=== PATIENT | male | born 1955 | race Caucasian/White ===

== ENCOUNTER 2016-03-06 15:03 | Observation (INO) | payer MEDICAID ==
[~2016-03-06] VITALS: Ht 188 cm; Wt 77.8 kg
[~2016-03-06 15:03] MED LIST: CLOZ100T3 PO; LACT10SO PO; LITH300C2 PO; NEBUMIS6; SPIRCAP INH; VENTAER INH
[2016-03-06 15:05] VITALS: BP 103/60; PULSE 83; RESP 12; TEMP 97.5; O2SAT 97
[2016-03-06] MEDS ORDERED: SODIUM CHLOR 0.9% 1000 ML INJ 1,000 ML IV ONE (16:00)
[2016-03-06] MEDS ORDERED: SODIUM CHLORIDE 0.9% FLUSH 5 ML FLUSH IVF PRN (16:00)
--- NOTE | 2016-03-06 16:03 | PD ---
HPI Chief Complaint: Altered Mental Status Time Seen by Provider: 15:49 Travel History International Travel<30 days: No Contact w/Intl Traveler<30days: No Traveled to known affect area: No History of Present Illness HPI This patient is brought in from his assisted living facility by 2 staff members. He is here for altered mental status. He was seen here in the ER 4 days ago for the same complaint. He had a mildly elevated ammonia was prescribed lactulose and discharged home. He has since worsened. He is very drowsy and cannot walk or do much today. Symptoms are moderate to severe in nature. Duration one week. No alleviating factors. They are giving him the lactulose which doesn't seem to be helping. They report that he is not and has never been an alcohol abuser. He is a cigarette smoker and has history of lung cancer with lobectomy. No fevers or head injury reported. PFSH Past Medical History Arthritis: No Asthma: Yes Blood Disorders: No Heart Rhythm Problems: No Cancer: No High Cholesterol: No Chest Pain: No Congestive Heart Failure: No COPD: Yes Diminished Hearing: No Endocrine: No GERD: No Genitourinary: No Hiatal Hernia: No Immune Disorder: No Kidney Stones: No Musculoskeletal: No Neurologic: No Psychiatric: Yes (schizo affective disorder) Reproductive: No Respiratory: Yes (COPD) Migraines: No Renal Failure: No Schizophrenia: Yes (AFFECTIVE) Seizures: No Sleep Apnea: No Ulcer: No Past Surgical History Abdominal Surgery: Yes (HERNIA REPAIR) Cardiac Surgery: No Ear Surgery: No Endocrine Surgery: No Eye Surgery: No Genitourinary Surgery: Yes (RIGHT IHR) Gynecologic Surgery: No Neurologic Surgery: Yes Oral Surgery: No Tonsillectomy: Yes Other Surgery: Yes (HERNIA REPAIR, TONSILECTOMY) Social History Alcohol Use: No (DENIES PER MR) Tobacco Use: Yes Substance Use: No Allergies-Medications (Allergen,Severity, Reaction): Coded Allergies: Penicillin (Verified Allergy, Severe, rash, 03/06/16) Reported Meds & Prescriptions Reported Meds & Active Scripts Active Lactulose Liq (Lactulose) 10 Gm/15 Ml Soln 30 Ml PO TID 7 Days Reported Spiriva Handihaler (Tiotropium Inh) 18 Mcg Cap 18 Mcg INH DAILY 1 capsule = 18 mcg [Nebulizer] Ventolin Hfa 18 GM Inh (Albuterol Sulfate) 90 Mcg/Act Aer 1 Puff INH Q4H PRN Clozapine 100 Mg Tab 100 Mg PO BID [place] Carbonate 300 Mg Cap 300 Mg PO BID Review of Systems General / Constitutional: No: Fever Eyes: No: Visual changes HENT: No: Headaches Cardiovascular: No: Chest Pain or Discomfort Respiratory: No: Shortness of Breath Gastrointestinal: Positive: Loss of Appetite, No: Abdominal Pain Genitourinary: No: Dysuria Musculoskeletal: Positive: Weakness, No: Pain Skin: No Rash Neurologic: Positive: Weakness, Change in Mentation Psychiatric: No: Depression Endocrine: No: Polydipsia Hematologic/Lymphatic: No: Easy Bruising Physical Exam Narrative GENERAL: Well-nourished, well-developed patient in no apparent distress. SKIN: Warm and dry. HEAD: Atraumatic. Normocephalic. EYES: Pupils equal and round. No scleral icterus. No injection or drainage. ENT: No nasal bleeding or discharge. Mucous membranes pink and moist. NECK: Trachea midline. No JVD. No meningeal signs CARDIOVASCULAR: Regular rate and rhythm. No murmur appreciated. RESPIRATORY: No accessory muscle use. Clear to auscultation. Breath sounds equal bilaterally. GASTROINTESTINAL: Abdomen soft, non-tender, nondistended. Hepatic and splenic margins not palpable. MUSCULOSKELETAL: No obvious deformities. No clubbing. No cyanosis. No edema. NEUROLOGICAL: Awake but very drowsy. He is confused. No obvious cranial nerve deficits. Difficult to gauge motor strength or sensation as he does not participate in the exam. Soft-spoken barely understandable speech. PSYCHIATRIC: hAs flat mood and affect; insight and judgment poor. Data Data Last Documented VS Vital Signs Date Time Temp Pulse Resp B/P Pulse Ox O2 Delivery O2 Flow Rate FiO2 03/06/16 15:05 97.5 83 12 103/60 97 Orders Alcohol (Ethanol) (03/06/16 15:52) Ammonia (03/06/16 15:52) Complete Blood Count With Diff (03/06/16 15:52) Comprehensive Metabolic Panel (03/06/16 15:52) Thyroid Stimulating Hormone (03/06/16 15:52) Ct Brain W/O Iv Contrast(Rout) (03/06/16 15:52) Blood Glucose (03/06/16 15:52) Ecg Monitoring (03/06/16 15:52) Iv Access Insert/Monitor (03/06/16 15:52) Cath For Specimen (03/06/16 15:52) Oximetry (03/06/16 15:52) Sodium Chloride 0.9% Flush (Ns Flush) (03/06/16 16:00) Sodium Chlor 0.9% 1000 Ml Inj (Ns 1000 M (03/06/16 16:00) Labs Laboratory Tests Test 03/06/16 03/06/16 14:10 16:50 White Blood Count 12.7 TH/MM3 Red Blood Count 4.20 MIL/MM3 Hemoglobin 13.0 GM/DL Hematocrit 39.1 % Mean Corpuscular Volume 93.1 FL Mean Corpuscular Hemoglobin 30.9 PG Mean Corpuscular Hemoglobin 33.2 % Concent Red Cell Distribution Width 13.6 % Platelet Count 246 TH/MM3 Mean Platelet Volume 8.0 FL Neutrophils (%) (Auto) 86.3 % Lymphocytes (%) (Auto) 6.3 % Monocytes (%) (Auto) 6.7 % Eosinophils (%) (Auto) 0.6 % Basophils (%) (Auto) 0.1 % Neutrophils # (Auto) 11.0 TH/MM3 Lymphocytes # (Auto) 0.8 TH/MM3 Monocytes # (Auto) 0.9 TH/MM3 Eosinophils # (Auto) 0.1 TH/MM3 Basophils # (Auto) 0.0 TH/MM3 CBC Comment DIFF FINAL Differential Comment Sodium Level 136 MEQ/L Potassium Level 3.9 MEQ/L Chloride Level 100 MEQ/L Carbon Dioxide Level 28.1 MEQ/L Anion Gap 8 MEQ/L Blood Urea Nitrogen 17 MG/DL Creatinine 1.00 MG/DL Estimat Glomerular Filtration 76 ML/MIN Rate Random Glucose 123 MG/DL Calcium Level 9.3 MG/DL Total Bilirubin 0.4 MG/DL Aspartate Amino Transf 38 U/L (AST/SGOT) Alanine Aminotransferase 39 U/L (ALT/SGPT) Alkaline Phosphatase 113 U/L Total Protein 7.4 GM/DL Albumin 3.4 GM/DL Thyroid Stimulating Hormone 3.780 uIU/ML 3rd Gen Ethyl Alcohol Level 4 MG/DL Ammonia 16 MCM[facility]/L [facility] Medical Decision Making Medical Screen Exam Complete: Yes Emergency Medical Condition: Yes Medical Record Reviewed: Yes Differential Diagnosis Hepatic encephalopathy, intracranial hemorrhage, electrolyte abnormality Narrative Course I have reviewed the patient's electronic medical record. Reviewed his workup from 4 days ago. 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 He had a catheterized urine but didn't have much urine to send. He doesn't want to be catheterized again. Looking back to the records this patient is here frequently for mental status evaluations. This is certainly not a new problem for him. I don't see anything new or emergent or acute going on. He is much improved when I reevaluated him. He is now alert and conversant. I walked around with him in the department. He is not steady and I recommended walker use. He will be significant fall risk. I discussed placement with the patient and case management. institutional asset manager Sage has called to the [facility] staff and requested they come pick him up as well as discussed with the [facility] physician who is in [place] and rounds there once a month about placing him in a intermediate. I don't think he has hepatic encephalopathy. He has no history of liver disease and is normal LFTs are normal ammonia. However, [facility] staff and refused to come get him. They say it is not safe for him to be there. They will not come pick him up. Case management has requested hospitalist to do 23 hour observation while they assist with things. The patient's sister is trying to get him placed in [place] but so far that is not been finalized. In summary is an extremely challenging disposition. He's been living at an [facility] for 15 years but they have refused to take him back and will not come get him. He is certainly not safe to be unsupervised. I've called hospitalist to do the observation as recommended by case management. Diagnosis Primary Impression: Altered mental status Qualified Code: R40.4 - Transient alteration of awareness Additional Impressions: Unsteady gait Generalized weakness Schizoaffective disorder Qualified Code: F25.9 - Schizoaffective disorder, unspecified type Med/Other Pt SpecificInfo: Other Surya Arrington MD Mar 06, 2016 16:02
[2016-03-06 16:32] LABS: BASOPHIL % 0.1 % (0.0-2.0); EOSINOPHIL # 0.1 TH/MM3 (0-0.4); EOSINOPHIL % 0.6 % (0.0-4.0); HEMATOCRIT 39.1 % (39.0-51.0); HEMO FLAGS DIFF FINAL; LYMPH % 6.3 % (9.0-44.0); LYMPHOCYTE # 0.8 TH/MM3 (1.0-4.8); MEAN CELL VOLUME 93.1 FL (80.0-100.0); MEAN CORPUSCULAR HEMOGLOBIN 30.9 PG (27.0-34.0); MEAN CORPUSCULAR HGB CONC 33.2 % (32.0-36.0); MONO % 6.7 % (0.0-8.0); NEUT % 86.3 % (16.0-70.0); PLATELET COUNT 246 TH/MM3 (150-450); RED CELL DISTRIBUTION WIDTH 13.6 % (11.6-17.2); WHITE BLOOD COUNT 12.7 TH/MM3 (4.0-11.0)
--- NOTE | 2016-03-06 16:43 | RADRPT ---
EXAM DATE/TIME: 03/06/2016 16:22 [facility] COMPARISON: CT BRAIN W/O CONTRAST, October 28, 2015, 12:59. INDICATIONS : Altered mental status. RADIATION DOSE: 47.65 CTDIvol (mGy) MEDICAL HISTORY : Cerebrovascular disease. Cardiovascular disease Diabetes SURGICAL HISTORY : None. ENCOUNTER: Initial ACUITY: 1 day PAIN SCALE: 0/10 LOCATION: cranial TECHNIQUE: Multiple contiguous axial images were obtained of the head. Using automated exposure control and adj ustment of the mA and/or kV according to patient size, radiation dose was kept as low as reasonably a chievable to obtain optimal diagnostic quality images. FINDINGS: There is stable moderate symmetric ventriculomegaly. No evidence of intracranial mass or hemorrhage. Nothing to suggest acute infarction. Extracranial structures are benign and intact. CONCLUSION: Stable symmetric moderate ventriculomegaly Yuval Chavarria MD on March 06, 2016 at 16:38 Board Certified Radiologist. This report was verified electronically.
[2016-03-06 17:00] LABS: ANION GAP 8 MEQ/L (5-15); AST (GOT) 38 U/L (15-37); BICARBONATE 28.1 MEQ/L (21.0-32.0); BLOOD UREA NITROGEN 17 MG/DL (7-18); CHLORIDE 100 MEQ/L (98-107); GLOMERULAR FILTRATION RATE 76 ML/MIN (>89); POTASSIUM 3.9 MEQ/L (3.5-5.1); SODIUM (NA) 136 MEQ/L (136-145)
[2016-03-06 17:10] LABS: ALKALINE PHOSPHATASE 113 U/L (45-117); ALT (GPT) 39 U/L (12-78); TOTAL BILIRUBIN ADULT 0.4 MG/DL (0.2-1.0)
[2016-03-06] MEDS ORDERED: SODIUM CHLORIDE 0.9% FLUSH 5 ML FLUSH FLUSH PRN (19:45)
[2016-03-06] MEDS ORDERED: RESP: ALBUTEROL 2.5 MG/IPRATROPIUM 0.5 MG NEB (PRN) NEB (19:45)
[2016-03-06] MEDS ORDERED: NALOXONE HCL 0.4 MG/ML AMP IV PRN (19:45)
[2016-03-06 20:15] VITALS: BP 100/60; PULSE 80; RESP 20; O2SAT 96
[2016-03-06 20:16] VITALS: PULSE 80; RESP 20; O2SAT 96
[2016-03-06 20:23] VITALS: O2SAT 96
[2016-03-06 21:17] VITALS: BP 140/65; PULSE 79; RESP 16; TEMP 99.2; O2SAT 95
[2016-03-06] MEDS: SODIUM CHLORIDE 0.9% FLUSH 5 ML FLUSH FLUSH SCH (21:49)
[2016-03-06] MEDS: cloZAPine 100 MG TAB PO SCH (21:49)
[2016-03-06] MEDS: LITHIUM CARBONATE 300 MG CAP PO SCH (21:49)
[2016-03-06 23:20] VITALS: PULSE 78
[2016-03-07] VITALS (8 sets, daily range): BP systolic 101–127; BP diastolic 50–69; PULSE 72–81; RESP 15–20; TEMP 96.8–98.4; O2SAT 95–100
--- NOTE | 2016-03-07 04:07 | HHI.HP ---
HPI Service [facility] Primary Care Physician Edyta Goode MD Admission Diagnosis AMS,gen weakness,unsteady gait,schizoaffective Diagnoses: Chief Complaint: Altered mental status Travel History International Travel<30 Days: No Contact w/Intl Traveler <30 Da: No Traveled to Known Affected Are: No History of Present Illness History taken from RN and communication with ED physician. Patient is very sleepy and uncooperative with questions. 60-year-old male with a history of asthma, schizoaffective disorder, COPD presented to the ED with altered mental status from his [facility]. Per ED report the patient was sent from his [facility] for increased altered mental status and they refused to take him back. Patient was seen with the same symptoms 4 days ago and was noted to have an ammonia level of 68, he was then discharged back to the [facility] with lactulose by mouth. The [facility] facility stated patient has had increasing confusion and altered mental status despite lactulose use. Review of Systems ROS Limitations: Uncooperative (patient is sleepy and uncooperative with questioning's for ROS) Past Family Social History Past Medical History Per EMR Asthma Schizoaffective disorder COPD Past Surgical History Per EMR Hernia repair Tonsillectomy Reported Medications Reported Meds & Active Scripts Active Lactulose Liq (Lactulose) 10 Gm/15 Ml Soln 30 Ml PO TID 7 Days Reported Spiriva Handihaler (Tiotropium Inh) 18 Mcg Cap 18 Mcg INH DAILY 1 capsule = 18 mcg [Nebulizer] Ventolin Hfa 18 GM Inh (Albuterol Sulfate) 90 Mcg/Act Aer 1 Puff INH Q4H PRN Clozapine 100 Mg Tab 100 Mg PO BID [place] Carbonate 300 Mg Cap 300 Mg PO BID Allergies: Coded Allergies: Penicillin (Verified Allergy, Severe, rash, 03/06/16) Active Ordered Medications Current Medications Medications (Trade) Dose Ordered Sig/Sadaf Route Start Time Stop Time Status Last Admin (NS Flush) 2 ml UNSCH PRN IVF 03/06/16 16:00 (NS Flush) 2 ml UNSCH PRN FLUSH 03/06/16 19:45 (NS Flush) 2 ml BID FLUSH 03/06/16 21:00 03/06/16 21:49 (Narcan Inj) 0.4 mg UNSCH PRN IV 03/06/16 19:45 (Clozaril) 100 mg BID PO 03/06/16 21:00 03/06/16 21:49 ([place] Carbonate) 300 mg BID PO 03/06/16 21:00 03/06/16 21:49 Family History Patient is uncooperative and unable to provide family history Social History Patient is uncooperative and unable to provide social history Physical Exam Vital Signs Vital Signs Date Time Temp Pulse Resp B/P Pulse Ox O2 Delivery O2 Flow Rate FiO2 03/07/16 00:00 97.8 81 16 113/69 98 03/06/16 23:20 78 03/06/16 21:17 99.2 79 16 140/65 95 03/06/16 20:23 96 03/06/16 20:16 80 20 96 03/06/16 20:15 80 20 100/60 96 03/06/16 15:05 97.5 83 12 103/60 97 Physical Exam GENERAL: This is a malnourished thin male in no apparent distress. SKIN: No rashes, ecchymoses or lesions. Cool and dry. HEAD: Atraumatic. Normocephalic. Temporal wasting EYES: Pupils equal round and reactive. ENT: Nose without bleeding, purulent drainage or septal hematoma. Airway patent. NECK: Trachea midline. No JVD or lymphadenopathy. Supple, nontender, no meningeal signs. CARDIOVASCULAR: Regular rate and rhythm without murmurs, gallops, or rubs. RESPIRATORY: Clear to auscultation. Breath sounds equal bilaterally. No wheezes , rales, or rhonchi. GASTROINTESTINAL: Abdomen soft, non-tender, nondistended. No guarding. MUSCULOSKELETAL: Extremities without clubbing, cyanosis, or edema. No joint tenderness, effusion, or edema noted. No calf tenderness. . NEUROLOGICAL: Sleepy and uncooperative. Motor and sensory grossly within normal limits. Normal speech. Laboratory Laboratory Tests Test 03/06/16 03/06/16 14:10 16:50 White Blood Count 12.7 Red Blood Count 4.20 Hemoglobin 13.0 Hematocrit 39.1 Mean Corpuscular Volume 93.1 Mean Corpuscular Hemoglobin 30.9 Mean Corpuscular Hemoglobin 33.2 Concent Red Cell Distribution Width 13.6 Platelet Count 246 Mean Platelet Volume 8.0 Neutrophils (%) (Auto) 86.3 Lymphocytes (%) (Auto) 6.3 Monocytes (%) (Auto) 6.7 Eosinophils (%) (Auto) 0.6 Basophils (%) (Auto) 0.1 Neutrophils # (Auto) 11.0 Lymphocytes # (Auto) 0.8 Monocytes # (Auto) 0.9 Eosinophils # (Auto) 0.1 Basophils # (Auto) 0.0 CBC Comment DIFF FINAL Differential Comment Sodium Level 136 Potassium Level 3.9 Chloride Level 100 Carbon Dioxide Level 28.1 Anion Gap 8 Blood Urea Nitrogen 17 Creatinine 1.00 Estimat Glomerular Filtration 76 Rate Random Glucose 123 Calcium Level 9.3 Total Bilirubin 0.4 Aspartate Amino Transf 38 (AST/SGOT) Alanine Aminotransferase 39 (ALT/SGPT) Alkaline Phosphatase 113 Total Protein 7.4 Albumin 3.4 Thyroid Stimulating Hormone 3.780 3rd Gen Ethyl Alcohol Level 4 Ammonia 16 Result Diagram: 03/06/16 1410 03/06/16 1410 Assessment and Plan Problem List: (1) Encephalopathy ICD Code: G93.40 Status: Acute (2) Malnutrition ICD Code: E46 Status: Acute (3) Leukocytosis ICD Code: D72.829 Status: Acute (4) COPD (chronic obstructive pulmonary disease) ICD Code: J44.9 Status: Chronic Assessment and Plan 60-year-old male with a history of asthma, schizoaffective disorder and COPD presented with: Encephalopathy Images reviewed: Head CT unremarkable Labs: Ammonia 16 -Continue neuro checks -Fall precautions -PT eval and treat Leukocytosis Labs: WBC is 12.7, neutrophils 86% -Monitor CBC in a.m. -UA pending Malnutrition, evidence by temporal wasting -Dietitian request for recommendations -Regular diet COPD, chronic -DuoNeb's every 4hr DVT prophylaxis: SCDs Written by Lisbeth FLOOD, acting as scribe for Dr. Meehan on 03/07/16 at 0200. The documentation accurately reflects the work performed [id number] and decisions made by me and the physician Dr Meehan on 03/07/16. The documentation accurately reflects the work performed [id number] by me on 03/07/16 at 0200 Discussed Condition With RN and ED physician Lisbeth Leung Mar 07, 2016 04:07 Clementine Meehan MD Mar 12, 2016 07:27
[2016-03-07] MEDS: cloZAPine 100 MG TAB PO SCH ×2 (08:00→20:46)
[2016-03-07] MEDS: LITHIUM CARBONATE 300 MG CAP PO SCH ×2 (08:00→20:46)
[2016-03-07] MEDS: SODIUM CHLORIDE 0.9% FLUSH 5 ML FLUSH FLUSH SCH ×2 (08:01→20:47)
--- NOTE | 2016-03-07 08:35 | HHI.PR ---
Subjective Remarks in no acute distress. walking with PT with unsteady gait. denies any pain. Objective Vitals Vital Signs Date Time Temp Pulse Resp B/P Pulse Ox O2 Delivery O2 Flow Rate FiO2 03/07/16 08:17 98.4 74 18 126/68 95 03/07/16 05:04 97.8 76 18 127/68 96 03/07/16 00:00 97.8 81 16 113/69 98 03/06/16 23:20 78 03/06/16 21:17 99.2 79 16 140/65 95 03/06/16 20:23 96 03/06/16 20:16 80 20 96 03/06/16 20:15 80 20 100/60 96 03/06/16 15:05 97.5 83 12 103/60 97 Result Diagram: 03/06/16 1410 03/06/16 1410 Imaging Last Impressions Head CT 03/06/16 1552 Signed Impressions: Service Date/Time: Sunday, March 06, 2016 16:22 - CONCLUSION: Stable symmetric moderate ventriculomegaly Yuval Chavarria MD Objective Remarks GENERAL: This is a well-nourished, well-developed patient, in no apparent distress. CARDIOVASCULAR: Regular rate and regular rhythm without murmurs, gallops, or rubs. RESPIRATORY: Clear to auscultation. Breath sounds equal bilaterally. No wheezes , rales, or rhonchi. GASTROINTESTINAL: Abdomen soft, non-tender, nondistended. Normal, active bowel sounds MUSCULOSKELETAL: Extremities without clubbing, cyanosis, or edema. NEURO: awake and alert Procedures none Medications and IVs Current Medications IV Flush 2 ml 2 ml UNSCH PRN IVF FLUSH AFTER USING IV ACCESS; Start 03/06/16 at 16:00 Sodium Chloride (NS 1000 ml Inj) 1,000 ml @ 2,000 mls/hr Q30M ONCE IV Last administered on 03/06/16at 16:11; Start 03/06/16 at 16:00; Stop 03/06/16 at 16:29 ; Status DC IV Flush (NS Flush) 2 ml UNSCH PRN FLUSH FLUSH AFTER USING IV ACCESS; Start at 19:45 IV Flush (NS Flush) 2 ml BID FLUSH Last administered on 03/07/16at 08:01; Start 03/06/16 at 21:00 Naloxone HCl (Narcan Inj) 0.4 mg UNSCH PRN IV SEE LABEL COMMENTS; Start at 19:45 Clozapine (Clozaril) 100 mg BID PO Last administered on 03/07/16at 08:00; Start 03/06/16 at 21:00 [place] Carbonate ([place] Carbonate) 300 mg BID PO Last administered on at 08:00; Start 03/06/16 at 21:00 Albuterol/ Ipratropium (Duoneb Neb) 1 ampule Q4HR NEB PRN NEB wheezing; Start 03/06/16 at 19:45 A/P Assessment and Plan A/P Encephalopathy Images reviewed: Head CT unremarkable Labs: Ammonia 16 -Continue neuro checks -Fall precautions -PT eval and treat Leukocytosis Labs: WBC is 12.7, neutrophils 86% -Monitor CBC in a.m. -UA pending Malnutrition, evidence by temporal wasting -Dietitian request for recommendations -Regular diet COPD, chronic -DuoNeb's every 4hr Bipolar disorder resume home meds DVT prophylaxis: lovenox Discharge Planning case management for dc planning to SNF. Blanca Anderson MD Mar 07, 2016 08:35
[2016-03-07 09:54] LABS: AUTOMATED NEUTROPHIL # 8.8 TH/MM3 (1.8-7.7); BASOPHIL % 0.1 % (0.0-2.0); EOSINOPHIL # 0.1 TH/MM3 (0-0.4); EOSINOPHIL % 1.2 % (0.0-4.0); HEMATOCRIT 35.7 % (39.0-51.0); HEMO FLAGS DIFF FINAL; LYMPH % 10.5 % (9.0-44.0); LYMPHOCYTE # 1.2 TH/MM3 (1.0-4.8); MEAN CELL VOLUME 93.5 FL (80.0-100.0); MEAN CORPUSCULAR HEMOGLOBIN 30.2 PG (27.0-34.0); MEAN CORPUSCULAR HGB CONC 32.3 % (32.0-36.0); MONO % 7.8 % (0.0-8.0); NEUT % 80.4 % (16.0-70.0); PLATELET COUNT 231 TH/MM3 (150-450); RED BLOOD COUNT 3.81 MIL/MM3 (4.50-5.90); RED CELL DISTRIBUTION WIDTH 13.5 % (11.6-17.2)
[2016-03-07] MEDS: ENOXAPARIN SODIUM 40 MG/0.4 ML SYRINGE SQ SCH (10:17)
[2016-03-07 10:55] LABS: BLOOD, URINE NEG (NEG); COMMENT (UR) CULT NOT INDICATED; CULTURE IF INDICATED CULT NOT INDICATED; GLUCOSE,URINE NEG (NEG); KETONE, URINE NEG (NEG); NITRITE,URINE NEG (NEG); URINE COLOR YELLOW (YELLW/STRAW)
[2016-03-08] VITALS (8 sets, daily range): BP systolic 112–153; BP diastolic 56–87; PULSE 67–79; RESP 16–20; TEMP 97.1–98.6; O2SAT 95–98
[2016-03-08] MEDS: LITHIUM CARBONATE 300 MG CAP PO SCH ×2 (07:55→20:58)
[2016-03-08] MEDS: cloZAPine 100 MG TAB PO SCH ×2 (07:55→20:58)
[2016-03-08] MEDS: SODIUM CHLORIDE 0.9% FLUSH 5 ML FLUSH FLUSH SCH ×2 (07:56→20:59)
[2016-03-08] MEDS: ENOXAPARIN SODIUM 40 MG/0.4 ML SYRINGE SQ SCH (07:56)
--- NOTE | 2016-03-08 07:57 | HHI.PR ---
Subjective Remarks resting comfortably with no distress. denies pain. d/w the RN and no acute issues over night. Objective Vitals Vital Signs Date Time Temp Pulse Resp B/P Pulse Ox O2 Delivery O2 Flow Rate FiO2 03/08/16 03:43 97.8 74 20 112/65 97 03/08/16 00:00 97.1 71 20 134/65 98 03/07/16 22:46 73 03/07/16 20:00 97.8 79 20 122/58 98 03/07/16 16:35 98.1 75 16 114/60 95 03/07/16 11:52 96.8 75 15 101/50 100 03/07/16 08:45 72 03/07/16 08:17 98.4 74 18 126/68 95 Result Diagram: 03/07/16 0900 03/06/16 1410 Imaging Last Impressions Head CT 03/06/16 1552 Signed Impressions: Service Date/Time: Sunday, March 06, 2016 16:22 - CONCLUSION: Stable symmetric moderate ventriculomegaly Yuval Chavarria MD Objective Remarks GENERAL: This is a well-nourished, well-developed patient, in no apparent distress. CARDIOVASCULAR: Regular rate and regular rhythm without murmurs, gallops, or rubs. RESPIRATORY: Clear to auscultation. Breath sounds equal bilaterally. No wheezes , rales, or rhonchi. GASTROINTESTINAL: Abdomen soft, non-tender, nondistended. Normal, active bowel sounds MUSCULOSKELETAL: Extremities without clubbing, cyanosis, or edema. NEURO: awake and alert Procedures none Medications and IVs Current Medications IV Flush 2 ml 2 ml UNSCH PRN IVF FLUSH AFTER USING IV ACCESS; Start 03/06/16 at 16:00 Sodium Chloride (NS 1000 ml Inj) 1,000 ml @ 2,000 mls/hr Q30M ONCE IV Last administered on 03/06/16at 16:11; Start 03/06/16 at 16:00; Stop 03/06/16 at 16:29 ; Status DC IV Flush (NS Flush) 2 ml UNSCH PRN FLUSH FLUSH AFTER USING IV ACCESS; Start at 19:45 IV Flush (NS Flush) 2 ml BID FLUSH Last administered on 03/07/16at 20:47; Start 03/06/16 at 21:00 Naloxone HCl (Narcan Inj) 0.4 mg UNSCH PRN IV SEE LABEL COMMENTS; Start at 19:45 Clozapine (Clozaril) 100 mg BID PO Last administered on 03/07/16at 20:46; Start 03/06/16 at 21:00 [place] Carbonate ([place] Carbonate) 300 mg BID PO Last administered on at 20:46; Start 03/06/16 at 21:00 Albuterol/ Ipratropium (Duoneb Neb) 1 ampule Q4HR NEB PRN NEB wheezing; Start 03/06/16 at 19:45 Enoxaparin Sodium (Lovenox Inj) 40 mg Q24H SQ Last administered on 03/07/16at 10:17; Start 03/07/16 at 09:00 A/P Assessment and Plan A/P Encephalopathy- improving Images reviewed: Head CT unremarkable Labs: Ammonia 16 -Continue neuro checks -Fall precautions -PT eval and treat Leukocytosis-resolved UA negative. Malnutrition, evidence by temporal wasting -Dietitian request for recommendations -Regular diet COPD, chronic -DuoNeb's every 4hr Bipolar disorder resumed home meds DVT prophylaxis: lovenox tried to contact the sister- but was not successful. Discharge Planning case management for dc planning to SNF. Blanca Anderson MD Mar 08, 2016 07:57
[2016-03-08] MEDS: TIOTROPIUM BROMIDE 18 MCG INH INH SCH (09:43)
[2016-03-09] VITALS (10 sets, daily range): BP systolic 99–116; BP diastolic 55–69; PULSE 67–79; RESP 18–20; TEMP 97.4–98.1; O2SAT 96–100
--- NOTE | 2016-03-09 07:56 | HHI.PR ---
Subjective Remarks resting comfortably with no distress. no fever. no pain. Objective Vitals Vital Signs Date Time Temp Pulse Resp B/P Pulse Ox O2 Delivery O2 Flow Rate FiO2 03/09/16 04:07 97.6 78 20 113/69 96 03/09/16 03:48 67 03/09/16 00:05 68 03/08/16 23:54 97.6 69 20 153/87 97 03/08/16 21:08 98.6 67 20 129/60 97 03/08/16 15:26 98.3 77 18 122/65 95 03/08/16 11:35 98.2 79 16 131/65 95 03/08/16 08:19 98.0 74 16 116/56 98 03/08/16 08:10 78 Result Diagram: 03/07/16 0900 03/06/16 1410 Imaging Last Impressions Head CT 03/06/16 1552 Signed Impressions: Service Date/Time: Sunday, March 06, 2016 16:22 - CONCLUSION: Stable symmetric moderate ventriculomegaly Yuval Chavarria MD Objective Remarks GENERAL: This is a well-nourished, well-developed patient, in no apparent distress. CARDIOVASCULAR: Regular rate and regular rhythm without murmurs, gallops, or rubs. RESPIRATORY: Clear to auscultation. Breath sounds equal bilaterally. No wheezes , rales, or rhonchi. GASTROINTESTINAL: Abdomen soft, non-tender, nondistended. Normal, active bowel sounds MUSCULOSKELETAL: Extremities without clubbing, cyanosis, or edema. NEURO: awake and alert Procedures none Medications and IVs Current Medications IV Flush 2 ml 2 ml UNSCH PRN IVF FLUSH AFTER USING IV ACCESS; Start 03/06/16 at 16:00 Sodium Chloride (NS 1000 ml Inj) 1,000 ml @ 2,000 mls/hr Q30M ONCE IV Last administered on 03/06/16at 16:11; Start 03/06/16 at 16:00; Stop 03/06/16 at 16:29 ; Status DC IV Flush (NS Flush) 2 ml UNSCH PRN FLUSH FLUSH AFTER USING IV ACCESS; Start at 19:45 IV Flush (NS Flush) 2 ml BID FLUSH Last administered on 03/08/16at 07:56; Start 03/06/16 at 21:00 Naloxone HCl (Narcan Inj) 0.4 mg UNSCH PRN IV SEE LABEL COMMENTS; Start at 19:45 Clozapine (Clozaril) 100 mg BID PO Last administered on 03/08/16at 20:58; Start 03/06/16 at 21:00 [place] Carbonate ([place] Carbonate) 300 mg BID PO Last administered on at 20:58; Start 03/06/16 at 21:00 Albuterol/ Ipratropium (Duoneb Neb) 1 ampule Q4HR NEB PRN NEB wheezing; Start 03/06/16 at 19:45 Enoxaparin Sodium (Lovenox Inj) 40 mg Q24H SQ Last administered on 03/08/16at 07:56; Start 03/07/16 at 09:00 Tiotropium [place] (Spiriva Inh) 18 mcg DAILY INH Last administered on at 09:43; Start 03/08/16 at 09:00 A/P Assessment and Plan A/P Encephalopathy- improving Images reviewed: Head CT unremarkable Labs: Ammonia 16 -Continue neuro checks -Fall precautions -PT eval and treat Leukocytosis-resolved UA negative. Malnutrition, evidence by temporal wasting -Dietitian request for recommendations -Regular diet COPD, chronic -DuoNeb's every 4hr Bipolar disorder resumed home meds DVT prophylaxis: lovenox Discharge Planning dc planning to SNF in progress. Blanca Anderson MD Mar 09, 2016 07:56
[2016-03-09] MEDS: cloZAPine 100 MG TAB PO SCH ×2 (08:41→20:29)
[2016-03-09] MEDS: LITHIUM CARBONATE 300 MG CAP PO SCH ×2 (08:41→20:29)
[2016-03-09] MEDS: SODIUM CHLORIDE 0.9% FLUSH 5 ML FLUSH FLUSH SCH ×2 (08:41→20:29)
[2016-03-09] MEDS: ENOXAPARIN SODIUM 40 MG/0.4 ML SYRINGE SQ SCH (08:41)
[2016-03-09] MEDS: TIOTROPIUM BROMIDE 18 MCG INH INH SCH (08:41)
[2016-03-10] VITALS (10 sets, daily range): BP systolic 105–189; BP diastolic 57–79; PULSE 67–84; RESP 14–20; TEMP 96.8–98.1; O2SAT 94–98
--- NOTE | 2016-03-10 07:39 | HHI.PR ---
Subjective Remarks resting comfortably with no distress. no new complaints. Objective Vitals Vital Signs Date Time Temp Pulse Resp B/P Pulse Ox O2 Delivery O2 Flow Rate FiO2 03/10/16 03:49 97.6 70 20 117/57 97 03/10/16 03:40 67 03/10/16 00:07 97.6 74 18 111/59 94 03/09/16 23:58 73 03/09/16 20:08 67 03/09/16 19:55 97.4 67 20 108/55 97 03/09/16 16:02 98.1 79 18 116/58 100 03/09/16 12:00 97.6 73 18 115/60 97 03/09/16 08:03 97.5 72 18 99/55 98 03/09/16 08:00 73 I/O 03/09/16 03/09/16 03/09/16 03/10/16 03/10/16 03/10/16 07:00 15:00 23:00 07:00 15:00 23:00 Intake Total 800 ml Output Total 300 ml Balance 800 ml -300 ml Intake Oral 800 ml Output Urine Total 300 ml # Voids 1 4 1 # Bowel Movements 0 Result Diagram: 03/07/16 0900 03/06/16 1410 Imaging Last Impressions Head CT 03/06/16 1552 Signed Impressions: Service Date/Time: Sunday, March 06, 2016 16:22 - CONCLUSION: Stable symmetric moderate ventriculomegaly Yuval Chavarria MD Objective Remarks GENERAL: This is a well-nourished, well-developed patient, in no apparent distress. CARDIOVASCULAR: Regular rate and regular rhythm without murmurs, gallops, or rubs. RESPIRATORY: Clear to auscultation. Breath sounds equal bilaterally. No wheezes , rales, or rhonchi. GASTROINTESTINAL: Abdomen soft, non-tender, nondistended. Normal, active bowel sounds MUSCULOSKELETAL: Extremities without clubbing, cyanosis, or edema. NEURO: awake and alert Procedures none Medications and IVs Current Medications IV Flush 2 ml 2 ml UNSCH PRN IVF FLUSH AFTER USING IV ACCESS; Start 03/06/16 at 16:00 Sodium Chloride (NS 1000 ml Inj) 1,000 ml @ 2,000 mls/hr Q30M ONCE IV Last administered on 03/06/16at 16:11; Start 03/06/16 at 16:00; Stop 03/06/16 at 16:29 ; Status DC IV Flush (NS Flush) 2 ml UNSCH PRN FLUSH FLUSH AFTER USING IV ACCESS; Start at 19:45 IV Flush (NS Flush) 2 ml BID FLUSH Last administered on 03/08/16at 07:56; Start 03/06/16 at 21:00 Naloxone HCl (Narcan Inj) 0.4 mg UNSCH PRN IV SEE LABEL COMMENTS; Start at 19:45 Clozapine (Clozaril) 100 mg BID PO Last administered on 03/09/16at 20:29; Start 03/06/16 at 21:00 [place] Carbonate ([place] Carbonate) 300 mg BID PO Last administered on at 20:29; Start 03/06/16 at 21:00 Albuterol/ Ipratropium (Duoneb Neb) 1 ampule Q4HR NEB PRN NEB wheezing; Start 03/06/16 at 19:45 Enoxaparin Sodium (Lovenox Inj) 40 mg Q24H SQ Last administered on 03/09/16at 08:41; Start 03/07/16 at 09:00 Tiotropium [place] (Spiriva Inh) 18 mcg DAILY INH Last administered on at 08:41; Start 03/08/16 at 09:00 A/P Assessment and Plan A/P Encephalopathy- improving Images reviewed: Head CT unremarkable Labs: Ammonia 16 -Continue neuro checks -Fall precautions -PT eval and treat Leukocytosis-resolved UA negative. Malnutrition, evidence by temporal wasting -Dietitian request for recommendations -Regular diet COPD, chronic -DuoNeb's every 4hr Bipolar disorder resumed home meds DVT prophylaxis: lovenox Discharge Planning awaiting SNF placement. Blanca Anderson MD Mar 10, 2016 07:38
[2016-03-10] MEDS: TIOTROPIUM BROMIDE 18 MCG INH INH SCH (08:54)
[2016-03-10] MEDS: ENOXAPARIN SODIUM 40 MG/0.4 ML SYRINGE SQ SCH (08:54)
[2016-03-10] MEDS: LITHIUM CARBONATE 300 MG CAP PO SCH ×2 (08:55→20:09)
[2016-03-10] MEDS: cloZAPine 100 MG TAB PO SCH ×2 (08:55→20:09)
[2016-03-10] MEDS: SODIUM CHLORIDE 0.9% FLUSH 5 ML FLUSH FLUSH SCH ×2 (08:55→20:09)
[2016-03-11] VITALS (7 sets, daily range): BP systolic 101–120; BP diastolic 56–65; PULSE 68–79; RESP 16–18; TEMP 96.3–98.2; O2SAT 96–98
--- NOTE | 2016-03-11 07:38 | HHI.PR ---
Subjective Remarks resting comfortably with no distress. no new complaints. Objective Vitals Vital Signs Date Time Temp Pulse Resp B/P Pulse Ox O2 Delivery O2 Flow Rate FiO2 03/11/16 03:49 97.4 68 18 107/62 97 03/10/16 23:52 97.6 70 20 114/62 96 03/10/16 21:10 71 03/10/16 19:29 97.6 69 20 143/79 98 03/10/16 17:30 96.8 69 16 120/64 97 03/10/16 12:42 98.1 72 14 105/57 97 03/10/16 08:47 97.7 67 15 110/60 96 03/10/16 08:00 84 I/O 03/10/16 03/10/16 03/10/16 03/11/16 03/11/16 03/11/16 06:59 14:59 22:59 06:59 14:59 22:59 Intake Total 800 ml Output Total 300 ml Balance -300 ml 800 ml Intake Oral 800 ml Output Urine Total 300 ml # Voids 1 4 Result Diagram: 03/07/16 0900 Imaging Last Impressions Head CT 03/06/16 1552 Signed Impressions: Service Date/Time: Sunday, March 06, 2016 16:22 - CONCLUSION: Stable symmetric moderate ventriculomegaly Yuval Chavarria MD Objective Remarks GENERAL: This is a well-nourished, well-developed patient, in no apparent distress. CARDIOVASCULAR: Regular rate and regular rhythm without murmurs, gallops, or rubs. RESPIRATORY: Clear to auscultation. Breath sounds equal bilaterally. No wheezes , rales, or rhonchi. GASTROINTESTINAL: Abdomen soft, non-tender, nondistended. Normal, active bowel sounds MUSCULOSKELETAL: Extremities without clubbing, cyanosis, or edema. NEURO: awake and alert Procedures none Medications and IVs Current Medications IV Flush 2 ml 2 ml UNSCH PRN IVF FLUSH AFTER USING IV ACCESS; Start 03/06/16 at 16:00 Sodium Chloride (NS 1000 ml Inj) 1,000 ml @ 2,000 mls/hr Q30M ONCE IV Last administered on 03/06/16at 16:11; Start 03/06/16 at 16:00; Stop 03/06/16 at 16:29 ; Status DC IV Flush (NS Flush) 2 ml UNSCH PRN FLUSH FLUSH AFTER USING IV ACCESS; Start at 19:45 IV Flush (NS Flush) 2 ml BID FLUSH Last administered on 03/08/16at 07:56; Start 03/06/16 at 21:00 Naloxone HCl (Narcan Inj) 0.4 mg UNSCH PRN IV SEE LABEL COMMENTS; Start at 19:45 Clozapine (Clozaril) 100 mg BID PO Last administered on 03/10/16at 20:09; Start 03/06/16 at 21:00 [place] Carbonate ([place] Carbonate) 300 mg BID PO Last administered on at 20:09; Start 03/06/16 at 21:00 Albuterol/ Ipratropium (Duoneb Neb) 1 ampule Q4HR NEB PRN NEB wheezing; Start 03/06/16 at 19:45 Enoxaparin Sodium (Lovenox Inj) 40 mg Q24H SQ Last administered on 03/10/16at 08:54; Start 03/07/16 at 09:00 Tiotropium [place] (Spiriva Inh) 18 mcg DAILY INH Last administered on at 08:54; Start 03/08/16 at 09:00 A/P Assessment and Plan A/P Encephalopathy- improving- at his baseline Images reviewed: Head CT unremarkable Labs: Ammonia 16 -Fall precautions -PT eval and treat Leukocytosis-resolved UA negative. Malnutrition, evidence by temporal wasting -Dietitian request for recommendations -Regular diet COPD, chronic -DuoNeb's every 4hr Bipolar disorder resumed home meds DVT prophylaxis: lovenox Discharge Planning awaiting SNF placement. Blanca Anderson MD Mar 11, 2016 07:38
[2016-03-11] MEDS: SODIUM CHLORIDE 0.9% FLUSH 5 ML FLUSH FLUSH SCH ×2 (09:00→21:00)
[2016-03-11] MEDS: ENOXAPARIN SODIUM 40 MG/0.4 ML SYRINGE SQ SCH (09:50)
[2016-03-11] MEDS: TIOTROPIUM BROMIDE 18 MCG INH INH SCH (09:50)
[2016-03-11] MEDS: LITHIUM CARBONATE 300 MG CAP PO SCH ×2 (09:50→21:15)
[2016-03-11] MEDS: cloZAPine 100 MG TAB PO SCH ×2 (09:50→21:15)
[2016-03-12] VITALS (9 sets, daily range): BP systolic 103–120; BP diastolic 57–71; PULSE 59–79; RESP 14–18; TEMP 97.3–98.5; O2SAT 95–98
[2016-03-12] MEDS: SODIUM CHLORIDE 0.9% FLUSH 5 ML FLUSH FLUSH SCH ×2 (09:00→20:28)
[2016-03-12] MEDS: ENOXAPARIN SODIUM 40 MG/0.4 ML SYRINGE SQ SCH (09:01)
[2016-03-12] MEDS: cloZAPine 100 MG TAB PO SCH ×2 (09:01→20:29)
[2016-03-12] MEDS: TIOTROPIUM BROMIDE 18 MCG INH INH SCH (09:01)
[2016-03-12] MEDS: LITHIUM CARBONATE 300 MG CAP PO SCH ×2 (09:01→20:29)
--- NOTE | 2016-03-12 11:25 | HHI.PR ---
Subjective Remarks resting comfortably with no distress. awaiting snf placement. Objective Vitals Vital Signs Date Time Temp Pulse Resp B/P Pulse Ox O2 Delivery O2 Flow Rate FiO2 03/12/16 08:11 97.3 67 18 113/59 98 03/12/16 08:00 68 03/12/16 04:00 97.9 75 18 104/61 97 03/11/16 20:00 68 03/11/16 19:44 98.2 69 18 101/56 96 03/11/16 15:38 97.6 76 18 120/62 98 03/11/16 11:45 96.3 79 18 101/56 97 I/O 03/11/16 03/11/16 03/11/16 03/12/16 03/12/16 03/12/16 07:00 15:00 23:00 07:00 15:00 23:00 Intake Total 300 ml 500 ml Balance 300 ml 500 ml Intake Oral 300 ml 500 ml # Voids 1 2 Imaging Last Impressions Head CT 03/06/16 1552 Signed Impressions: Service Date/Time: Sunday, March 06, 2016 16:22 - CONCLUSION: Stable symmetric moderate ventriculomegaly Yuval Chavarria MD Objective Remarks GENERAL: This is a well-nourished, well-developed patient, in no apparent distress. CARDIOVASCULAR: Regular rate and regular rhythm without murmurs, gallops, or rubs. RESPIRATORY: Clear to auscultation. Breath sounds equal bilaterally. No wheezes , rales, or rhonchi. GASTROINTESTINAL: Abdomen soft, non-tender, nondistended. Normal, active bowel sounds MUSCULOSKELETAL: Extremities without clubbing, cyanosis, or edema. NEURO: awake and alert Procedures none Medications and IVs Current Medications IV Flush 2 ml 2 ml UNSCH PRN IVF FLUSH AFTER USING IV ACCESS; Start 03/06/16 at 16:00 Sodium Chloride (NS 1000 ml Inj) 1,000 ml @ 2,000 mls/hr Q30M ONCE IV Last administered on 03/06/16at 16:11; Start 03/06/16 at 16:00; Stop 03/06/16 at 16:29 ; Status DC IV Flush (NS Flush) 2 ml UNSCH PRN FLUSH FLUSH AFTER USING IV ACCESS; Start at 19:45 IV Flush (NS Flush) 2 ml BID FLUSH Last administered on 03/11/16at 21:00; Start 03/06/16 at 21:00 Naloxone HCl (Narcan Inj) 0.4 mg UNSCH PRN IV SEE LABEL COMMENTS; Start at 19:45 Clozapine (Clozaril) 100 mg BID PO Last administered on 03/12/16at 09:01; Start 03/06/16 at 21:00 [place] Carbonate ([place] Carbonate) 300 mg BID PO Last administered on at 09:01; Start 03/06/16 at 21:00 Albuterol/ Ipratropium (Duoneb Neb) 1 ampule Q4HR NEB PRN NEB wheezing; Start 03/06/16 at 19:45 Enoxaparin Sodium (Lovenox Inj) 40 mg Q24H SQ Last administered on 03/12/16at 09:01; Start 03/07/16 at 09:00 Tiotropium [place] (Spiriva Inh) 18 mcg DAILY INH Last administered on at 09:01; Start 03/08/16 at 09:00 A/P Assessment and Plan A/P Encephalopathy- improving- at his baseline Images reviewed: Head CT unremarkable Labs: Ammonia 16 -Fall precautions -PT eval and treat Leukocytosis-resolved UA negative. Malnutrition, evidence by temporal wasting -Dietitian request for recommendations -Regular diet COPD, chronic -DuoNeb's every 4hr Bipolar disorder resumed home meds DVT prophylaxis: lovenox Discharge Planning awaiting SNF placement. Blanca Anderson MD Mar 12, 2016 11:25
[2016-03-13] VITALS (7 sets, daily range): BP systolic 102–117; BP diastolic 54–66; PULSE 62–80; RESP 18–19; TEMP 97.7–98.3; O2SAT 96–100
--- NOTE | 2016-03-13 07:28 | HHI.DCPOC ---
Discharge Care Plan Diagnosis: (1) COPD (chronic obstructive pulmonary disease) (2) Unsteady gait (3) Generalized weakness (4) Malnutrition Goals to Promote Your Health * To prevent worsening of your condition and complications * To maintain your health at the optimal level Directions to Meet Your Goals Take your medications as prescribed Follow your dietary instruction Follow activity as directed Keep your appointments as scheduled Take your immunizations and boosters as scheduled If your symptoms worsen call your PCP, if no PCP go to Urgent Care Center or Emergency Room Smoking is Dangerous to Your Health. Avoid second hand smoke Call the 24-hour hour crisis hotline for domestic abuse at Roxie Aldrich PA-C Mar 13, 2016 07:28
[2016-03-13] MEDS: SODIUM CHLORIDE 0.9% FLUSH 5 ML FLUSH FLUSH SCH ×2 (09:00→21:00)
[2016-03-13] MEDS: TIOTROPIUM BROMIDE 18 MCG INH INH SCH (09:00)
[2016-03-13] MEDS: ENOXAPARIN SODIUM 40 MG/0.4 ML SYRINGE SQ SCH (09:29)
[2016-03-13] MEDS: LITHIUM CARBONATE 300 MG CAP PO SCH ×2 (09:29→21:40)
[2016-03-13] MEDS: cloZAPine 100 MG TAB PO SCH ×2 (09:29→21:41)
--- NOTE | 2016-03-13 11:42 | HHI.PR ---
Subjective Remarks Follow up for encephalopathy, placement pending. The patient has no medical complaints today. He is awake, alert, oriented to self only, states the year is 2024 and believes he is in [place]. Denies any headache, lightheadedness/ dizziness, cough, chest pain, shortness of breath, abdominal or urinary complaints. No acute events overnight. Objective Vitals Vital Signs Date Time Temp Pulse Resp B/P Pulse Ox O2 Delivery O2 Flow Rate FiO2 03/13/16 08:28 97.7 62 19 117/66 100 03/13/16 07:44 67 03/13/16 03:58 97.8 64 18 102/64 99 03/12/16 22:59 97.9 59 18 106/71 98 03/12/16 20:05 70 03/12/16 19:21 98.2 72 18 120/57 98 03/12/16 15:36 98.5 76 16 103/58 97 03/12/16 11:55 98.0 79 14 105/60 95 I/O 03/12/16 03/12/16 03/12/16 03/13/16 03/13/16 03/13/16 07:00 15:00 23:00 07:00 15:00 23:00 Intake Total 300 ml 500 ml Balance 300 ml 500 ml Intake Oral 300 ml 500 ml # Voids 2 2 1 Imaging Last Impressions Head CT 03/06/16 1552 Signed Impressions: Service Date/Time: Sunday, March 06, 2016 16:22 - CONCLUSION: Stable symmetric moderate ventriculomegaly Yuval Chavarria MD Objective Remarks GENERAL: Well-developed thin male patient in [facility]. SKIN: Warm and dry. No rash. HEAD: Normocephalic. Atraumatic. Bitemporal wasting noted. NECK: Supple. Trachea midline. CARDIOVASCULAR: Regular rate and rhythm. S1, S2 noted. No murmur appreciated. RESPIRATORY: No accessory muscle use. Clear to auscultation. Breath sounds equal bilaterally. GASTROINTESTINAL: Abdomen soft, non-tender, nondistended. Normoactive bowel sounds x4. MUSCULOSKELETAL: No obvious deformities. Extremities without clubbing, cyanosis , or edema. NEUROLOGICAL: Awake and alert, oriented to self only. No obvious cranial nerve deficits. Motor grossly within normal limits. Moves all extremities spontaneously. Normal speech. PSYCHIATRIC: Pleasantly confused; insight and judgment limited. Procedures none Medications and IVs Current Medications Medications (Trade) Dose Ordered Sig/Sadaf Route Start Time Stop Time Status Last Admin (NS Flush) 2 ml UNSCH PRN IVF 03/06/16 16:00 (NS Flush) 2 ml UNSCH PRN FLUSH 03/06/16 19:45 (NS Flush) 2 ml BID FLUSH 03/06/16 21:00 03/11/16 21:00 (Narcan Inj) 0.4 mg UNSCH PRN IV 03/06/16 19:45 (Clozaril) 100 mg BID PO 03/06/16 21:00 03/13/16 09:29 ([place] Carbonate) 300 mg BID PO 03/06/16 21:00 03/13/16 09:29 (Lovenox Inj) 40 mg Q24H SQ 03/07/16 09:00 03/13/16 09:29 (Spiriva Inh) 18 mcg DAILY INH 03/08/16 09:00 03/12/16 09:01 Urinary Catheter: No Vascular Central Line Catheter: No A/P Problem List: (1) Encephalopathy ICD Code: G93.40 Status: Acute (2) Malnutrition ICD Code: E46 Status: Acute (3) Leukocytosis ICD Code: D72.829 Status: Acute (4) COPD (chronic obstructive pulmonary disease) ICD Code: J44.9 Status: Chronic Assessment and Plan 60-year-old male with a history of asthma, schizoaffective disorder, COPD presented to the ED with altered mental status from his [facility] who refused to take him back. [facility] reporting increasing confusion despite lactulose use. Hepatic Encephalopathy: Head CT images reviewed, unremarkable. Ammonia level on 03/05/16 was 68, on lactulose at [facility]. Presented back to ED on 03/06 with increasing confusion, Ammonia level 16. Improving- appears at his baseline. Has not been on lactulose since admission, oriented to self only, re-check ammonia level. Continue fall precautions. PT consulted, recommends rehab, case management assisting. Leukocytosis: resolved. UA negative. Malnutrition: evidenced by temporal wasting and low BMI 18. Consulted outpatient coder , started patient on Regular diet with Ensure Enlive on all meal trays. COPD: chronic, does not appear to be in exacerbation. Continue Spiriva and DuoNeb's q4h prn. Bipolar disorder: resumed home meds including [place] and Clozapine. Check lithium level. DVT prophylaxis: lovenox Discharge Planning Awaiting SNF placement, case management assisting. Discussed with BAIRON and Dr. Beasley. Attending Statement Attestation Patient seen and examined with JHONNY Cornelius. The exam, history, and the medical decision-making described in the above note were completed with the assistance of the dictating practitioner. I attest that I had a [id number] encounter with the patient on the same day, and personally performed all of the history, exam, or medical decision making. Discussed case with her thoroughly after seeing the patient, reviewed and agreed with the plan. Please see addendum in History, Physical examination. See below for any errata/additional input: No overnight events, patient not very cooperative. Vital signs reviewed Regular rate and rhythm Clear breath sounds Mental status about the same Agree with checking ammonia, still pending placement. Roxie Aldrich PA-C Mar 13, 2016 11:42 Natalie Beasley MD Mar 13, 2016 15:24
[2016-03-14] VITALS (8 sets, daily range): BP systolic 105–118; BP diastolic 52–65; PULSE 66–79; RESP 16–18; TEMP 97.3–98.1; O2SAT 95–99
[2016-03-14] MEDS: cloZAPine 100 MG TAB PO SCH ×2 (08:47→21:33)
[2016-03-14] MEDS: ENOXAPARIN SODIUM 40 MG/0.4 ML SYRINGE SQ SCH (08:47)
[2016-03-14] MEDS: TIOTROPIUM BROMIDE 18 MCG INH INH SCH (08:47)
[2016-03-14] MEDS: LITHIUM CARBONATE 300 MG CAP PO SCH ×2 (08:47→21:33)
[2016-03-14] MEDS: SODIUM CHLORIDE 0.9% FLUSH 5 ML FLUSH FLUSH SCH ×2 (09:00→21:00)
--- NOTE | 2016-03-14 11:26 | HHI.PR ---
Subjective Remarks Follow up for encephalopathy, placement pending. The patient again has no medical complaints, resting comfortable in bed with legs crossed and arms behind his head. Denies any headache, lightheadedness, dizziness, chest pain, cough, shortness of breath, or abdominal complaints. He states he had eggs and cereal for breakfast and has been drinking his shakes. No acute events overnight. He is oriented to self/birthdate, knows he is at [facility] in [place], however unable to recall the month/year. Objective Vitals Vital Signs Date Time Temp Pulse Resp B/P Pulse Ox O2 Delivery O2 Flow Rate FiO2 03/14/16 08:00 79 03/14/16 07:36 97.3 66 16 117/65 99 03/14/16 04:00 97.6 67 18 106/52 95 03/14/16 00:00 97.8 76 16 118/56 98 03/13/16 21:00 72 03/13/16 20:00 97.7 80 18 112/54 96 03/13/16 16:54 98.3 76 19 102/58 96 03/13/16 11:57 98.0 73 18 112/61 98 I/O 03/13/16 03/13/16 03/13/16 03/14/16 03/14/16 03/14/16 07:00 15:00 23:00 07:00 15:00 23:00 Output Total 500 ml Balance -500 ml Output Urine Total 500 ml # Voids 1 2 Imaging Last Impressions Head CT 03/06/16 1552 Signed Impressions: Service Date/Time: Sunday, March 06, 2016 16:22 - CONCLUSION: Stable symmetric moderate ventriculomegaly Yuval Chavarria MD Objective Remarks GENERAL: Well-developed thin male patient in [facility]. SKIN: Warm and dry. No rash. HEAD: Normocephalic. Atraumatic. Bitemporal wasting noted. NECK: Supple. Trachea midline. CARDIOVASCULAR: Regular rate and rhythm. S1, S2 noted. No murmur appreciated. RESPIRATORY: No accessory muscle use. Clear to auscultation. Breath sounds equal bilaterally. GASTROINTESTINAL: Scaphoid abdomen, soft, non-tender, nondistended. Normoactive bowel sounds x4. MUSCULOSKELETAL: No obvious deformities. Extremities without clubbing, cyanosis , or edema. NEUROLOGICAL: Awake and alert, oriented to self only. No obvious cranial nerve deficits. Motor grossly within normal limits. Moves all extremities spontaneously. Normal speech. PSYCHIATRIC: Pleasantly confused; insight and judgment limited. Procedures none Medications and IVs Current Medications Medications (Trade) Dose Ordered Sig/Sadaf Route Start Time Stop Time Status Last Admin (NS Flush) 2 ml UNSCH PRN IVF 03/06/16 16:00 (NS Flush) 2 ml UNSCH PRN FLUSH 03/06/16 19:45 (NS Flush) 2 ml BID FLUSH 03/06/16 21:00 03/11/16 21:00 (Narcan Inj) 0.4 mg UNSCH PRN IV 03/06/16 19:45 (Clozaril) 100 mg BID PO 03/06/16 21:00 03/14/16 08:47 ([place] Carbonate) 300 mg BID PO 03/06/16 21:00 03/14/16 08:47 (Lovenox Inj) 40 mg Q24H SQ 03/07/16 09:00 03/14/16 08:47 (Spiriva Inh) 18 mcg DAILY INH 03/08/16 09:00 03/14/16 08:47 Urinary Catheter: No Vascular Central Line Catheter: No A/P Problem List: (1) Encephalopathy ICD Code: G93.40 Status: Acute (2) Malnutrition ICD Code: E46 Status: Acute (3) Leukocytosis ICD Code: D72.829 Status: Acute (4) COPD (chronic obstructive pulmonary disease) ICD Code: J44.9 Status: Chronic Assessment and Plan 60-year-old male with a history of asthma, schizoaffective disorder, COPD presented to the ED with altered mental status from his [facility] who refused to take him back. [facility] reporting increasing confusion despite lactulose use. Hepatic Encephalopathy: Head CT images reviewed, unremarkable. Ammonia level on 03/05/16 was 68, on lactulose at [facility]. Presented back to ED on 03/06 with increasing confusion, Ammonia level 16. Improving- appears at his baseline. Has not been on lactulose since admission, re-check ammonia level today, labs reviewed, now <10, will not continue lactulose at this time. Continue fall precautions. PT consulted, recommends rehab, case management assisting. Leukocytosis: resolved. UA negative. Malnutrition: evidenced by temporal wasting and low BMI 18. Consulted convenience recycle center tech , started patient on Regular diet with Ensure Enlive on all meal trays. COPD: chronic, does not appear to be in exacerbation. Continue Spiriva and DuoNeb's q4h prn. Bipolar disorder: resumed home meds including [place] and Clozapine. Check lithium level. DVT prophylaxis: lovenox Discharge Planning Awaiting SNF placement, case management assisting. Discussed with case picker and Dr. Beasley. Attending Statement Attestation Patient seen and examined with JHONNY Cornelius. The exam, history, and the medical decision-making described in the above note were completed with the assistance of the dictating practitioner. I attest that I had a [id number] encounter with the patient on the same day, and personally performed all of the history, exam, or medical decision making. Discussed case with her thoroughly after seeing the patient, reviewed and agreed with the plan. Please see addendum in History, Physical examination. See below for any errata/additional input: No overnight events No change in exam Vital signs reviewed Ammonia within normal limits, continue placement. Roxie Aldrich PA-C Mar 14, 2016 11:26 Natalie Beasley MD Mar 14, 2016 16:22
[2016-03-15] VITALS (8 sets, daily range): BP systolic 99–122; BP diastolic 54–64; PULSE 65–96; RESP 14–19; TEMP 96.2–98.6; O2SAT 96–100
[2016-03-15] MEDS: LITHIUM CARBONATE 300 MG CAP PO SCH ×2 (08:22→20:33)
[2016-03-15] MEDS: SODIUM CHLORIDE 0.9% FLUSH 5 ML FLUSH FLUSH SCH ×2 (08:22→20:35)
[2016-03-15] MEDS: ENOXAPARIN SODIUM 40 MG/0.4 ML SYRINGE SQ SCH (08:22)
[2016-03-15] MEDS: cloZAPine 100 MG TAB PO SCH ×2 (08:22→20:34)
[2016-03-15] MEDS: TIOTROPIUM BROMIDE 18 MCG INH INH SCH (08:22)
--- NOTE | 2016-03-15 13:08 | HHI.PR ---
Subjective Remarks Follow-up for encephalopathy and pending placement. Patient has no acute medical complaints today. He's been eating well. Having normal bowel movements. He does not recall when the last time was he got out of bed to walk with PT. Objective Vitals Vital Signs Date Time Temp Pulse Resp B/P Pulse Ox O2 Delivery O2 Flow Rate FiO2 03/15/16 11:43 97.7 78 16 110/59 100 03/15/16 07:40 98.3 65 16 99/54 96 03/15/16 03:38 98.6 69 16 103/64 99 03/15/16 00:12 98.1 72 19 106/64 98 03/14/16 20:12 72 03/14/16 20:06 98.0 68 18 113/60 98 03/14/16 15:23 97.3 72 18 108/57 97 I/O 03/14/16 03/14/16 03/14/16 03/15/16 03/15/16 03/15/16 06:59 14:59 22:59 06:59 14:59 22:59 Output Total 500 ml Balance -500 ml Output Urine Total 500 ml # Voids 2 2 Imaging Last Impressions Head CT 03/06/16 1552 Signed Impressions: Service Date/Time: Sunday, March 06, 2016 16:22 - CONCLUSION: Stable symmetric moderate ventriculomegaly Yuval Chavarria MD Objective Remarks GENERAL: Well-developed well-nourished. In no acute distress. Sitting up eating lunch. SKIN: Warm and dry. No lesions noted. HEENT: Normocephalic. Pupils equal and round. Mucous membranes pink and moist. CARDIOVASCULAR: Regular rate and rhythm. No murmur appreciated. RESPIRATORY: No accessory muscle use. Clear to auscultation. Breath sounds equal bilaterally. GASTROINTESTINAL: Abdomen soft, non-tender, nondistended. Bowel sounds x4. MUSCULOSKELETAL: No obvious deformities. No clubbing or cyanosis. No edema. NEUROLOGICAL: Awake and alert. No focal neurological deficits. Moves upper and lower extremities spontaneously. Normal speech. PSYCHIATRIC: Pleasantly confused mood and affect; insight and judgment limited. Procedures none A/P Problem List: (1) Encephalopathy ICD Code: G93.40 Status: Acute (2) Malnutrition ICD Code: E46 Status: Chronic (3) Leukocytosis ICD Code: D72.829 Status: Resolved (4) COPD (chronic obstructive pulmonary disease) ICD Code: J44.9 Status: Chronic Assessment and Plan 60-year-old male with a history of asthma, schizoaffective disorder, COPD presented to the ED with altered mental status from his [facility] who refused to take him back. [facility] reporting increasing confusion despite lactulose use. Hepatic Encephalopathy: Head CT images reviewed, unremarkable. Ammonia level on 03/05/16 was 68, on lactulose at [facility]. Presented back to ED on 03/06 with increasing confusion, Ammonia level 16. Improving- appears at his baseline. Has not been on lactulose since admission, ammonia level <10, will not continue lactulose at this time. Continue fall precautions. PT consulted, recommends rehab, case management assisting. Leukocytosis: resolved. UA negative. Malnutrition: evidenced by temporal wasting and low BMI 18. Consulted slag expander , started patient on Regular diet with Ensure Enlive on all meal trays. COPD: chronic, does not appear to be in exacerbation. Continue Spiriva and DuoNeb's q4h prn. Bipolar disorder: Continue home meds including [place] and Clozapine. [place] level in the therapeutic range. DVT prophylaxis: lovenox Discussed with case management, no change Discharge Planning Awaiting safe discharge plan, case management assisting. Brian Cedillo Mar 15, 2016 13:08
[2016-03-16] VITALS (7 sets, daily range): BP systolic 100–120; BP diastolic 57–59; PULSE 63–78; RESP 14–18; TEMP 95.6–97.6; O2SAT 94–100
[2016-03-16] MEDS: ENOXAPARIN SODIUM 40 MG/0.4 ML SYRINGE SQ SCH (08:39)
[2016-03-16] MEDS: SODIUM CHLORIDE 0.9% FLUSH 5 ML FLUSH FLUSH SCH ×2 (08:39→21:00)
[2016-03-16] MEDS: cloZAPine 100 MG TAB PO SCH ×2 (08:39→20:59)
[2016-03-16] MEDS: LITHIUM CARBONATE 300 MG CAP PO SCH ×2 (08:40→20:59)
--- NOTE | 2016-03-16 12:41 | HHI.PR ---
Subjective Remarks Follow-up for encephalopathy no overnight events, no change in mental status. Eating well. Objective Vitals Vital Signs Date Time Temp Pulse Resp B/P Pulse Ox O2 Delivery O2 Flow Rate FiO2 03/16/16 12:00 97.6 78 16 110/59 97 03/16/16 08:00 97.1 64 16 100/57 96 03/16/16 06:29 94 21 03/16/16 04:00 95.6 72 14 108/58 96 03/16/16 00:00 97.5 75 14 120/57 95 03/15/16 22:42 70 03/15/16 21:00 96.2 96 18 122/64 96 03/15/16 19:32 97.8 75 18 116/57 98 03/15/16 15:07 98.2 81 14 114/57 98 I/O 03/15/16 03/15/16 03/15/16 03/16/16 03/16/16 03/16/16 07:00 15:00 23:00 07:00 15:00 23:00 Intake Total 280 ml Balance 280 ml Intake Oral 280 ml # Voids 2 1 4 Objective Remarks GENERAL: Well-developed well-nourished. In no acute distress. Sitting up eating lunch. SKIN: Warm and dry. No lesions noted. HEENT: Normocephalic. Pupils equal and round. Mucous membranes pink and moist. CARDIOVASCULAR: Regular rate and rhythm. No murmur appreciated. RESPIRATORY: No accessory muscle use. Clear to auscultation. Breath sounds equal bilaterally. GASTROINTESTINAL: Abdomen soft, non-tender, nondistended. Bowel sounds x4., No asterixis MUSCULOSKELETAL: No obvious deformities. No clubbing or cyanosis. No edema. NEUROLOGICAL: Awake and alert. No focal neurological deficits. Moves upper and lower extremities spontaneously. Normal speech. Procedures none A/P Problem List: (1) Encephalopathy ICD Code: G93.40 Status: Acute (2) Malnutrition ICD Code: E46 Status: Chronic (3) Leukocytosis ICD Code: D72.829 Status: Resolved (4) COPD (chronic obstructive pulmonary disease) ICD Code: J44.9 Status: Chronic Assessment and Plan 60-year-old male with a history of asthma, schizoaffective disorder, COPD presented to the ED with altered mental status from his [facility] who refused to take him back. [facility] reporting increasing confusion despite lactulose use. Hepatic Encephalopathy: Head CT images reviewed, unremarkable. Ammonia level on 03/05/16 was 68, on lactulose at [facility]. Presented back to ED on 03/06 with increasing confusion, Ammonia level 16. Improving- appears at his baseline. Has not been on lactulose since admission, ammonia level <10, will not continue lactulose at this time. Continue fall precautions. PT consulted, recommends rehab, case management assisting. Leukocytosis: resolved. UA negative. Malnutrition: evidenced by temporal wasting and low BMI 18. Consulted clinical research manager , started patient on Regular diet with Ensure Enlive on all meal trays. COPD: chronic, does not appear to be in exacerbation. Continue Spiriva and DuoNeb's q4h prn. Bipolar disorder: Continue home meds including [place] and Clozapine. [place] level in the therapeutic range. DVT prophylaxis: lovenox 03/16/16 Seen today, no overnight events, no change in management. Placement pending. Discharge Planning Placement pending, telephonic case manager working. Natalie Beasley MD Mar 16, 2016 12:41
[2016-03-17] VITALS: BP 109/65; PULSE 63; RESP 18; TEMP 96.7; O2SAT 97
[2016-03-17 04:00] VITALS: BP 104/87; PULSE 68; RESP 18; TEMP 98; O2SAT 97
[2016-03-17 08:00] VITALS: BP 107/63; PULSE 64; RESP 18; TEMP 96.8; O2SAT 98
[2016-03-17] MEDS: TIOTROPIUM BROMIDE 18 MCG INH INH SCH ×2 (09:00→17:42)
[2016-03-17] MEDS: SODIUM CHLORIDE 0.9% FLUSH 5 ML FLUSH FLUSH SCH ×2 (09:00→21:00)
[2016-03-17] MEDS: cloZAPine 100 MG TAB PO SCH ×2 (10:19→21:50)
[2016-03-17] MEDS: LITHIUM CARBONATE 300 MG CAP PO SCH ×2 (10:19→21:50)
[2016-03-17] MEDS: ENOXAPARIN SODIUM 40 MG/0.4 ML SYRINGE SQ SCH (10:19)
--- NOTE | 2016-03-17 10:48 | HHI.PR ---
Subjective Remarks Follow up for encephalopathy. The patient is awake, alert, oriented to self only, states he is at [facility], does not know the city but states he is in [place], does not know the month/year. He has no medical complaints. Denies any headache, lightheadedness, dizziness, chest pain, shortness of breath or abdominal complaints. Spoke with RN, no acute concerns, patient is eating well, ate a full breakfast today. Vital signs reviewed, stable. Objective Vitals Vital Signs Date Time Temp Pulse Resp B/P Pulse Ox O2 Delivery O2 Flow Rate FiO2 03/17/16 08:00 96.8 64 18 107/63 98 03/17/16 04:00 98.0 68 18 104/87 97 03/17/16 00:00 96.7 63 18 109/65 97 03/16/16 20:00 97.0 63 18 109/57 100 03/16/16 16:00 96.6 72 18 105/57 99 03/16/16 12:00 97.6 78 16 110/59 97 I/O 03/16/16 03/16/16 03/16/16 03/17/16 03/17/16 03/17/16 07:00 15:00 23:00 07:00 15:00 23:00 Intake Total 280 ml Balance 280 ml Intake Oral 280 ml # Voids 4 5 # Bowel Movements 1 Imaging Last Impressions Head CT 03/06/16 1552 Signed Impressions: Service Date/Time: Sunday, March 06, 2016 16:22 - CONCLUSION: Stable symmetric moderate ventriculomegaly Yuval Chavarria MD Objective Remarks GENERAL: Well-developed thin male patient in [facility]. SKIN: Warm and dry. No rash. HEAD: Normocephalic. Atraumatic. Bitemporal wasting noted. NECK: Supple. Trachea midline. CARDIOVASCULAR: Regular rate and rhythm. S1, S2 noted. No murmur appreciated. RESPIRATORY: No accessory muscle use. Clear to auscultation. Breath sounds equal bilaterally. GASTROINTESTINAL: Scaphoid abdomen, soft, non-tender, nondistended. Normoactive bowel sounds x4. MUSCULOSKELETAL: No obvious deformities. Extremities without clubbing, cyanosis , or edema. NEUROLOGICAL: Awake and alert, oriented to self only. No obvious cranial nerve deficits. Motor grossly within normal limits. Moves all extremities spontaneously. Normal speech. PSYCHIATRIC: Pleasantly confused; insight and judgment limited. Procedures none Medications and IVs Current Medications Medications (Trade) Dose Ordered Sig/Sadaf Route Start Time Stop Time Status Last Admin (NS Flush) 2 ml UNSCH PRN IVF 03/06/16 16:00 (NS Flush) 2 ml UNSCH PRN FLUSH 03/06/16 19:45 (NS Flush) 2 ml BID FLUSH 03/06/16 21:00 03/16/16 08:39 (Narcan Inj) 0.4 mg UNSCH PRN IV 03/06/16 19:45 (Clozaril) 100 mg BID PO 03/06/16 21:00 03/17/16 10:19 ([place] Carbonate) 300 mg BID PO 03/06/16 21:00 03/17/16 10:19 (Lovenox Inj) 40 mg Q24H SQ 03/07/16 09:00 03/17/16 10:19 (Spiriva Inh) 18 mcg DAILY INH 03/08/16 09:00 03/15/16 08:22 Urinary Catheter: No Vascular Central Line Catheter: No A/P Problem List: (1) Encephalopathy ICD Code: G93.40 Status: Acute (2) Malnutrition ICD Code: E46 Status: Chronic (3) Leukocytosis ICD Code: D72.829 Status: Resolved (4) COPD (chronic obstructive pulmonary disease) ICD Code: J44.9 Status: Chronic Assessment and Plan 60-year-old male with a history of asthma, schizoaffective disorder, COPD presented to the ED with altered mental status from his [facility] who refused to take him back. [facility] reporting increasing confusion despite lactulose use. Hepatic Encephalopathy: Head CT images reviewed, unremarkable. Ammonia level on 03/05/16 was 68, on lactulose at [facility]. Presented back to ED on 03/06 with increasing confusion, Ammonia level 16. Improving- appears at his baseline. Has not been on lactulose since admission, ammonia level <10, will not continue lactulose at this time. Continue fall precautions. PT consulted, recommends rehab, case management assisting. Leukocytosis: resolved. UA negative. Malnutrition: evidenced by temporal wasting and low BMI 18. Consulted comic illustrator , continue on Regular diet with Ensure Enlive on all meal trays. COPD: chronic, does not appear to be in exacerbation. Continue Spiriva and DuoNeb's q4h prn. Bipolar disorder: Continue home meds including [place] and Clozapine. [place] level in the therapeutic range. DVT prophylaxis: lovenox Discharge Planning Awaiting SNF placement, case management assisting. Discussed with RN and Dr. Beasley. Roxie Aldrich PA-C Mar 17, 2016 10:48
[2016-03-17 12:00] VITALS: BP 119/85; RESP 20; TEMP 97.5; O2SAT 97
[2016-03-17 16:00] VITALS: BP 113/59; PULSE 75; RESP 17; TEMP 97.3; O2SAT 97
[2016-03-17 20:00] VITALS: BP 111/55; PULSE 75; RESP 20; TEMP 98; O2SAT 98
[2016-03-18] VITALS: BP 118/63; PULSE 82; RESP 18; TEMP 98; O2SAT 97
[2016-03-18 07:20] VITALS: BP 113/57; PULSE 91; RESP 18; TEMP 98; O2SAT 95
[2016-03-18 08:00] VITALS: BP 118/66; PULSE 64; RESP 18; TEMP 97.7; O2SAT 99
[2016-03-18] MEDS: SODIUM CHLORIDE 0.9% FLUSH 5 ML FLUSH FLUSH SCH ×2 (09:00→21:00)
[2016-03-18 12:00] VITALS: BP 97/47; PULSE 109; RESP 18; TEMP 97.3; O2SAT 97
[2016-03-18] MEDS: TIOTROPIUM BROMIDE 18 MCG INH INH SCH ×2 (13:06→13:12)
[2016-03-18] MEDS: cloZAPine 100 MG TAB PO SCH ×2 (13:09→22:50)
[2016-03-18] MEDS: ENOXAPARIN SODIUM 40 MG/0.4 ML SYRINGE SQ SCH (13:09)
[2016-03-18] MEDS: LITHIUM CARBONATE 300 MG CAP PO SCH ×2 (13:09→22:50)
--- NOTE | 2016-03-18 15:56 | HHI.PR ---
Subjective Remarks Follow for placement no overnight events, no complaints. Still encephalopathic. Cannot remember anything from the last few days. Objective Vitals Vital Signs Date Time Temp Pulse Resp B/P Pulse Ox O2 Delivery O2 Flow Rate FiO2 03/18/16 12:00 97.3 109 18 97/47 97 03/18/16 08:00 97.7 64 18 118/66 99 03/18/16 07:20 98.0 91 18 113/57 95 03/18/16 00:00 98.0 82 18 118/63 97 03/17/16 20:00 98.0 75 20 111/55 98 03/17/16 16:00 97.3 75 17 113/59 97 I/O 03/17/16 03/17/16 03/17/16 03/18/16 03/18/16 03/18/16 06:59 14:59 22:59 06:59 14:59 22:59 Intake Total 480 ml Balance 480 ml Intake Oral 480 ml IV Total 0 ml # Voids 5 4 1 8 # Bowel Movements 1 0 Objective Remarks GENERAL: Well-developed well-nourished. In no acute distress. Sitting up eating lunch. SKIN: Warm and dry. No lesions noted. HEENT: Normocephalic. Pupils equal and round. Mucous membranes pink and moist. CARDIOVASCULAR: Regular rate and rhythm. No murmur appreciated. RESPIRATORY: No accessory muscle use. Clear to auscultation. Breath sounds equal bilaterally. GASTROINTESTINAL: Abdomen soft, non-tender, nondistended. Bowel sounds x4., No asterixis MUSCULOSKELETAL: No obvious deformities. No clubbing or cyanosis. No edema. NEUROLOGICAL: Awake and alert. No focal neurological deficits. Moves upper and lower extremities spontaneously. Normal speech. Procedures none A/P Problem List: (1) Encephalopathy ICD Code: G93.40 Status: Acute (2) Malnutrition ICD Code: E46 Status: Chronic (3) Leukocytosis ICD Code: D72.829 Status: Resolved (4) COPD (chronic obstructive pulmonary disease) ICD Code: J44.9 Status: Chronic Assessment and Plan 60-year-old male with a history of asthma, schizoaffective disorder, COPD presented to the ED with altered mental status from his [facility] who refused to take him back. [facility] reporting increasing confusion despite lactulose use. Hepatic Encephalopathy: Head CT images reviewed, unremarkable. Ammonia level on 03/05/16 was 68, on lactulose at [facility]. Presented back to ED on 03/06 with increasing confusion, Ammonia level 16. Improving- appears at his baseline. Has not been on lactulose since admission, ammonia level <10, will not continue lactulose at this time. Continue fall precautions. PT consulted, recommends rehab, case management assisting. Leukocytosis: resolved. UA negative. Malnutrition: evidenced by temporal wasting and low BMI 18. Consulted head mixer , continue on Regular diet with Ensure Enlive on all meal trays. COPD: chronic, does not appear to be in exacerbation. Continue Spiriva and DuoNeb's q4h prn. Bipolar disorder: Continue home meds including [place] and Clozapine. [place] level in the therapeutic range. DVT prophylaxis: lovenox 03/18/16 No change in mental status, no overnight events, no change in management. Discharge Planning Placement pending, mental health case manager working. Natalie Beasley MD Mar 18, 2016 15:56
[2016-03-18 16:00] VITALS: BP 109/60; PULSE 74; RESP 18; TEMP 96.6; O2SAT 96
[2016-03-18 20:00] VITALS: BP 100/58; PULSE 76; RESP 20; TEMP 97.7; O2SAT 95
[2016-03-19] VITALS: BP 102/57; PULSE 69; RESP 18; TEMP 96.7; O2SAT 95
[2016-03-19 07:14] VITALS: BP 103/57; PULSE 60; RESP 20; TEMP 96.9; O2SAT 97
[2016-03-19 08:00] VITALS: BP 116/59; PULSE 63; RESP 16; TEMP 95.7; O2SAT 96
[2016-03-19] MEDS: TIOTROPIUM BROMIDE 18 MCG INH INH SCH (09:00)
[2016-03-19] MEDS: SODIUM CHLORIDE 0.9% FLUSH 5 ML FLUSH FLUSH SCH ×2 (09:00→21:00)
[2016-03-19] MEDS: ENOXAPARIN SODIUM 40 MG/0.4 ML SYRINGE SQ SCH (09:07)
[2016-03-19] MEDS: LITHIUM CARBONATE 300 MG CAP PO SCH ×2 (09:07→22:32)
[2016-03-19] MEDS: cloZAPine 100 MG TAB PO SCH ×2 (09:07→22:32)
[2016-03-19 12:00] VITALS: BP 95/51; PULSE 75; RESP 16; TEMP 96.1; O2SAT 94
--- NOTE | 2016-03-19 14:35 | HHI.PR ---
Subjective Remarks Follow-up for encephalopathy. The patient has no acute complaints today. He's been eating well. Having normal bowel movements. Objective Vitals Vital Signs Date Time Temp Pulse Resp B/P Pulse Ox O2 Delivery O2 Flow Rate FiO2 03/19/16 12:00 96.1 75 16 95/51 94 03/19/16 08:00 95.7 63 16 116/59 96 03/19/16 07:14 96.9 60 20 103/57 97 03/19/16 00:00 96.7 69 18 102/57 95 03/18/16 20:00 97.7 76 20 100/58 95 03/18/16 16:00 96.6 74 18 109/60 96 I/O 03/18/16 03/18/16 03/18/16 03/19/16 03/19/16 03/19/16 07:00 15:00 23:00 07:00 15:00 23:00 Intake Total 600 ml 720 ml 390 ml 600 ml Output Total 600 ml Balance 600 ml 720 ml 390 ml 0 ml Intake Oral 600 ml 720 ml 390 ml 600 ml Output Urine Total 600 ml # Voids 10 2 1 4 # Bowel Movements 1 1 0 Objective Remarks GENERAL: Well-developed well-nourished. In no acute distress. SKIN: Warm and dry. No lesions noted. HEENT: Normocephalic. Pupils equal and round. Mucous membranes pink and moist. CARDIOVASCULAR: Regular rate and rhythm. No murmur appreciated. RESPIRATORY: No accessory muscle use. Clear to auscultation. Breath sounds equal bilaterally. GASTROINTESTINAL: Abdomen soft, non-tender, nondistended. Bowel sounds x4. MUSCULOSKELETAL: No obvious deformities. No clubbing or cyanosis. No edema. NEUROLOGICAL: Awake and alert. No focal neurological deficits. Moves upper and lower extremities spontaneously. Normal speech. PSYCHIATRIC: Pleasantly confused mood and affect; insight and judgment limited. Procedures none A/P Problem List: (1) Encephalopathy ICD Code: G93.40 Status: Acute (2) Malnutrition ICD Code: E46 Status: Chronic (3) Leukocytosis ICD Code: D72.829 Status: Resolved (4) COPD (chronic obstructive pulmonary disease) ICD Code: J44.9 Status: Chronic Assessment and Plan 60-year-old male with a history of asthma, schizoaffective disorder, COPD presented to the ED with altered mental status from his [facility] who refused to take him back. [facility] reporting increasing confusion despite lactulose use. Hepatic Encephalopathy: Head CT images reviewed, unremarkable. Ammonia level on 03/05/16 was 68, on lactulose at [facility]. Presented back to ED on 03/06 with increasing confusion, Ammonia level 16. Improving- appears at his baseline. Has not been on lactulose since admission, ammonia level <10, will not continue lactulose at this time. Continue fall precautions. PT consulted, recommends rehab, case management assisting. Leukocytosis: resolved. UA negative. Malnutrition: evidenced by temporal wasting and low BMI 18. Consulted subway train driver , started patient on Regular diet with Ensure Enlive on all meal trays. COPD: chronic, does not appear to be in exacerbation. Continue Spiriva and DuoNeb's q4h prn. Bipolar disorder: Continue home meds including [place] and Clozapine. [place] level in the therapeutic range. DVT prophylaxis: lovenox 03/19 No change in management Discharge Planning Awaiting safe discharge plan, case management assisting. Brian Cedillo Mar 19, 2016 14:34 Natalie Beasley MD Mar 20, 2016 17:13
[2016-03-19 16:00] VITALS: BP 102/55; PULSE 71; RESP 22; TEMP 99.3; O2SAT 95
[2016-03-19 20:33] VITALS: BP 101/58; PULSE 71; RESP 20; TEMP 97.4; O2SAT 95
[2016-03-20 00:43] VITALS: BP 120/64; PULSE 96; RESP 20; TEMP 96.5; O2SAT 93
[2016-03-20 04:28] VITALS: BP 121/60; PULSE 68; RESP 19; TEMP 96.4; O2SAT 97
[2016-03-20 08:00] VITALS: BP 112/63; PULSE 65; RESP 20; TEMP 97; O2SAT 95
[2016-03-20] MEDS: SODIUM CHLORIDE 0.9% FLUSH 5 ML FLUSH FLUSH SCH ×2 (09:00→21:00)
[2016-03-20] MEDS: cloZAPine 100 MG TAB PO SCH ×2 (09:14→21:13)
[2016-03-20] MEDS: ENOXAPARIN SODIUM 40 MG/0.4 ML SYRINGE SQ SCH (09:14)
[2016-03-20] MEDS: LITHIUM CARBONATE 300 MG CAP PO SCH ×2 (09:14→21:13)
[2016-03-20] MEDS: TIOTROPIUM BROMIDE 18 MCG INH INH SCH (09:15)
[2016-03-20 12:00] VITALS: BP 113/65; PULSE 65; RESP 20; TEMP 96.8; O2SAT 99
[2016-03-20 16:00] VITALS: BP 98/55; PULSE 69; RESP 20; TEMP 97.6; O2SAT 95
--- NOTE | 2016-03-20 17:14 | HHI.PR ---
Subjective Remarks Follow up for placement No change in mental status, no overnight events. No complaints. Objective Vitals Vital Signs Date Time Temp Pulse Resp B/P Pulse Ox O2 Delivery O2 Flow Rate FiO2 03/20/16 12:00 96.8 65 20 113/65 99 03/20/16 08:00 97.0 65 20 112/63 95 03/20/16 04:28 96.4 68 19 121/60 97 03/20/16 00:43 96.5 96 20 120/64 93 03/19/16 20:33 97.4 71 20 101/58 95 I/O 03/19/16 03/19/16 03/19/16 03/20/16 03/20/16 03/20/16 07:00 15:00 23:00 07:00 15:00 23:00 Intake Total 390 ml 600 ml 420 ml Output Total 600 ml Balance 390 ml 0 ml 420 ml Intake Oral 390 ml 600 ml 420 ml Output Urine Total 600 ml # Voids 1 4 2 1 4 # Bowel Movements 0 Objective Remarks Vital signs reviewed Not in distress Eating lunch Mental status unchanged, moves extremities, not oriented, awake and alert. Procedures none A/P Problem List: (1) Encephalopathy ICD Code: G93.40 Status: Acute (2) Malnutrition ICD Code: E46 Status: Chronic (3) Leukocytosis ICD Code: D72.829 Status: Resolved (4) COPD (chronic obstructive pulmonary disease) ICD Code: J44.9 Status: Chronic Assessment and Plan 60-year-old male with a history of asthma, schizoaffective disorder, COPD presented to the ED with altered mental status from his [facility] who refused to take him back. [facility] reporting increasing confusion despite lactulose use. Hepatic Encephalopathy: Head CT images reviewed, unremarkable. Ammonia level on 03/05/16 was 68, on lactulose at [facility]. Presented back to ED on 03/06 with increasing confusion, Ammonia level 16. Improving- appears at his baseline. Has not been on lactulose since admission, ammonia level <10, will not continue lactulose at this time. Continue fall precautions. PT consulted, recommends rehab, case management assisting. Leukocytosis: resolved. UA negative. Malnutrition: evidenced by temporal wasting and low BMI 18. Consulted magento web developer , continue on Regular diet with Ensure Enlive on all meal trays. COPD: chronic, does not appear to be in exacerbation. Continue Spiriva and DuoNeb's q4h prn. Bipolar disorder: Continue home meds including [place] and Clozapine. [place] level in the therapeutic range. DVT prophylaxis: lovenox Seen today 11/18/15 No change in management, awaiting placement. Discharge Planning Placement pending, caser shoe parts working. Natalie Beasley MD Mar 20, 2016 17:14
[2016-03-20 20:12] VITALS: BP 101/57; PULSE 74; RESP 18; TEMP 97.9; O2SAT 96
[2016-03-21 00:03] VITALS: BP 105/59; PULSE 68; RESP 17; TEMP 98.1; O2SAT 96
[2016-03-21 05:13] VITALS: BP 104/55; PULSE 72; RESP 18; TEMP 97.6; O2SAT 97
[2016-03-21 08:31] VITALS: BP 105/59; PULSE 84; RESP 16; TEMP 96.7; O2SAT 97
[2016-03-21] MEDS: LITHIUM CARBONATE 300 MG CAP PO SCH ×2 (09:23→21:51)
[2016-03-21] MEDS: SODIUM CHLORIDE 0.9% FLUSH 5 ML FLUSH FLUSH SCH ×2 (09:23→21:51)
[2016-03-21] MEDS: cloZAPine 100 MG TAB PO SCH ×2 (09:23→21:51)
[2016-03-21] MEDS: TIOTROPIUM BROMIDE 18 MCG INH INH SCH (09:23)
[2016-03-21] MEDS: ENOXAPARIN SODIUM 40 MG/0.4 ML SYRINGE SQ SCH (09:23)
[2016-03-21 13:18] VITALS: BP 92/52; PULSE 78; RESP 18; TEMP 96.6; O2SAT 97
--- NOTE | 2016-03-21 14:22 | HHI.PR ---
Subjective Remarks Follow up for placement. The patient is awake, alert, oriented to person and [facility] today. He has no medical complaints. Vital signs stable. Tolerating oral intake. Objective Vitals Vital Signs Date Time Temp Pulse Resp B/P Pulse Ox O2 Delivery O2 Flow Rate FiO2 03/21/16 13:18 96.6 78 18 92/52 97 03/21/16 08:31 96.7 84 16 105/59 97 03/21/16 05:13 97.6 72 18 104/55 97 03/21/16 00:03 98.1 68 17 105/59 96 03/20/16 20:12 97.9 74 18 101/57 96 03/20/16 16:00 97.6 69 20 98/55 95 I/O 03/20/16 03/20/16 03/20/16 03/21/16 03/21/16 03/21/16 07:00 15:00 23:00 07:00 15:00 23:00 Intake Total 420 ml 840 ml 240 ml Balance 420 ml 840 ml 240 ml Intake Oral 420 ml 840 ml 240 ml # Voids 1 7 2 Imaging Last Impressions Head CT 03/06/16 1552 Signed Impressions: Service Date/Time: Sunday, March 06, 2016 16:22 - CONCLUSION: Stable symmetric moderate ventriculomegaly Yuval Chavarria MD Objective Remarks GENERAL: Well-developed thin male patient in [facility]. Vital signs reviewed, stable. SKIN: Warm and dry. No rash. HEAD: Normocephalic. Atraumatic. Bitemporal wasting noted. NECK: Supple. Trachea midline. CARDIOVASCULAR: Regular rate and rhythm. S1, S2 noted. No murmur appreciated. RESPIRATORY: No accessory muscle use. Clear to auscultation. Breath sounds equal bilaterally. GASTROINTESTINAL: Scaphoid abdomen, soft, non-tender, nondistended. Normoactive bowel sounds x4. MUSCULOSKELETAL: No obvious deformities. Extremities without clubbing, cyanosis , or edema. NEUROLOGICAL: Awake and alert, oriented to self only. No obvious cranial nerve deficits. Motor grossly within normal limits. Moves all extremities spontaneously. Normal speech. PSYCHIATRIC: Pleasantly confused; insight and judgment limited. Procedures none Medications and IVs Current Medications Medications (Trade) Dose Ordered Sig/Sadaf Route Start Time Stop Time Status Last Admin (NS Flush) 2 ml UNSCH PRN IVF 03/06/16 16:00 (NS Flush) 2 ml UNSCH PRN FLUSH 03/06/16 19:45 (NS Flush) 2 ml BID FLUSH 03/06/16 21:00 03/21/16 09:23 (Narcan Inj) 0.4 mg UNSCH PRN IV 03/06/16 19:45 (Clozaril) 100 mg BID PO 03/06/16 21:00 03/21/16 09:23 ([address] Carbonate) 300 mg BID PO 03/06/16 21:00 03/21/16 09:23 (Lovenox Inj) 40 mg Q24H SQ 03/07/16 09:00 03/21/16 09:23 (Spiriva Inh) 18 mcg DAILY INH 03/08/16 09:00 03/21/16 09:23 Urinary Catheter: No Vascular Central Line Catheter: No A/P Problem List: (1) Encephalopathy ICD Code: G93.40 Status: Acute (2) Malnutrition ICD Code: E46 Status: Chronic (3) Leukocytosis ICD Code: D72.829 Status: Resolved (4) COPD (chronic obstructive pulmonary disease) ICD Code: J44.9 Status: Chronic Assessment and Plan 60-year-old male with a history of asthma, schizoaffective disorder, COPD presented to the ED with altered mental status from his [facility] who refused to take him back. [facility] reporting increasing confusion despite lactulose use. Hepatic Encephalopathy: Head CT images reviewed, unremarkable. Ammonia level on 03/05/16 was 68, on lactulose at [facility]. Presented back to ED on 03/06 with increasing confusion, Ammonia level 16. Improving- appears at his baseline. Has not been on lactulose since admission, ammonia level <10, will not continue lactulose at this time. Continue fall precautions. PT consulted, recommends rehab, case management assisting. Leukocytosis: resolved. UA negative. Malnutrition: evidenced by temporal wasting and low BMI 18. Consulted coding spec , continue on Regular diet with Ensure Enlive on all meal trays. COPD: chronic, does not appear to be in exacerbation. Continue Spiriva and DuoNeb's q4h prn. Bipolar disorder: Continue home meds including [address] and Clozapine. [address] level in the therapeutic range. DVT prophylaxis: lovenox Discharge Planning Awaiting SNF placement, case management assisting. Discussed with Dr. Cortes. Roxie Aldrich PA-C Mar 21, 2016 14:22
[2016-03-21 16:02] VITALS: BP 98/49; PULSE 66; RESP 18; TEMP 97.1; O2SAT 98
[2016-03-21 20:14] VITALS: BP 105/65; PULSE 74; RESP 19; TEMP 96.7; O2SAT 97
[2016-03-22 00:05] VITALS: BP 117/47; PULSE 77; RESP 19; TEMP 96.8; O2SAT 94
[2016-03-22 05:22] VITALS: BP 102/60; PULSE 69; RESP 18; TEMP 96.2; O2SAT 98
[2016-03-22 08:00] VITALS: BP 112/61; PULSE 67; RESP 16; TEMP 95.6; O2SAT 97
[2016-03-22] MEDS: cloZAPine 100 MG TAB PO SCH ×2 (08:39→20:30)
[2016-03-22] MEDS: LITHIUM CARBONATE 300 MG CAP PO SCH ×2 (08:39→20:30)
[2016-03-22] MEDS: TIOTROPIUM BROMIDE 18 MCG INH INH SCH (08:39)
[2016-03-22] MEDS: ENOXAPARIN SODIUM 40 MG/0.4 ML SYRINGE SQ SCH (08:39)
[2016-03-22] MEDS: SODIUM CHLORIDE 0.9% FLUSH 5 ML FLUSH FLUSH SCH ×2 (08:39→20:30)
[2016-03-22 12:00] VITALS: BP 105/52; PULSE 71; RESP 16; TEMP 96.8; O2SAT 96
[2016-03-22 16:00] VITALS: BP 106/62; PULSE 65; RESP 16; TEMP 98.1; O2SAT 97
--- NOTE | 2016-03-22 18:06 | HHI.PR ---
Subjective Remarks Pt wants stronger coffee. No other complaints. Objective Vitals Vital Signs Date Time Temp Pulse Resp B/P Pulse Ox O2 Delivery O2 Flow Rate FiO2 03/22/16 12:00 96.8 71 16 105/52 96 03/22/16 08:00 95.6 67 16 112/61 97 03/22/16 05:22 96.2 69 18 102/60 98 03/22/16 00:05 96.8 77 19 117/47 94 03/21/16 20:14 96.7 74 19 105/65 97 I/O 03/21/16 03/21/16 03/21/16 03/22/16 03/22/16 03/22/16 07:00 15:00 23:00 07:00 15:00 23:00 Intake Total 240 ml 360 ml 480 ml 960 ml Balance 240 ml 360 ml 480 ml 960 ml Intake Oral 240 ml 360 ml 480 ml 960 ml # Voids 2 2 2 Objective Remarks GENERAL: Well-nourished, well-developed lean CM patient. SKIN: Warm and dry. HEAD: Normocephalic. EYES: No scleral icterus. No injection or drainage. NECK: Supple, trachea midline. No JVD or lymphadenopathy. CARDIOVASCULAR: Regular rate and rhythm without murmurs, gallops, or rubs. RESPIRATORY: Breath sounds equal bilaterally. No accessory muscle use. GASTROINTESTINAL: Abdomen soft, non-tender, nondistended. EXTREMITIES: No cyanosis, or edema. NEUROLOGICAL: Awake, alert, and oriented x 3. Non-focal. Flat affect. gait steady. Procedures none A/P Problem List: (1) Encephalopathy ICD Code: G93.40 Status: Acute (2) Malnutrition ICD Code: E46 Status: Chronic (3) Leukocytosis ICD Code: D72.829 Status: Resolved (4) COPD (chronic obstructive pulmonary disease) ICD Code: J44.9 Status: Chronic Assessment and Plan 60-year-old male with a history of asthma, schizoaffective disorder, COPD presented to the ED with altered mental status from his [facility] who refused to take him back. [facility] reporting increasing confusion despite lactulose use. Encephalopathy (resolved): Head CT images reviewed, unremarkable. Ammonia level on 03/05/16 was 68, on lactulose at [facility]. Presented back to ED on 03/06 with increasing confusion, Ammonia level 16. Improving- appears at his baseline. Has not been on lactulose since admission, ammonia level <10, thus lactulose DCed - no history of liver cirrhosis. He has been calm and cooperative throughout hospitalization. Leukocytosis: resolved. UA negative. Malnutrition: evidenced by temporal wasting and low BMI 18. Consulted clinical data coordinator , continue on Regular diet with Ensure Enlive on all meal trays. COPD: chronic, does not appear to be in exacerbation. Continue Spiriva and DuoNeb's q4h prn. Bipolar disorder: Continue home meds including [place] and Clozapine. [place] level in the therapeutic range. DVT prophylaxis: lovenox Discharge Planning Needs ASSISTED. Bette Cortes MD Mar 22, 2016 18:06
[2016-03-22 20:57] VITALS: BP 111/62; PULSE 79; RESP 18; TEMP 97.2; O2SAT 97
[2016-03-23] VITALS (7 sets, daily range): BP systolic 99–115; BP diastolic 49–70; PULSE 60–92; RESP 16–20; TEMP 96.5–97.9; O2SAT 77–99
[2016-03-23] MEDS: SODIUM CHLORIDE 0.9% FLUSH 5 ML FLUSH FLUSH SCH ×2 (09:03→20:49)
[2016-03-23] MEDS: ENOXAPARIN SODIUM 40 MG/0.4 ML SYRINGE SQ SCH (09:04)
[2016-03-23] MEDS: LITHIUM CARBONATE 300 MG CAP PO SCH ×2 (09:04→20:48)
[2016-03-23] MEDS: cloZAPine 100 MG TAB PO SCH ×2 (09:04→20:48)
[2016-03-23] MEDS: TIOTROPIUM BROMIDE 18 MCG INH INH SCH (09:26)
--- NOTE | 2016-03-23 14:46 | HHI.PR ---
Subjective Remarks No concerns. eating well. Objective Vitals Vital Signs Date Time Temp Pulse Resp B/P Pulse Ox O2 Delivery O2 Flow Rate FiO2 03/23/16 12:00 96.5 70 18 112/61 97 03/23/16 08:00 96.8 78 18 102/61 97 03/23/16 04:26 97.6 60 20 99/54 97 03/23/16 00:48 96.8 62 20 102/56 99 03/22/16 20:57 97.2 79 18 111/62 97 03/22/16 16:00 98.1 65 16 106/62 97 I/O 03/22/16 03/22/16 03/22/16 03/23/16 03/23/16 03/23/16 06:59 14:59 22:59 06:59 14:59 22:59 Intake Total 480 ml 960 ml 560 ml Balance 480 ml 960 ml 560 ml Intake Oral 480 ml 960 ml 560 ml # Voids 2 2 2 # Bowel Movements 0 0 Objective Remarks GENERAL: Well-nourished, well-developed lean CM patient. SKIN: Warm and dry. HEAD: Normocephalic. EYES: No scleral icterus. No injection or drainage. NECK: Supple, trachea midline. No JVD or lymphadenopathy. CARDIOVASCULAR: Regular rate and rhythm without murmurs, gallops, or rubs. RESPIRATORY: Breath sounds equal bilaterally. No accessory muscle use. GASTROINTESTINAL: Abdomen soft, non-tender, nondistended. EXTREMITIES: No cyanosis, or edema. NEUROLOGICAL: Awake, alert, and oriented x 3. Non-focal. Flat affect. gait steady. Procedures none A/P Problem List: (1) Encephalopathy ICD Code: G93.40 Status: Acute (2) Malnutrition ICD Code: E46 Status: Chronic (3) Leukocytosis ICD Code: D72.829 Status: Resolved (4) COPD (chronic obstructive pulmonary disease) ICD Code: J44.9 Status: Chronic Assessment and Plan 60-year-old male with a history of asthma, schizoaffective disorder, COPD presented to the ED with altered mental status from his [facility] who refused to take him back. [facility] reporting increasing confusion despite lactulose use. Encephalopathy (resolved): Head CT images reviewed, unremarkable. Ammonia level on 03/05/16 was 68, on lactulose at [facility]. Presented back to ED on 03/06 with increasing confusion, Ammonia level 16. Improving- appears at his baseline. Has not been on lactulose since admission, ammonia level <10, thus lactulose DCed - no history of liver cirrhosis. He has been calm and cooperative throughout hospitalization. Leukocytosis: resolved. UA negative. Malnutrition: evidenced by temporal wasting and low BMI 18. Consulted ice guard inspector , continue on Regular diet with Ensure Enlive on all meal trays. COPD: chronic, does not appear to be in exacerbation. Continue Spiriva and DuoNeb's q4h prn. Bipolar disorder: Continue home meds including [place] and Clozapine. [place] level in the therapeutic range. DVT prophylaxis: lovenox Discharge Planning Needs [facility]. Bette Cortes MD Mar 23, 2016 14:46
[2016-03-24 04:00] VITALS: BP 108/57; PULSE 71; RESP 18; TEMP 98.8; O2SAT 94
[2016-03-24 08:00] VITALS: BP 106/57; PULSE 94; RESP 16; TEMP 95.1; O2SAT 95
[2016-03-24] MEDS: ENOXAPARIN SODIUM 40 MG/0.4 ML SYRINGE SQ SCH (08:04)
[2016-03-24] MEDS: LITHIUM CARBONATE 300 MG CAP PO SCH ×2 (08:04→20:14)
[2016-03-24] MEDS: cloZAPine 100 MG TAB PO SCH ×2 (08:04→20:14)
[2016-03-24] MEDS: TIOTROPIUM BROMIDE 18 MCG INH INH SCH (08:05)
[2016-03-24] MEDS: SODIUM CHLORIDE 0.9% FLUSH 5 ML FLUSH FLUSH SCH ×2 (08:09→20:14)
--- NOTE | 2016-03-24 11:51 | HHI.PR ---
Subjective Remarks Awaiting placement. Patient states he's been eating well. He denies any cough , pain, fevers. No concerns. Objective Vitals Vital Signs Date Time Temp Pulse Resp B/P Pulse Ox O2 Delivery O2 Flow Rate FiO2 03/24/16 08:00 95.1 94 16 106/57 95 03/24/16 04:00 98.8 71 18 108/57 94 03/23/16 20:00 97.9 77 16 109/70 97 03/23/16 16:00 96.8 92 18 115/49 95 03/23/16 12:00 96.5 70 18 112/61 97 I/O 03/23/16 03/23/16 03/23/16 03/24/16 03/24/16 03/24/16 07:00 15:00 23:00 07:00 15:00 23:00 Intake Total 560 ml 720 ml 240 ml 320 ml Balance 560 ml 720 ml 240 ml 320 ml Intake Oral 560 ml 720 ml 240 ml 320 ml # Voids 2 2 3 3 # Bowel Movements 0 Objective Remarks GENERAL: Well-developed well-nourished. In no acute distress. SKIN: Warm and dry. No lesions noted. HEENT: Normocephalic. Pupils equal and round. Mucous membranes pink and moist. CARDIOVASCULAR: Regular rate and rhythm. No murmur appreciated. RESPIRATORY: No accessory muscle use. Clear to auscultation. Breath sounds equal bilaterally. GASTROINTESTINAL: Abdomen soft, non-tender, nondistended. Bowel sounds x4. MUSCULOSKELETAL: No obvious deformities. No clubbing or cyanosis. No edema. NEUROLOGICAL: Awake and alert. No focal neurological deficits. Moves upper and lower extremities spontaneously. Normal speech. PSYCHIATRIC: Pleasantly confused mood and affect; insight and judgment limited. Procedures none A/P Problem List: (1) Encephalopathy ICD Code: G93.40 Status: Acute (2) Malnutrition ICD Code: E46 Status: Chronic (3) Leukocytosis ICD Code: D72.829 Status: Resolved (4) COPD (chronic obstructive pulmonary disease) ICD Code: J44.9 Status: Chronic Assessment and Plan 60-year-old male with a history of asthma, schizoaffective disorder, COPD presented to the ED with altered mental status from his [facility] who refused to take him back. [facility] reporting increasing confusion despite lactulose use. Encephalopathy: Resolved. Head CT images reviewed, unremarkable. Ammonia level on 03/05/16 was 68, on lactulose at [facility]. Presented back to ED on 03/06 with increasing confusion, Ammonia level 16. Improving- appears at his baseline. Has not been on lactulose since admission, ammonia level <10, thus lactulose DCed - no history of liver cirrhosis. He has been calm and cooperative throughout hospitalization. Leukocytosis: resolved. UA negative. Malnutrition: evidenced by temporal wasting and low BMI 18. Consulted conditioning machine operator , started patient on Regular diet with Ensure Enlive on all meal trays. COPD: chronic, does not appear to be in exacerbation. Continue Spiriva and DuoNeb's q4h prn. Bipolar disorder: Continue home meds including [place] and Clozapine. [place] level in the therapeutic range. DVT prophylaxis: lovenox 03/24 no change Written by Brian Cedillo, acting as scribe for Dr. Cortes on 03/24/16 at 11:51. The documentation accurately reflects the work performed [id number] by Dr. Cortes on 03/24/16 at 11:51. Discharge Planning Awaiting safe discharge plan, case management assisting. Attending Statement The documentation accurately reflects the work performed [id number] by wa on 03/24/16 at 11:51. Brian Cedillo Mar 24, 2016 11:51 Bette Cortes MD Mar 24, 2016 14:40
[2016-03-24 12:00] VITALS: BP 99/51; PULSE 68; RESP 16; TEMP 96.4; O2SAT 95
[2016-03-24 16:00] VITALS: BP 108/61; PULSE 83; RESP 16; TEMP 96.7; O2SAT 99
[2016-03-24 20:00] VITALS: BP 113/63; PULSE 82; RESP 14; TEMP 95.1; O2SAT 92
[2016-03-25] VITALS: BP 136/75; PULSE 76; RESP 14; TEMP 98.7; O2SAT 98
[2016-03-25 04:00] VITALS: BP 111/60; PULSE 72; RESP 12; TEMP 97.1; O2SAT 99
[2016-03-25 08:00] VITALS: BP 121/61; PULSE 71; RESP 20; TEMP 96.6; O2SAT 93
[2016-03-25] MEDS: SODIUM CHLORIDE 0.9% FLUSH 5 ML FLUSH FLUSH SCH ×3 (09:00→22:23)
[2016-03-25] MEDS: cloZAPine 100 MG TAB PO SCH ×2 (09:17→22:22)
[2016-03-25] MEDS: ENOXAPARIN SODIUM 40 MG/0.4 ML SYRINGE SQ SCH (09:17)
[2016-03-25] MEDS: LITHIUM CARBONATE 300 MG CAP PO SCH ×2 (09:17→22:22)
[2016-03-25] MEDS: TIOTROPIUM BROMIDE 18 MCG INH INH SCH (09:17)
[2016-03-25 12:00] VITALS: BP 114/59; PULSE 72; RESP 20; TEMP 96; O2SAT 96
--- NOTE | 2016-03-25 15:45 | HHI.PR ---
Subjective Remarks Follow-up for failure to thrive. The patient is a bit sleepy today and is not very talkative. He denies any complaint or concerns. Objective Vitals Vital Signs Date Time Temp Pulse Resp B/P Pulse Ox O2 Delivery O2 Flow Rate FiO2 03/25/16 12:00 96.0 72 20 114/59 96 03/25/16 08:00 96.6 71 20 121/61 93 03/25/16 04:00 97.1 72 12 111/60 99 03/25/16 00:00 98.7 76 14 136/75 98 03/24/16 20:00 95.1 82 14 113/63 92 03/24/16 16:00 96.7 83 16 108/61 99 I/O 03/24/16 03/24/16 03/24/16 03/25/16 03/25/16 03/25/16 06:59 14:59 22:59 06:59 14:59 22:59 Intake Total 320 ml 600 ml Balance 320 ml 600 ml Intake Oral 320 ml 600 ml # Voids 3 2 # Bowel Movements 1 Objective Remarks GENERAL: Well-developed well-nourished. In no acute distress. SKIN: Warm and dry. No lesions noted. HEENT: Normocephalic. Pupils equal and round. Mucous membranes pink and moist. CARDIOVASCULAR: Regular rate and rhythm. No murmur appreciated. RESPIRATORY: No accessory muscle use. Clear to auscultation. Breath sounds equal bilaterally. GASTROINTESTINAL: Abdomen soft, non-tender, nondistended. Bowel sounds x4. MUSCULOSKELETAL: No obvious deformities. No clubbing or cyanosis. No edema. NEUROLOGICAL: A bit sleepy today but awakens easily to voice. No focal neurological deficits. Moves upper and lower extremities spontaneously. Normal speech. PSYCHIATRIC: Pleasantly confused mood and affect; insight and judgment limited. Procedures none A/P Problem List: (1) Encephalopathy ICD Code: G93.40 Status: Acute (2) Malnutrition ICD Code: E46 Status: Chronic (3) Leukocytosis ICD Code: D72.829 Status: Resolved (4) COPD (chronic obstructive pulmonary disease) ICD Code: J44.9 Status: Chronic Assessment and Plan 60-year-old male with a history of asthma, schizoaffective disorder, COPD presented to the ED with altered mental status from his [facility] who refused to take him back. [facility] reporting increasing confusion despite lactulose use. Encephalopathy: Resolved. Head CT images reviewed, unremarkable. Ammonia level on 03/05/16 was 68, on lactulose at [facility]. Presented back to ED on 03/06 with increasing confusion, Ammonia level 16. Improving- appears at his baseline. Has not been on lactulose since admission, ammonia level <10, thus lactulose DCed - no history of liver cirrhosis. He has been calm and cooperative throughout hospitalization. Leukocytosis: resolved. UA negative. Malnutrition: evidenced by temporal wasting and low BMI 18. Consulted sales advisor , started patient on Regular diet with Ensure Enlive on all meal trays. PMI improving. COPD: chronic, does not appear to be in exacerbation. Continue Spiriva and DuoNeb's q4h prn. Bipolar disorder: Continue home meds including [place] and Clozapine. [place] level in the therapeutic range. DVT prophylaxis: lovenox 03/25 continue current management Written by Brian Cedillo, acting as scribe for Dr. Cortes on 03/25/16 at 15:46. Discharge Planning Awaiting safe discharge plan, case management assisting. Attending Statement The documentation accurately reflects the work performed [id number] by me on 03/25/16 at 15:46. Brian Cedillo Mar 25, 2016 15:45 Bette Cortes MD Mar 25, 2016 16:43
[2016-03-25 16:00] VITALS: BP 105/58; PULSE 64; RESP 20; TEMP 96.6; O2SAT 97
[2016-03-26] VITALS: BP 116/60; PULSE 66; RESP 18; TEMP 97; O2SAT 97
[2016-03-26 04:00] VITALS: BP 106/57; PULSE 72; RESP 18; TEMP 97.3; O2SAT 93
[2016-03-26] MEDS: ENOXAPARIN SODIUM 40 MG/0.4 ML SYRINGE SQ SCH (07:45)
[2016-03-26] MEDS: TIOTROPIUM BROMIDE 18 MCG INH INH SCH (07:45)
[2016-03-26] MEDS: cloZAPine 100 MG TAB PO SCH ×2 (07:45→20:55)
[2016-03-26] MEDS: LITHIUM CARBONATE 300 MG CAP PO SCH ×2 (07:46→20:56)
[2016-03-26 08:00] VITALS: BP 101/63; PULSE 94; RESP 20; TEMP 96.6; O2SAT 95
[2016-03-26] MEDS: SODIUM CHLORIDE 0.9% FLUSH 5 ML FLUSH FLUSH SCH ×2 (09:00→20:56)
[2016-03-26 12:00] VITALS: BP 110/68; PULSE 88; RESP 20; TEMP 98; O2SAT 98
--- NOTE | 2016-03-26 15:48 | HHI.PR ---
Subjective Remarks Follow-up failure to thrive. Consume meals 100%. Patient has no complaints. Discussed with RN Objective Vitals Vital Signs Date Time Temp Pulse Resp B/P Pulse Ox O2 Delivery O2 Flow Rate FiO2 03/26/16 12:00 98.0 88 20 110/68 98 03/26/16 08:00 96.6 94 20 101/63 95 03/26/16 04:00 97.3 72 18 106/57 93 03/26/16 00:00 97.0 66 18 116/60 97 03/25/16 16:00 96.6 64 20 105/58 97 I/O 03/25/16 03/25/16 03/25/16 03/26/16 03/26/16 03/26/16 07:00 15:00 23:00 07:00 15:00 23:00 Intake Total 600 ml 800 ml Balance 600 ml 800 ml Intake Oral 600 ml 800 ml # Voids 3 4 2 # Bowel Movements 1 Objective Remarks GENERAL: Well-developed well-nourished. In no acute distress. SKIN: Warm and dry. No lesions noted. HEENT: Normocephalic. Pupils equal and round. Mucous membranes pink and moist. CARDIOVASCULAR: Regular rate and rhythm. No murmur appreciated. RESPIRATORY: No accessory muscle use. Clear to auscultation. Breath sounds equal bilaterally. GASTROINTESTINAL: Abdomen soft, non-tender, nondistended. Bowel sounds x4. MUSCULOSKELETAL: No obvious deformities. No clubbing or cyanosis. No edema. NEUROLOGICAL: A bit sleepy today but awakens easily to voice. No focal neurological deficits. Moves upper and lower extremities spontaneously. Normal speech. PSYCHIATRIC: Pleasantly confused mood and affect; insight and judgment limited. Procedures none A/P Problem List: (1) Encephalopathy ICD Code: G93.40 Status: Acute (2) Malnutrition ICD Code: E46 Status: Chronic (3) Leukocytosis ICD Code: D72.829 Status: Resolved (4) COPD (chronic obstructive pulmonary disease) ICD Code: J44.9 Status: Chronic Assessment and Plan 60-year-old male with a history of asthma, schizoaffective disorder, COPD presented to the ED with altered mental status from his [facility] who refused to take him back. [facility] reporting increasing confusion despite lactulose use. Encephalopathy: Resolved. Head CT images reviewed, unremarkable. Ammonia level on 03/05/16 was 68, on lactulose at [facility]. Presented back to ED on 03/06 with increasing confusion, Ammonia level 16. Improving- appears at his baseline. Has not been on lactulose since admission, ammonia level <10, thus lactulose DCed - no history of liver cirrhosis. He has been calm and cooperative throughout hospitalization. Leukocytosis: resolved. UA negative. Malnutrition: evidenced by temporal wasting and low BMI 18. Consulted mammographer , started patient on Regular diet with Ensure Enlive on all meal trays. BMI improving. COPD: chronic, does not appear to be in exacerbation. Continue Spiriva and DuoNeb's q4h prn. Bipolar disorder: Continue home meds including [place] and Clozapine. [place] level in the therapeutic range. DVT prophylaxis: lovenox Discharge Planning Awaiting safe discharge plan, case management assisting. Ta Gallardo MD Mar 26, 2016 15:48
[2016-03-26 16:00] VITALS: BP 107/61; PULSE 86; RESP 18; TEMP 95.9; O2SAT 98
[2016-03-26 20:00] VITALS: BP 111/73; PULSE 73; RESP 18; TEMP 97.8; O2SAT 92
[2016-03-27] VITALS (8 sets, daily range): BP systolic 99–134; BP diastolic 56–74; PULSE 66–87; RESP 18–24; TEMP 96.7–98.3; O2SAT 93–98
[2016-03-27] MEDS: TIOTROPIUM BROMIDE 18 MCG INH INH SCH (08:40)
[2016-03-27] MEDS: SODIUM CHLORIDE 0.9% FLUSH 5 ML FLUSH FLUSH SCH ×2 (08:40→20:54)
[2016-03-27] MEDS: ENOXAPARIN SODIUM 40 MG/0.4 ML SYRINGE SQ SCH (08:41)
[2016-03-27] MEDS: cloZAPine 100 MG TAB PO SCH ×2 (08:41→20:54)
[2016-03-27] MEDS: LITHIUM CARBONATE 300 MG CAP PO SCH ×2 (08:42→20:54)
--- NOTE | 2016-03-27 14:19 | HHI.PR ---
Subjective Remarks F/u COPD. Denies SOB. Kuldeep RN Objective Vitals Vital Signs Date Time Temp Pulse Resp B/P Pulse Ox O2 Delivery O2 Flow Rate FiO2 03/27/16 12:00 96.7 87 24 99/56 96 03/27/16 08:38 95 03/27/16 08:00 96.8 76 20 123/72 98 03/27/16 04:00 96.7 74 18 134/70 96 03/27/16 00:00 97.3 67 18 112/74 93 03/26/16 20:00 97.8 73 18 111/73 92 03/26/16 16:00 95.9 86 18 107/61 98 I/O 03/26/16 03/26/16 03/26/16 03/27/16 03/27/16 03/27/16 07:00 15:00 23:00 07:00 15:00 23:00 Intake Total 2020 ml 480 ml Balance 2020 ml 480 ml Intake Oral 2020 ml 480 ml # Voids 2 3 4 # Bowel Movements 1 1 Objective Remarks GENERAL: Well-developed well-nourished. In no acute distress. SKIN: Warm and dry. No lesions noted. HEENT: Normocephalic. Pupils equal and round. Mucous membranes pink and moist. CARDIOVASCULAR: Regular rate and rhythm. No murmur appreciated. RESPIRATORY: No accessory muscle use. Clear to auscultation. Breath sounds equal bilaterally. GASTROINTESTINAL: Abdomen soft, non-tender, nondistended. Bowel sounds x4. MUSCULOSKELETAL: No obvious deformities. No clubbing or cyanosis. No edema. NEUROLOGICAL: A bit sleepy today but awakens easily to voice. No focal neurological deficits. Moves upper and lower extremities spontaneously. Normal speech. PSYCHIATRIC: Pleasantly confused mood and affect; insight and judgment limited. Procedures none A/P Problem List: (1) Encephalopathy ICD Code: G93.40 Status: Acute (2) Malnutrition ICD Code: E46 Status: Chronic (3) Leukocytosis ICD Code: D72.829 Status: Resolved (4) COPD (chronic obstructive pulmonary disease) ICD Code: J44.9 Status: Chronic Assessment and Plan 60-year-old male with a history of asthma, schizoaffective disorder, COPD presented to the ED with altered mental status from his [facility] who refused to take him back. [facility] reporting increasing confusion despite lactulose use. Encephalopathy: Resolved. Head CT images reviewed, unremarkable. Ammonia level on 03/05/16 was 68, on lactulose at [facility]. Presented back to ED on 03/06 with increasing confusion, Ammonia level 16. Improving- appears at his baseline. Has not been on lactulose since admission, ammonia level <10, thus lactulose DCed - no history of liver cirrhosis. He has been calm and cooperative throughout hospitalization. Stable Leukocytosis: resolved. UA negative. Malnutrition: evidenced by temporal wasting and low BMI 18. Consulted tour escort , started patient on Regular diet with Ensure Enlive on all meal trays. BMI improving. COPD: chronic, does not appear to be in exacerbation. Continue Spiriva and DuoNeb's q4h prn. Bipolar disorder: Continue home meds including [place] and Clozapine. [place] level in the therapeutic range. DVT prophylaxis: lovenox Discharge Planning Awaiting safe discharge plan, case management assisting. Ta Gallardo MD Mar 27, 2016 14:19
[2016-03-28 01:30] VITALS: BP 106/62; PULSE 72; RESP 18; TEMP 98.3; O2SAT 94
[2016-03-28 04:00] VITALS: BP 107/56; PULSE 67; RESP 18; TEMP 97.1; O2SAT 95
[2016-03-28] MEDS: LITHIUM CARBONATE 300 MG CAP PO SCH ×2 (07:57→20:03)
[2016-03-28] MEDS: ENOXAPARIN SODIUM 40 MG/0.4 ML SYRINGE SQ SCH (07:57)
[2016-03-28] MEDS: cloZAPine 100 MG TAB PO SCH ×2 (07:57→20:03)
[2016-03-28] MEDS: TIOTROPIUM BROMIDE 18 MCG INH INH SCH (07:58)
[2016-03-28] MEDS: SODIUM CHLORIDE 0.9% FLUSH 5 ML FLUSH FLUSH SCH ×2 (07:58→20:03)
[2016-03-28 08:00] VITALS: BP 104/55; PULSE 63; RESP 16; TEMP 95.6; O2SAT 96
[2016-03-28 12:00] VITALS: BP 102/50; PULSE 67; RESP 16; TEMP 96.8; O2SAT 95
--- NOTE | 2016-03-28 13:21 | HHI.PR ---
Subjective Remarks Follow-up encephalopathy. Patient has no complaints. Discussed with RN. Seen with physical therapy ambulating in the hallway Objective Vitals Vital Signs Date Time Temp Pulse Resp B/P Pulse Ox O2 Delivery O2 Flow Rate FiO2 03/28/16 12:00 96.8 67 16 102/50 95 03/28/16 08:00 95.6 63 16 104/55 96 03/28/16 04:00 97.1 67 18 107/56 95 03/28/16 01:30 98.3 72 18 106/62 94 03/27/16 20:00 98.0 66 20 112/59 94 03/27/16 16:00 98.3 70 23 109/57 96 I/O 03/27/16 03/27/16 03/27/16 03/28/16 03/28/16 03/28/16 07:00 15:00 23:00 07:00 15:00 23:00 Intake Total 480 ml Balance 480 ml Intake Oral 480 ml # Voids 4 3 4 # Bowel Movements 2 1 Objective Remarks GENERAL: Well-developed well-nourished. In no acute distress. SKIN: Warm and dry. No lesions noted. HEENT: Normocephalic. Pupils equal and round. Mucous membranes pink and moist. CARDIOVASCULAR: Regular rate and rhythm. No murmur appreciated. RESPIRATORY: No accessory muscle use. Clear to auscultation. Breath sounds equal bilaterally. GASTROINTESTINAL: Abdomen soft, non-tender, nondistended. Bowel sounds x4. MUSCULOSKELETAL: No obvious deformities. No clubbing or cyanosis. No edema. NEUROLOGICAL: A bit sleepy today but awakens easily to voice. No focal neurological deficits. Moves upper and lower extremities spontaneously. Normal speech. PSYCHIATRIC: Pleasantly confused mood and affect; insight and judgment limited. Procedures none A/P Problem List: (1) Encephalopathy ICD Code: G93.40 Status: Acute (2) Malnutrition ICD Code: E46 Status: Chronic (3) Leukocytosis ICD Code: D72.829 Status: Resolved (4) COPD (chronic obstructive pulmonary disease) ICD Code: J44.9 Status: Chronic Assessment and Plan 60-year-old male with a history of asthma, schizoaffective disorder, COPD presented to the ED with altered mental status from his [facility] who refused to take him back. [facility] reporting increasing confusion despite lactulose use. Encephalopathy: Resolved. Head CT images reviewed, unremarkable. Ammonia level on 03/05/16 was 68, on lactulose at [facility]. Presented back to ED on 03/06 with increasing confusion, Ammonia level 16. Improving- appears at his baseline. Has not been on lactulose since admission, ammonia level <10, thus lactulose DCed - no history of liver cirrhosis. He has been calm and cooperative throughout hospitalization. Stable Leukocytosis: resolved. UA negative. Malnutrition: evidenced by temporal wasting and low BMI 18. Consulted overnight caregiver , started patient on Regular diet with Ensure Enlive on all meal trays. BMI improving. COPD: chronic, does not appear to be in exacerbation. Continue Spiriva and DuoNeb's q4h prn. Bipolar disorder: Continue home meds including [place] and Clozapine. [place] level in the therapeutic range. DVT prophylaxis: lovenox Discharge Planning Awaiting safe discharge plan, case management assisting. Ta Gallardo MD Mar 28, 2016 13:21
[2016-03-28 16:00] VITALS: BP 97/61; PULSE 79; RESP 24; TEMP 96.1; O2SAT 96
[2016-03-28 21:41] VITALS: BP 106/57; PULSE 83; RESP 18; TEMP 97.6; O2SAT 99
[2016-03-29 00:09] VITALS: BP 103/60; PULSE 74; RESP 18; TEMP 97.1; O2SAT 97
[2016-03-29 05:35] VITALS: BP 122/57; PULSE 75; RESP 18; TEMP 96.2; O2SAT 96
[2016-03-29] MEDS: ENOXAPARIN SODIUM 40 MG/0.4 ML SYRINGE SQ SCH (08:05)
[2016-03-29] MEDS: LITHIUM CARBONATE 300 MG CAP PO SCH ×2 (08:05→22:36)
[2016-03-29] MEDS: SODIUM CHLORIDE 0.9% FLUSH 5 ML FLUSH FLUSH SCH ×2 (08:06→21:00)
[2016-03-29] MEDS: TIOTROPIUM BROMIDE 18 MCG INH INH SCH (08:06)
[2016-03-29] MEDS: cloZAPine 100 MG TAB PO SCH ×2 (08:06→21:00)
[2016-03-29 08:34] VITALS: BP 124/62; PULSE 65; RESP 20; TEMP 95.8; O2SAT 97
[2016-03-29 12:00] VITALS: BP 119/55; PULSE 78; RESP 20; TEMP 96.5; O2SAT 97
--- NOTE | 2016-03-29 14:13 | HHI.PR ---
Subjective Remarks Follow-up encephalopathy. No agitation. Discussed with RN Objective Vitals Vital Signs Date Time Temp Pulse Resp B/P Pulse Ox O2 Delivery O2 Flow Rate FiO2 03/29/16 12:00 96.5 78 20 119/55 97 03/29/16 08:34 95.8 65 20 124/62 97 03/29/16 05:35 96.2 75 18 122/57 96 03/29/16 00:09 97.1 74 18 103/60 97 03/28/16 21:41 97.6 83 18 106/57 99 03/28/16 16:00 96.1 79 24 97/61 96 I/O 03/28/16 03/28/16 03/28/16 03/29/16 03/29/16 03/29/16 06:59 14:59 22:59 06:59 14:59 22:59 Intake Total 480 ml 720 ml Balance 480 ml 720 ml Intake Oral 480 ml 720 ml # Voids 4 3 3 # Bowel Movements 1 Objective Remarks GENERAL: Well-developed well-nourished. In no acute distress. SKIN: Warm and dry. No lesions noted. HEENT: Normocephalic. Pupils equal and round. Mucous membranes pink and moist. CARDIOVASCULAR: Regular rate and rhythm. No murmur appreciated. RESPIRATORY: No accessory muscle use. Clear to auscultation. Breath sounds equal bilaterally. GASTROINTESTINAL: Abdomen soft, non-tender, nondistended. Bowel sounds x4. MUSCULOSKELETAL: No obvious deformities. No clubbing or cyanosis. No edema. NEUROLOGICAL: Awake. No focal neurological deficits. Moves upper and lower extremities spontaneously. Normal speech. Calm PSYCHIATRIC: Pleasantly confused mood and affect; insight and judgment limited. Procedures none A/P Problem List: (1) Encephalopathy ICD Code: G93.40 Status: Acute (2) Malnutrition ICD Code: E46 Status: Chronic (3) Leukocytosis ICD Code: D72.829 Status: Resolved (4) COPD (chronic obstructive pulmonary disease) ICD Code: J44.9 Status: Chronic Assessment and Plan 60-year-old male with a history of asthma, schizoaffective disorder, COPD presented to the ED with altered mental status from his [facility] who refused to take him back. [facility] reporting increasing confusion despite lactulose use. Encephalopathy: Resolved. Head CT images reviewed, unremarkable. Ammonia level on 03/05/16 was 68, on lactulose at [facility]. Presented back to ED on 03/06 with increasing confusion, Ammonia level 16. Improving- appears at his baseline. Has not been on lactulose since admission, ammonia level <10, thus lactulose DCed - no history of liver cirrhosis. He has been calm and cooperative throughout hospitalization. Stable Leukocytosis: resolved. UA negative. Malnutrition: evidenced by temporal wasting and low BMI 18. Consulted players club representative , started patient on Regular diet with Ensure Enlive on all meal trays. BMI improving. COPD: chronic, does not appear to be in exacerbation. Continue Spiriva and DuoNeb's q4h prn. Bipolar disorder: Continue home meds including [place] and Clozapine. [place] level in the therapeutic range. DVT prophylaxis: lovenox Discharge Planning Awaiting safe discharge plan, case management assisting. Stable for transfer to [facility]. Discussed with Ta Guzmán M.D., MD Mar 29, 2016 14:13
[2016-03-29 17:00] VITALS: BP 123/71; PULSE 70; RESP 16; TEMP 97.5; O2SAT 96
[2016-03-29 20:00] VITALS: BP 119/67; PULSE 77; RESP 20; TEMP 97.6; O2SAT 95
[2016-03-30] MEDS: ENOXAPARIN SODIUM 40 MG/0.4 ML SYRINGE SQ SCH (08:13)
[2016-03-30 09:59] VITALS: BP 100/59; PULSE 68; RESP 20; TEMP 96.9; O2SAT 93
[2016-03-30] MEDS: cloZAPine 100 MG TAB PO SCH ×2 (12:55→20:49)
[2016-03-30] MEDS: LITHIUM CARBONATE 300 MG CAP PO SCH ×2 (12:55→20:49)
--- NOTE | 2016-03-30 13:52 | HHI.PR ---
Subjective Remarks Patient evaluated this morning. Patient was transferred to [place] from the [facility] for care pending placement. Patient was seen in the ED on 03/02 for altered mental status and ammonia was found to be elevated at 68. The patient was prescribed lactulose and sent back to [facility] but returned to the ED on 03/06 again for altered mental status which has persisted despite negative workup. The patient denies any fevers or chills, chest pain, shortness of breath, abdominal pain, vomiting, or diarrhea. Patient got up out of bed abruptly after I interviewed him prior to my exam and starting walking towards the room door stating that he needed to use the bathroom. I had to direct him toward the bathroom in his room. Objective Vitals Vital Signs Date Time Temp Pulse Resp B/P Pulse Ox O2 Delivery O2 Flow Rate FiO2 03/30/16 09:59 96.9 68 20 100/59 93 03/29/16 20:00 97.6 77 20 119/67 95 03/29/16 17:00 97.5 70 16 123/71 96 I/O 03/29/16 03/29/16 03/29/16 03/30/16 03/30/16 03/30/16 07:00 15:00 23:00 07:00 15:00 23:00 Intake Total 480 ml 720 ml 120 ml Balance 480 ml 720 ml 120 ml Intake Oral 480 ml 720 ml 120 ml # Voids 3 3 3 # Bowel Movements 0 Imaging Last Impressions Head CT 03/06/16 1552 Signed Impressions: Service Date/Time: Sunday, March 06, 2016 16:22 - CONCLUSION: Stable symmetric moderate ventriculomegaly Yuval Chavarria MD Objective Remarks GENERAL: Tall, frail appearing patient in no apparent distress. SKIN: Warm and dry. Decreased skin turgor. HEAD: Atraumatic. Normocephalic. EYES: Pupils equal and round. No scleral icterus. Mild conjunctival injection bilaterally although patient likely had just woken up. CARDIOVASCULAR: Regular rate and rhythm. No murmurs. RESPIRATORY: No accessory muscle use. Clear to auscultation. Breath sounds equal bilaterally. GASTROINTESTINAL: Abdomen soft, non-tender, nondistended. NEUROLOGICAL: Awake and alert. Disoriented to place, month, year. Motor grossly within normal limits. Witnessed ambulating. Speech is muffled. 3-4/5 muscle strength in both arms. Unable to assess leg strength as patient has difficulty following commands. Procedures none Urinary Catheter: No Vascular Central Line Catheter: No A/P Problem List: (1) Encephalopathy ICD Code: G93.40 Status: Acute (2) Malnutrition ICD Code: E46 Status: Chronic (3) Leukocytosis ICD Code: D72.829 Status: Resolved (4) COPD (chronic obstructive pulmonary disease) ICD Code: J44.9 Status: Chronic Assessment and Plan 60-year-old male with a history of asthma, schizoaffective disorder, COPD presented to the ED with altered mental status from his [facility] who refused to take him back. [facility] reporting increasing confusion despite lactulose use. Transferred to yesterday. Records reviewed. Encephalopathy: Ammonia level on 03/05/16 was 68, on lactulose at [facility]. Presented back to ED on 03/06 with increasing confusion, Ammonia level 16. Has not been on lactulose since admission, and ammonia now wnl. No history of liver cirrhosis. Patient disoriented, likely at baseline. -Chest x-ray 03/02 personally reviewed with scarring at the right lung base, but no acute infection. -Head CT 03/06 without acute abnormality. -UA 03/07 without infection. -Normal ammonia level on 03/14 s/p lactulose treatment. -TSH 1.170 on 03/02 yet 3.780 on 03/06. Check free T3 and T4. -Continue physical therapy. Leukocytosis: Resolved. UA negative. Malnutrition: Evidenced by low BMI and physical exam. -Consulted television and radio repairer, started patient on Regular diet with Ensure Enlive on all meal trays. Outside Parts Sales following. COPD: chronic, does not appear to be in exacerbation. -Continue Spiriva and DuoNeb's q4h prn. Bipolar disorder: Continue home meds including [place] and Clozaril. [place] level in the therapeutic range. -Monitor for neutropenia periodically. Check am CBC. DVT prophylaxis: Lovenox. Patient was witnessed to be ambulating today although this is my first time evaluating patient. If he continues to ambulate , Lovenox can be discontinued. Discharge Planning Patient's sisters would like patient transferred to [place]. CM following. Jazmin Lino Mar 30, 2016 13:52
[2016-03-30 20:00] VITALS: BP 101/59; PULSE 66; RESP 18; TEMP 97.7; O2SAT 95
[2016-03-30] MEDS: SODIUM CHLORIDE 0.9% FLUSH 5 ML FLUSH FLUSH SCH (20:47)
[2016-03-31 07:54] LABS: AUTOMATED NEUTROPHIL # 2.1 TH/MM3 (1.8-7.7); BASOPHIL % 0.4 % (0.0-2.0); EOSINOPHIL # 0.3 TH/MM3 (0-0.4); EOSINOPHIL % 6.3 % (0.0-4.0); HEMATOCRIT 35.5 % (39.0-51.0); HEMO FLAGS DIFF FINAL; LYMPH % 32.6 % (9.0-44.0); LYMPHOCYTE # 1.6 TH/MM3 (1.0-4.8); MEAN CELL VOLUME 93.1 FL (80.0-100.0); MEAN CORPUSCULAR HEMOGLOBIN 30.7 PG (27.0-34.0); MONO % 16.3 % (0.0-8.0); NEUT % 44.4 % (16.0-70.0); PLATELET COUNT 276 TH/MM3 (150-450); RED BLOOD COUNT 3.81 MIL/MM3 (4.50-5.90); WHITE BLOOD COUNT 4.8 TH/MM3 (4.0-11.0)
[2016-03-31 08:00] VITALS: BP 116/69; PULSE 82; RESP 20; TEMP 97.4; O2SAT 94
[2016-03-31] MEDS: SODIUM CHLORIDE 0.9% FLUSH 5 ML FLUSH FLUSH SCH ×2 (09:00→21:00)
[2016-03-31] MEDS: cloZAPine 100 MG TAB PO SCH ×2 (09:04→21:17)
[2016-03-31] MEDS: ENOXAPARIN SODIUM 40 MG/0.4 ML SYRINGE SQ SCH (09:04)
[2016-03-31] MEDS: LITHIUM CARBONATE 300 MG CAP PO SCH ×2 (09:04→21:17)
[2016-03-31 09:23] LABS: FREE T3 2.23 PG/ML (2.18-3.98); FREE T4 0.95 NG/DL (0.76-1.46)
--- NOTE | 2016-03-31 11:09 | HHI.PR ---
Subjective Remarks Patient seen and examined today. Patient denies any new complaints. Patient resting comfortably, Objective Vitals Vital Signs Date Time Temp Pulse Resp B/P Pulse Ox O2 Delivery O2 Flow Rate FiO2 03/31/16 08:00 97.4 82 20 116/69 94 03/30/16 20:00 97.7 66 18 101/59 95 I/O 03/30/16 03/30/16 03/30/16 03/31/16 03/31/16 03/31/16 06:59 14:59 22:59 06:59 14:59 22:59 Intake Total 120 ml 700 ml Balance 120 ml 700 ml Intake Oral 120 ml 700 ml # Voids 3 4 # Bowel Movements 0 0 Result Diagram: 03/31/16 0722 Objective Remarks GENERAL: Well-developed, well-nourished, in no acute distress. alert, orientated to [facility], month, person. Does not know state, states that he just woke up does not know the answers HEENT: Head is normocephalic without any lesions or masses noted. Facial features are symmetric. Eyes: Pupils equal round reactive to light. Extraocular muscles are intact. Conjunctivae were clear NECK: Supple without any masses. Trachea midline no deviation. No JVD, CARDIAC: Regular rhythm, regular rate. S1/S2 are heard. No murmurs gallops or rubs. LUNGS: Clear to auscultation bilaterally. No wheeze, rhonchi or rales. No use of accessory muscles on inspiration or expiration. ABDOMEN: Soft, nontender. Nondistended. Bowel sounds heard in all 4 quadrants. No organomegaly or masses. Negative rebound, negative guarding EXTREMITIES: No edema, pulses are equal bilaterally. No cyanosis or clubbing NEUROLOGY: Mood and affect appear appropriate. Cranial nerves II through XII grossly intact. Moving all extremities, speech is clear Procedures none Urinary Catheter: No Vascular Central Line Catheter: No A/P Assessment and Plan 60-year-old male with a history of asthma, schizoaffective disorder, COPD presented to the ED with altered mental status from his [facility] who refused to take him back. [facility] reporting increasing confusion despite lactulose use. Records reviewed. Encephalopathy: likely at baseline. -Chest x-ray 03/02 personally reviewed with scarring at the right lung base, but no acute infection. -Head CT 03/06 without acute abnormality. -UA 03/07 without infection. -Normal ammonia level on 03/14 s/p lactulose treatment. -TSH 1.170 on 03/02 yet 3.780 on 03/06. Free T3, free T4 were normal -Physical therapy indicates that there is no need for continued physical therapy at this time. Physical therapy will be discontinued Leukocytosis: Resolved. UA negative. Malnutrition: Evidenced by low BMI and physical exam. -Consulted law firm consultant, started patient on Regular diet with Ensure Enlive on all meal trays. Well Driller following. COPD: chronic, does not appear to be in exacerbation. -Continue Spiriva and DuoNeb's q4h prn. Bipolar disorder: Continue home meds including [place] and Clozaril. [place] level in the therapeutic range. -Monitor for neutropenia periodically. DVT prophylaxis: Low risk, patient ambulating Discharge Planning 03/29/16 14:30 SPOKE TO SISTERS AND THEY WOULD LIKE PT TO GET TRANSFERED NEAR THEM IN [place], THEY ALREADY CONTACTED A PLACE CALLED [facility] PHONE NUMBER [phone] AND FAX NUMBER [phone]. SPOKE TO CHERYL AT [facility] AND SHE TOLD THAT THEY RECEIVED HIS CLINICALS LONG TIME AGO AND CM JUST FAXED UPDATED CLINICALS TODAY FOR CONSIDERATION. CM WILL FOLLOW.FAMILY AWARE OF THE TRANSFER. JENNI LOPEZ,BSN,CM Surya Neely Mar 31, 2016 11:09
[2016-03-31] MEDS: TIOTROPIUM BROMIDE 18 MCG INH INH SCH (18:14)
[2016-03-31 20:00] VITALS: BP 111/85; PULSE 80; RESP 18; TEMP 97.2; O2SAT 95
[2016-04-01] MEDS: SODIUM CHLORIDE 0.9% FLUSH 5 ML FLUSH FLUSH SCH (09:00)
[2016-04-01] MEDS: cloZAPine 100 MG TAB PO SCH ×2 (09:06→21:22)
[2016-04-01] MEDS: TIOTROPIUM BROMIDE 18 MCG INH INH SCH (09:06)
[2016-04-01] MEDS: LITHIUM CARBONATE 300 MG CAP PO SCH (09:06)
[2016-04-01] MEDS: ENOXAPARIN SODIUM 40 MG/0.4 ML SYRINGE SQ SCH (09:06)
--- NOTE | 2016-04-01 09:17 | HHI.PR ---
Subjective Remarks Patient seen and examined today. Patient denies any new complaints. No change in clinical status. Objective Vitals Vital Signs Date Time Temp Pulse Resp B/P Pulse Ox O2 Delivery O2 Flow Rate FiO2 03/31/16 20:00 97.2 80 18 111/85 95 Result Diagram: 03/31/16 0722 Objective Remarks GENERAL: Well-developed, well-nourished, in no acute distress. alert, orientated to [facility], person, not orientated to year, month, state HEENT: Head is normocephalic without any lesions or masses noted. Facial features are symmetric. Eyes: Pupils equal round reactive to light. Extraocular muscles are intact. Conjunctivae were clear NECK: Supple without any masses. Trachea midline no deviation. No JVD, CARDIAC: Regular rhythm, regular rate. S1/S2 are heard. No murmurs gallops or rubs. LUNGS: Clear to auscultation bilaterally. No wheeze, rhonchi or rales. No use of accessory muscles on inspiration or expiration. ABDOMEN: Soft, nontender. Nondistended. Bowel sounds heard in all 4 quadrants. No organomegaly or masses. Negative rebound, negative guarding EXTREMITIES: No edema, pulses are equal bilaterally. No cyanosis or clubbing NEUROLOGY: Mood and affect appear appropriate. Cranial nerves II through XII grossly intact. Moving all extremities, speech is clear Procedures none Urinary Catheter: No Vascular Central Line Catheter: No A/P Assessment and Plan 60-year-old male with a history of asthma, schizoaffective disorder, COPD presented to the ED with altered mental status from his [facility] who refused to take him back. [facility] reporting increasing confusion despite lactulose use. Records reviewed. Encephalopathy: likely at baseline. -Chest x-ray 03/02 personally reviewed with scarring at the right lung base, but no acute infection. -Head CT 03/06 without acute abnormality. -UA 03/07 without infection. -Normal ammonia level on 03/14 s/p lactulose treatment. -TSH 1.170 on 03/02 yet 3.780 on 03/06. Free T3, free T4 were normal -Physical therapy indicates that there is no need for continued physical therapy at this time. Physical therapy will be discontinued Leukocytosis: Resolved. UA negative. Malnutrition: Evidenced by low BMI and physical exam. -Consulted personal driver, started patient on Regular diet with Ensure Enlive on all meal trays. Leaf Binner following. COPD: chronic, does not appear to be in exacerbation. Bipolar disorder: Continue home meds including [place] and Clozaril. [place] level in the therapeutic range. -Monitor for neutropenia periodically. DVT prophylaxis: Low risk, patient ambulating Discharge Planning 03/29/16 14:30 SPOKE TO SISTERS AND THEY WOULD LIKE PT TO GET TRANSFERED NEAR THEM IN [place], THEY ALREADY CONTACTED A PLACE CALLED [facility] PHONE NUMBER [phone] AND FAX NUMBER [phone]. SPOKE TO CHERYL AT [facility] AND SHE TOLD THAT THEY RECEIVED HIS CLINICALS LONG TIME AGO AND CM JUST FAXED UPDATED CLINICALS TODAY FOR CONSIDERATION. CM WILL FOLLOW.FAMILY AWARE OF THE TRANSFER. JENNI LOPEZ,BSN,CM Surya Neely Apr 01, 2016 09:17
[2016-04-01 09:31] VITALS: BP 112/63; PULSE 75; RESP 16; TEMP 97.7; O2SAT 97
[2016-04-01 20:00] VITALS: BP 105/59; PULSE 70; RESP 16; TEMP 98.7; O2SAT 97
[2016-04-01] MEDS: LITHIUM CARBONATE 300 MG TAB PO SCH (21:00)
[2016-04-02 08:00] VITALS: BP 119/75; PULSE 64; RESP 18; TEMP 98.1; O2SAT 96
--- NOTE | 2016-04-02 10:21 | HHI.PR ---
Subjective Remarks Patient seen and examined today. Patient denies any new complaints. No change in clinical status. Objective Vitals Vital Signs Date Time Temp Pulse Resp B/P Pulse Ox O2 Delivery O2 Flow Rate FiO2 04/02/16 08:00 98.1 64 18 119/75 96 04/01/16 20:00 98.7 70 16 105/59 97 Result Diagram: 03/31/16 0722 Objective Remarks GENERAL: Well-developed, well-nourished, in no acute distress. alert, orientated to [facility], person, not orientated to year, month, state HEENT: Head is normocephalic without any lesions or masses noted. Facial features are symmetric. Eyes: Pupils equal round reactive to light. Extraocular muscles are intact. Conjunctivae were clear NECK: Supple without any masses. Trachea midline no deviation. No JVD, CARDIAC: Regular rhythm, regular rate. S1/S2 are heard. No murmurs gallops or rubs. LUNGS: Clear to auscultation bilaterally. No wheeze, rhonchi or rales. No use of accessory muscles on inspiration or expiration. ABDOMEN: Soft, nontender. Nondistended. Bowel sounds heard in all 4 quadrants. No organomegaly or masses. Negative rebound, negative guarding EXTREMITIES: No edema, pulses are equal bilaterally. No cyanosis or clubbing NEUROLOGY: Mood and affect appear appropriate. Cranial nerves II through XII grossly intact. Moving all extremities, speech is clear Procedures none Urinary Catheter: No Vascular Central Line Catheter: No A/P Assessment and Plan 60-year-old male with a history of asthma, schizoaffective disorder, COPD presented to the ED with altered mental status from his [facility] who refused to take him back. [facility] reporting increasing confusion despite lactulose use. Records reviewed. Encephalopathy: likely at baseline. -Chest x-ray 03/02 personally reviewed with scarring at the right lung base, but no acute infection. -Head CT 03/06 without acute abnormality. -UA 03/07 without infection. -Normal ammonia level on 03/14 s/p lactulose treatment. -TSH 1.170 on 03/02 yet 3.780 on 03/06. Free T3, free T4 were normal -Physical therapy indicates that there is no need for continued physical therapy at this time. Physical therapy will be discontinued Leukocytosis: Resolved. UA negative. Malnutrition: Evidenced by low BMI and physical exam. -Consulted char belt operator, started patient on Regular diet with Ensure Enlive on all meal trays. Plug Paster following. -Check pre-albumin level COPD: chronic, does not appear to be in exacerbation. Bipolar disorder: Continue home meds including [place] and Clozaril. [place] level in the therapeutic range. -Monitor for neutropenia periodically. DVT prophylaxis: Low risk, patient ambulating Discharge Planning 03/29/16 14:30 SPOKE TO SISTERS AND THEY WOULD LIKE PT TO GET TRANSFERED NEAR THEM IN [place], THEY ALREADY CONTACTED A PLACE CALLED [facility] PHONE NUMBER [phone] AND FAX NUMBER [phone]. SPOKE TO CHERYL AT [facility] AND SHE TOLD THAT THEY RECEIVED HIS CLINICALS LONG TIME AGO AND CM JUST FAXED UPDATED CLINICALS TODAY FOR CONSIDERATION. CM WILL FOLLOW.FAMILY AWARE OF THE TRANSFER. JENNI LOPEZ,BSN,CM Surya Neely Apr 02, 2016 10:21
[2016-04-02] MEDS: cloZAPine 100 MG TAB PO SCH ×2 (11:06→20:48)
[2016-04-02] MEDS: ENOXAPARIN SODIUM 40 MG/0.4 ML SYRINGE SQ SCH (11:06)
[2016-04-02] MEDS: TIOTROPIUM BROMIDE 18 MCG INH INH SCH (11:07)
[2016-04-02 20:00] VITALS: BP 102/56; PULSE 70; RESP 18; TEMP 98.6; O2SAT 93
[2016-04-02] MEDS: LITHIUM CARBONATE 300 MG TAB PO SCH ×2 (20:48→21:00)
[2016-04-03 08:00] VITALS: BP 96/71; PULSE 66; RESP 18; TEMP 96.4; O2SAT 96
[2016-04-03] MEDS: LITHIUM CARBONATE 300 MG TAB PO SCH ×2 (08:50→20:43)
[2016-04-03] MEDS: cloZAPine 100 MG TAB PO SCH ×2 (08:50→20:43)
[2016-04-03] MEDS: ENOXAPARIN SODIUM 40 MG/0.4 ML SYRINGE SQ SCH (08:51)
--- NOTE | 2016-04-03 09:16 | HHI.PR ---
Subjective Remarks Patient examined today. Patient denies any new complaints. No change in clinical status Objective Vitals Vital Signs Date Time Temp Pulse Resp B/P Pulse Ox O2 Delivery O2 Flow Rate FiO2 04/03/16 08:00 96.4 66 18 96/71 96 04/02/16 20:00 98.6 70 18 102/56 93 I/O 04/02/16 04/02/16 04/02/16 04/03/16 04/03/16 04/03/16 07:00 15:00 23:00 07:00 15:00 23:00 Intake Total 720 ml 240 ml 480 ml Balance 720 ml 240 ml 480 ml Intake Oral 720 ml 240 ml 480 ml # Voids 3 2 2 # Bowel Movements 0 0 Result Diagram: 03/31/16 0722 Objective Remarks GENERAL: Well-developed, well-nourished, in no acute distress. alert, orientated to [facility], person, not orientated to year, month, state HEENT: Head is normocephalic without any lesions or masses noted. Facial features are symmetric. Eyes: Pupils equal round reactive to light. Extraocular muscles are intact. Conjunctivae were clear NECK: Supple without any masses. Trachea midline no deviation. No JVD, CARDIAC: Regular rhythm, regular rate. S1/S2 are heard. No murmurs gallops or rubs. LUNGS: Clear to auscultation bilaterally. No wheeze, rhonchi or rales. No use of accessory muscles on inspiration or expiration. ABDOMEN: Soft, nontender. Nondistended. Bowel sounds heard in all 4 quadrants. No organomegaly or masses. Negative rebound, negative guarding EXTREMITIES: No edema, pulses are equal bilaterally. No cyanosis or clubbing NEUROLOGY: Mood and affect appear appropriate. Cranial nerves II through XII grossly intact. Moving all extremities, speech is clear Procedures none Urinary Catheter: No Vascular Central Line Catheter: No A/P Assessment and Plan 60-year-old male with a history of asthma, schizoaffective disorder, COPD presented to the ED with altered mental status from his [facility] who refused to take him back. [facility] reporting increasing confusion despite lactulose use. Records reviewed. Encephalopathy: likely at baseline. -Chest x-ray 03/02 personally reviewed with scarring at the right lung base, but no acute infection. -Head CT 03/06 without acute abnormality. -UA 03/07 without infection. -Normal ammonia level on 03/14 s/p lactulose treatment. -TSH 1.170 on 03/02 yet 3.780 on 03/06. Free T3, free T4 were normal -Physical therapy indicates that there is no need for continued physical therapy at this time. Physical therapy has been discontinued Leukocytosis: Resolved. UA negative. Malnutrition: Evidenced by low BMI and physical exam. -Consulted title one kindergarten teacher, started patient on Regular diet with Ensure Enlive on all meal trays. Life Insurance Underwriter following. -Prealbumin 22 COPD: chronic, does not appear to be in exacerbation. Bipolar disorder: Continue home meds including [place] and Clozaril. [place] level in the therapeutic range. -Monitor for neutropenia periodically. DVT prophylaxis: Low risk, patient ambulating Discharge Planning 03/29/16 14:30 SPOKE TO SISTERS AND THEY WOULD LIKE PT TO GET TRANSFERED NEAR THEM IN [place], THEY ALREADY CONTACTED A PLACE CALLED [facility] PHONE NUMBER [phone] AND FAX NUMBER [phone]. SPOKE TO CHERYL AT [facility] AND SHE TOLD THAT THEY RECEIVED HIS CLINICALS LONG TIME AGO AND CM JUST FAXED UPDATED CLINICALS TODAY FOR CONSIDERATION. CM WILL FOLLOW.FAMILY AWARE OF THE TRANSFER. JENNI LOPEZ,BSN,CM Surya Neely Apr 03, 2016 09:16
[2016-04-03] MEDS: TIOTROPIUM BROMIDE 18 MCG INH INH SCH (09:52)
[2016-04-03 20:00] VITALS: BP 114/53; PULSE 83; RESP 18; TEMP 98; O2SAT 93
[2016-04-04] MEDS: LITHIUM CARBONATE 300 MG TAB PO SCH ×2 (08:14→21:01)
[2016-04-04] MEDS: TIOTROPIUM BROMIDE 18 MCG INH INH SCH (08:14)
[2016-04-04] MEDS: ENOXAPARIN SODIUM 40 MG/0.4 ML SYRINGE SQ SCH (08:14)
--- NOTE | 2016-04-04 08:18 | HHI.PR ---
Subjective Remarks Patient seen and examined today. Patient has any new complaints. No change in clinical status. Objective Vitals Vital Signs Date Time Temp Pulse Resp B/P Pulse Ox O2 Delivery O2 Flow Rate FiO2 04/03/16 20:00 98.0 83 18 114/53 93 I/O 04/03/16 04/03/16 04/03/16 04/04/16 04/04/16 04/04/16 07:00 15:00 23:00 07:00 15:00 23:00 Intake Total 480 ml 540 ml 0 ml 0 ml Balance 480 ml 540 ml 0 ml 0 ml Intake Oral 480 ml 540 ml IV Total 0 ml 0 ml # Voids 2 2 # Bowel Movements 0 Result Diagram: 03/31/16 0722 Objective Remarks GENERAL: Well-developed, well-nourished, in no acute distress. alert, orientated to [facility], person, not orientated to year, month, state HEENT: Head is normocephalic without any lesions or masses noted. Facial features are symmetric. Eyes: Pupils equal round reactive to light. Extraocular muscles are intact. Conjunctivae were clear NECK: Supple without any masses. Trachea midline no deviation. No JVD, CARDIAC: Regular rhythm, regular rate. S1/S2 are heard. No murmurs gallops or rubs. LUNGS: Clear to auscultation bilaterally. No wheeze, rhonchi or rales. No use of accessory muscles on inspiration or expiration. ABDOMEN: Soft, nontender. Nondistended. Bowel sounds heard in all 4 quadrants. No organomegaly or masses. Negative rebound, negative guarding EXTREMITIES: No edema, pulses are equal bilaterally. No cyanosis or clubbing NEUROLOGY: Mood and affect appear appropriate. Cranial nerves II through XII grossly intact. Moving all extremities, speech is clear Procedures none Urinary Catheter: No Vascular Central Line Catheter: No A/P Assessment and Plan 60-year-old male with a history of asthma, schizoaffective disorder, COPD presented to the ED with altered mental status from his [facility] who refused to take him back. ASSISTED reporting increasing confusion despite lactulose use. Records reviewed. Encephalopathy: likely at baseline. -Chest x-ray 03/02 personally reviewed with scarring at the right lung base, but no acute infection. -Head CT 03/06 without acute abnormality. -UA 03/07 without infection. -Normal ammonia level on 03/14 s/p lactulose treatment. -TSH 1.170 on 03/02 yet 3.780 on 03/06. Free T3, free T4 were normal -Physical therapy indicates that there is no need for continued physical therapy at this time. Physical therapy has been discontinued Leukocytosis: Resolved. UA negative. Malnutrition: Evidenced by low BMI and physical exam. -Consulted on site construction superintendent, started patient on Regular diet with Ensure Enlive on all meal trays. Denture Finisher following. -Prealbumin 22 COPD: chronic, does not appear to be in exacerbation. Bipolar disorder: Continue home meds including [place] and Clozaril. [place] level in the therapeutic range. -Monitor for neutropenia periodically. DVT prophylaxis: Low risk, patient ambulating Discharge Planning 04/01/16 PATIENTS SISTER CALLED TODAY AND LEFT MESSAGE FOR C/M TO CALL [phone] SHE REQUESTED A CALL BACK ABOUT HER SISTER PROGRESS AND NEED TO TRANSFER HER CLOSE TO WHERE SHE LIVES. MR DARA PHOENIX FROM [facility] AND [facility] PRESENTED TODAY TO DO EVULATION ON PATIENT , HE WILL INFORM C./M IF PATIENT WILL BE ACCEPTED TO THEIR FACILITY AFTER RECORDS REVIEWED AND INSURANCE AGREE TO D/C PLAN. Surya Neely Apr 04, 2016 08:18
[2016-04-04] MEDS: cloZAPine 100 MG TAB PO SCH ×3 (08:44→21:01)
[2016-04-04 10:05] VITALS: BP 99/62; PULSE 75; RESP 21; TEMP 98.1; O2SAT 97
[2016-04-04 20:00] VITALS: BP 117/83; PULSE 78; RESP 16; TEMP 98.5; O2SAT 97
--- NOTE | 2016-04-05 07:54 | HHI.PR ---
Subjective Remarks Patient seen and examined today. Patient denies any complaints. No change in clinical status. Objective Vitals Vital Signs Date Time Temp Pulse Resp B/P Pulse Ox O2 Delivery O2 Flow Rate FiO2 04/04/16 20:00 98.5 78 16 117/83 97 04/04/16 10:05 98.1 75 21 99/62 97 I/O 04/04/16 04/04/16 04/04/16 04/05/16 04/05/16 04/05/16 07:00 15:00 23:00 07:00 15:00 23:00 Intake Total 0 ml 1200 ml Balance 0 ml 1200 ml Intake Oral 1200 ml IV Total 0 ml # Voids 4 1 # Bowel Movements 0 Objective Remarks GENERAL: Well-developed, well-nourished, in no acute distress. alert, orientated to [facility], person, not orientated to year, month, state HEENT: Head is normocephalic without any lesions or masses noted. Facial features are symmetric. Eyes: Pupils equal round reactive to light. Extraocular muscles are intact. Conjunctivae were clear NECK: Supple without any masses. Trachea midline no deviation. No JVD, CARDIAC: Regular rhythm, regular rate. S1/S2 are heard. No murmurs gallops or rubs. LUNGS: Clear to auscultation bilaterally. No wheeze, rhonchi or rales. No use of accessory muscles on inspiration or expiration. ABDOMEN: Soft, nontender. Nondistended. Bowel sounds heard in all 4 quadrants. No organomegaly or masses. Negative rebound, negative guarding EXTREMITIES: No edema, pulses are equal bilaterally. No cyanosis or clubbing NEUROLOGY: Mood and affect appear appropriate. Cranial nerves II through XII grossly intact. Moving all extremities, speech is clear Procedures none Urinary Catheter: No Vascular Central Line Catheter: No A/P Assessment and Plan 60-year-old male with a history of asthma, schizoaffective disorder, COPD presented to the ED with altered mental status from his [facility]ENT[facility] who refused to take him back. P[facility]ITENTIARY reporting increasing confusion despite lactulose use. Records reviewed. Encephalopathy: baseline. -Chest x-ray 03/02 personally reviewed with scarring at the right lung base, but no acute infection. -Head CT 03/06 without acute abnormality. -UA 03/07 without infection. -Normal ammonia level on 03/14 s/p lactulose treatment. -TSH 1.170 on 03/02 yet 3.780 on 03/06. Free T3, free T4 were normal -Physical therapy indicates that there is no need for continued physical therapy at this time. Physical therapy has been discontinued Leukocytosis: Resolved. UA negative. Malnutrition: Evidenced by low BMI and physical exam. -Consulted legal process specialist, started patient on Regular diet with Ensure Enlive on all meal trays. Signal System Testing Maintainer following. -Prealbumin 22 COPD: chronic, does not appear to be in exacerbation. Bipolar disorder: Continue home meds including [place] and Clozaril. [place] level in the therapeutic range. -Monitor for neutropenia periodically. DVT prophylaxis: Low risk, patient ambulating Discharge Planning 04/01/16 PATIENTS SISTER CALLED TODAY AND LEFT MESSAGE FOR C/M TO CALL [phone] SHE REQUESTED A CALL BACK ABOUT HER SISTER PROGRESS AND NEED TO TRANSFER HER CLOSE TO WHERE SHE LIVES. MR DARA PHOENIX FROM [facility] AND [place] PRESENTED TODAY TO DO EVULATION ON PATIENT , HE WILL INFORM C./M IF PATIENT WILL BE ACCEPTED TO THEIR FACILITY AFTER RECORDS REVIEWED AND INSURANCE AGREE TO D/C PLAN. Surya Neely Apr 05, 2016 07:54
[2016-04-05] MEDS: cloZAPine 100 MG TAB PO SCH ×2 (08:51→20:57)
[2016-04-05] MEDS: LITHIUM CARBONATE 300 MG TAB PO SCH ×2 (08:51→20:56)
[2016-04-05] MEDS: ENOXAPARIN SODIUM 40 MG/0.4 ML SYRINGE SQ SCH (08:52)
[2016-04-05] MEDS: TIOTROPIUM BROMIDE 18 MCG INH INH SCH (08:55)
[2016-04-05 09:20] VITALS: BP 115/74; PULSE 69; RESP 20; TEMP 97.3; O2SAT 98
[2016-04-05 20:00] VITALS: BP 107/64; PULSE 74; RESP 20; TEMP 97.3; O2SAT 95
[2016-04-06 08:00] VITALS: BP 106/61; PULSE 67; RESP 18; TEMP 96; O2SAT 98
--- NOTE | 2016-04-06 08:20 | HHI.PR ---
Subjective Remarks Patient seen and examined today. Patient denies any new complaints. No change in clinical status Objective Vitals Vital Signs Date Time Temp Pulse Resp B/P Pulse Ox O2 Delivery O2 Flow Rate FiO2 04/05/16 20:00 97.3 74 20 107/64 95 04/05/16 09:20 97.3 69 20 115/74 98 Objective Remarks GENERAL: Well-developed, well-nourished, in no acute distress. alert, orientated to [facility], person, not orientated to year, month, state HEENT: Head is normocephalic without any lesions or masses noted. Facial features are symmetric. Eyes: Pupils equal round reactive to light. Extraocular muscles are intact. Conjunctivae were clear NECK: Supple without any masses. Trachea midline no deviation. No JVD, CARDIAC: Regular rhythm, regular rate. S1/S2 are heard. No murmurs gallops or rubs. LUNGS: Clear to auscultation bilaterally. No wheeze, rhonchi or rales. No use of accessory muscles on inspiration or expiration. ABDOMEN: Soft, nontender. Nondistended. Bowel sounds heard in all 4 quadrants. No organomegaly or masses. Negative rebound, negative guarding EXTREMITIES: No edema, pulses are equal bilaterally. No cyanosis or clubbing NEUROLOGY: Mood and affect appear appropriate. Cranial nerves II through XII grossly intact. Moving all extremities, speech is clear Procedures none Urinary Catheter: No Vascular Central Line Catheter: No A/P Assessment and Plan 60-year-old male with a history of asthma, schizoaffective disorder, COPD presented to the ED with altered mental status from his [facility] who refused to take him back. [facility] reporting increasing confusion despite lactulose use. Records reviewed. Encephalopathy: baseline. -Chest x-ray 03/02 personally reviewed with scarring at the right lung base, but no acute infection. -Head CT 03/06 without acute abnormality. -UA 03/07 without infection. -Normal ammonia level on 03/14 s/p lactulose treatment. -TSH 1.170 on 03/02 yet 3.780 on 03/06. Free T3, free T4 were normal -Physical therapy indicates that there is no need for continued physical therapy at this time. Physical therapy has been discontinued Malnutrition: Evidenced by low BMI and physical exam. -Consulted pile operator, started patient on Regular diet with Ensure Enlive on all meal trays. Cottage Master following. -Prealbumin 22 COPD: chronic, does not appear to be in exacerbation. Bipolar disorder: Continue home meds including [place] and Clozaril. [place] level in the therapeutic range. -Monitor for neutropenia and lithium level periodically. DVT prophylaxis: Low risk, patient ambulating Discharge Planning 04/01/16 PATIENTS SISTER CALLED TODAY AND LEFT MESSAGE FOR C/M TO CALL [phone] SHE REQUESTED A CALL BACK ABOUT HER SISTER PROGRESS AND NEED TO TRANSFER HER CLOSE TO WHERE SHE LIVES. MR DARA PHOENIX FROM [facility] AND [place] [facility] PRESENTED TODAY TO DO EVULATION ON PATIENT , HE WILL INFORM C./M IF PATIENT WILL BE ACCEPTED TO THEIR FACILITY AFTER RECORDS REVIEWED AND INSURANCE AGREE TO D/C PLAN. Surya Neely Apr 06, 2016 08:20
[2016-04-06] MEDS: LITHIUM CARBONATE 300 MG TAB PO SCH ×2 (08:44→21:04)
[2016-04-06] MEDS: cloZAPine 100 MG TAB PO SCH ×2 (08:44→21:04)
[2016-04-06] MEDS: ENOXAPARIN SODIUM 40 MG/0.4 ML SYRINGE SQ SCH (08:45)
[2016-04-06] MEDS: TIOTROPIUM BROMIDE 18 MCG INH INH SCH (08:45)
[2016-04-06 21:00] VITALS: BP 110/81; PULSE 72; RESP 16; TEMP 97.8; O2SAT 96
[2016-04-07 08:00] VITALS: BP 120/67; PULSE 76; RESP 18; TEMP 96.1; O2SAT 97
[2016-04-07] MEDS: LITHIUM CARBONATE 300 MG TAB PO SCH ×2 (08:46→21:23)
[2016-04-07] MEDS: TIOTROPIUM BROMIDE 18 MCG INH INH SCH (08:46)
[2016-04-07] MEDS: cloZAPine 100 MG TAB PO SCH ×2 (08:51→21:26)
--- NOTE | 2016-04-07 09:44 | HHI.PR ---
Subjective Remarks Patient seen and examined today. Patient denies any new complaints. No change in clinical status. Objective Vitals Vital Signs Date Time Temp Pulse Resp B/P Pulse Ox O2 Delivery O2 Flow Rate FiO2 04/07/16 08:00 96.1 76 18 120/67 97 04/06/16 21:00 97.8 72 16 110/81 96 I/O 04/06/16 04/06/16 04/06/16 04/07/16 04/07/16 04/07/16 07:00 15:00 23:00 07:00 15:00 23:00 Intake Total 900 ml Balance 900 ml Intake Oral 900 ml # Voids 3 # Bowel Movements 0 Objective Remarks GENERAL: Well-developed, well-nourished, in no acute distress. alert, orientated to [facility], person, not orientated to year, month, state HEENT: Head is normocephalic without any lesions or masses noted. Facial features are symmetric. Eyes: Pupils equal round reactive to light. Extraocular muscles are intact. Conjunctivae were clear NECK: Supple without any masses. Trachea midline no deviation. No JVD, CARDIAC: Regular rhythm, regular rate. S1/S2 are heard. No murmurs gallops or rubs. LUNGS: Clear to auscultation bilaterally. No wheeze, rhonchi or rales. No use of accessory muscles on inspiration or expiration. ABDOMEN: Soft, nontender. Nondistended. Bowel sounds heard in all 4 quadrants. No organomegaly or masses. Negative rebound, negative guarding EXTREMITIES: No edema, pulses are equal bilaterally. No cyanosis or clubbing NEUROLOGY: Mood and affect appear appropriate. Cranial nerves II through XII grossly intact. Moving all extremities, speech is clear Procedures none Urinary Catheter: No Vascular Central Line Catheter: No A/P Assessment and Plan 60-year-old male with a history of asthma, schizoaffective disorder, COPD presented to the ED with altered mental status from his [facility] who refused to take him back. [facility] reporting increasing confusion despite lactulose use. Records reviewed. Encephalopathy: baseline. -Chest x-ray 03/02 personally reviewed with scarring at the right lung base, but no acute infection. -Head CT 03/06 without acute abnormality. -UA 03/07 without infection. -Normal ammonia level on 03/14 s/p lactulose treatment. -TSH 1.170 on 03/02 yet 3.780 on 03/06. Free T3, free T4 were normal -Physical therapy indicates that there is no need for continued physical therapy at this time. Physical therapy has been discontinued Malnutrition: Evidenced by low BMI and physical exam. -Consulted advance agent, started patient on Regular diet with Ensure Enlive on all meal trays. Photographic Hand Developer following. -Prealbumin 22 COPD: chronic, does not appear to be in exacerbation. Bipolar disorder: Continue home meds including [place] and Clozaril. [place] level in the therapeutic range. -Monitor for neutropenia and lithium level periodically. DVT prophylaxis: Low risk, patient ambulating Discharge Planning 04/01/16 PATIENTS SISTER CALLED TODAY AND LEFT MESSAGE FOR C/M TO CALL [phone] SHE REQUESTED A CALL BACK ABOUT HER SISTER PROGRESS AND NEED TO TRANSFER HER CLOSE TO WHERE SHE LIVES. MR DARA PHOENIX FROM [facility] AND [place] PRESENTED TODAY TO DO EVULATION ON PATIENT , HE WILL INFORM C./M IF PATIENT WILL BE ACCEPTED TO THEIR FACILITY AFTER RECORDS REVIEWED AND INSURANCE AGREE TO D/C PLAN. Surya Neely Apr 07, 2016 09:44
[2016-04-07 21:03] VITALS: BP 103/61; PULSE 70; RESP 20; TEMP 98.9; O2SAT 96
[2016-04-08 08:00] VITALS: BP 124/64; PULSE 73; RESP 24; TEMP 96.9; O2SAT 97
[2016-04-08] MEDS: LITHIUM CARBONATE 300 MG TAB PO SCH ×2 (08:36→21:36)
[2016-04-08] MEDS: cloZAPine 100 MG TAB PO SCH ×2 (08:37→21:38)
[2016-04-08] MEDS: TIOTROPIUM BROMIDE 18 MCG INH INH SCH (08:37)
--- NOTE | 2016-04-08 09:40 | HHI.PR ---
Subjective Remarks Patient seen and examined today. Patient denies any new complaints. No change in clinical status. Objective Vitals Vital Signs Date Time Temp Pulse Resp B/P Pulse Ox O2 Delivery O2 Flow Rate FiO2 04/08/16 08:00 96.9 73 24 124/64 97 04/07/16 21:03 98.9 70 20 103/61 96 I/O 04/07/16 04/07/16 04/07/16 04/08/16 04/08/16 04/08/16 07:00 15:00 23:00 07:00 15:00 23:00 Intake Total 1440 ml Balance 1440 ml Intake Oral 1440 ml # Voids 3 3 2 # Bowel Movements 0 1 Objective Remarks GENERAL: Well-developed, well-nourished, in no acute distress. alert, orientated to [facility], person, not orientated to year, month, state HEENT: Head is normocephalic without any lesions or masses noted. Facial features are symmetric. Eyes: Pupils equal round reactive to light. Extraocular muscles are intact. Conjunctivae were clear NECK: Supple without any masses. Trachea midline no deviation. No JVD, CARDIAC: Regular rhythm, regular rate. S1/S2 are heard. No murmurs gallops or rubs. LUNGS: Clear to auscultation bilaterally. No wheeze, rhonchi or rales. No use of accessory muscles on inspiration or expiration. ABDOMEN: Soft, nontender. Nondistended. Bowel sounds heard in all 4 quadrants. No organomegaly or masses. Negative rebound, negative guarding EXTREMITIES: No edema, pulses are equal bilaterally. No cyanosis or clubbing NEUROLOGY: Mood and affect appear appropriate. Cranial nerves II through XII grossly intact. Moving all extremities, speech is clear Procedures none Urinary Catheter: No Vascular Central Line Catheter: No A/P Assessment and Plan 60-year-old male with a history of asthma, schizoaffective disorder, COPD presented to the ED with altered mental status from his [facility] who refused to take him back. ASSISTED reporting increasing confusion despite lactulose use. Records reviewed. Encephalopathy: baseline. -Chest x-ray 03/02 personally reviewed with scarring at the right lung base, but no acute infection. -Head CT 03/06 without acute abnormality. -UA 03/07 without infection. -Normal ammonia level on 11/17 s/p lactulose treatment. -TSH 1.170 on 03/02 yet 3.780 on 03/06. Free T3, free T4 were normal -Physical therapy indicates that there is no need for continued physical therapy at this time. Physical therapy has been discontinued Malnutrition: Evidenced by low BMI and physical exam. -Consulted teacher citizenship, started patient on Regular diet with Ensure Enlive on all meal trays. Banking Consultant following. -Prealbumin 22 COPD: chronic, does not appear to be in exacerbation. Bipolar disorder: Continue home meds including [place] and Clozaril. [place] level in the therapeutic range. -Monitor for neutropenia and lithium level periodically. DVT prophylaxis: Low risk, patient ambulating Discharge Planning 04/01/16 PATIENTS SISTER CALLED TODAY AND LEFT MESSAGE FOR C/M TO CALL [phone] SHE REQUESTED A CALL BACK ABOUT HER SISTER PROGRESS AND NEED TO TRANSFER HER CLOSE TO WHERE SHE LIVES. MR DARA PHOENIX FROM [facility] AND [place] PRESENTED TODAY TO DO EVULATION ON PATIENT , HE WILL INFORM C./M IF PATIENT WILL BE ACCEPTED TO THEIR FACILITY AFTER RECORDS REVIEWED AND INSURANCE AGREE TO D/C PLAN. Surya Neely Apr 08, 2016 09:40
[2016-04-08 20:00] VITALS: BP 112/62; PULSE 77; RESP 16; TEMP 98.3; O2SAT 94
[2016-04-09 08:00] VITALS: BP 122/81; PULSE 81; RESP 19; TEMP 97.6; O2SAT 96
[2016-04-09] MEDS: LITHIUM CARBONATE 300 MG TAB PO SCH ×2 (08:09→21:05)
[2016-04-09] MEDS: cloZAPine 100 MG TAB PO SCH ×2 (08:10→21:00)
[2016-04-09] MEDS: TIOTROPIUM BROMIDE 18 MCG INH INH SCH (08:10)
--- NOTE | 2016-04-09 15:18 | HHI.PR ---
Subjective Remarks Patient states he is tired. No other acute complaints. No change clinical status. Objective Vitals Vital Signs Date Time Temp Pulse Resp B/P Pulse Ox O2 Delivery O2 Flow Rate FiO2 04/09/16 08:00 97.6 81 19 122/81 96 04/08/16 20:00 98.3 77 16 112/62 94 I/O 04/08/16 04/08/16 04/08/16 04/09/16 04/09/16 04/09/16 06:59 14:59 22:59 06:59 14:59 22:59 Intake Total 1260 ml 2030 ml 750 ml Balance 1260 ml 2030 ml 750 ml Intake Oral 1260 ml 2030 ml 750 ml # Voids 2 2 5 5 Objective Remarks GENERAL: Tall thin appearing patient in no apparent distress. SKIN: Warm and dry. HEAD: Atraumatic. Normocephalic. EYES: Pupils equal and round. ENT: MMM. CARDIOVASCULAR: Regular rate and rhythm. RESPIRATORY: Limited exam. No accessory muscle use. Clear to auscultation. Breath sounds equal bilaterally. GASTROINTESTINAL: Abdomen soft, non-tender, nondistended. NEUROLOGICAL: Awake and alert. Procedures none Urinary Catheter: No Vascular Central Line Catheter: No A/P Problem List: (1) Encephalopathy ICD Code: G93.40 Status: Acute (2) Malnutrition ICD Code: E46 Status: Chronic (3) Leukocytosis ICD Code: D72.829 Status: Resolved (4) COPD (chronic obstructive pulmonary disease) ICD Code: J44.9 Status: Chronic Assessment and Plan 60-year-old male with a history of asthma, schizoaffective disorder, COPD presented to the ED with altered mental status from his [facility] who refused to take him back. [facility] reporting increasing confusion despite lactulose use. Transferred to for intermodal truck driver care pending placement. Encephalopathy: Ammonia level on 03/05/16 was 68, on lactulose at [facility]. Presented back to ED on 03/06 with increasing confusion, Ammonia level 16. Has not been on lactulose since admission, and ammonia now wnl. No history of liver cirrhosis. Patient disoriented, likely at baseline. -Chest x-ray 03/02 personally reviewed with scarring at the right lung base, but no acute infection. -Head CT 03/06 without acute abnormality. -UA 03/07 without infection. -Normal ammonia level on 03/14 s/p lactulose treatment. -TSH 1.170 on 03/02 yet 3.780 on 03/06. Free T3 and T4 normal. -Physical therapy indicates that there is no need for continued physical therapy at this time. Physical therapy has been discontinued Leukocytosis: Resolved. UA negative. Malnutrition: Evidenced by low BMI and physical exam. -Consulted diesel bus mechanic, started patient on Regular diet with Ensure Enlive on all meal trays. Company Secretary following. COPD: chronic, does not appear to be in exacerbation. -Continue Spiriva and DuoNeb's q4h prn. Bipolar disorder: Continue home meds including [place] and Clozaril. [place] level in the therapeutic range. -Monitor for neutropenia and lithium level periodically. DVT prophylaxis: Low risk, patient ambulating. Lovenox was discontinued. Discharge Planning Patient's sisters would like patient transferred to [place], attempting to get into [facility] home. CM still looking into local placement. Jazmin Lino Apr 09, 2016 15:18 Stacey Leonard DO Apr 10, 2016 01:45
[2016-04-09 20:00] VITALS: BP 115/60; PULSE 67; RESP 18; TEMP 96.5; O2SAT 95
[2016-04-10 08:00] VITALS: BP 117/67; PULSE 68; RESP 20; TEMP 97.6; O2SAT 98
[2016-04-10] MEDS: cloZAPine 100 MG TAB PO SCH ×2 (09:06→21:54)
[2016-04-10] MEDS: LITHIUM CARBONATE 300 MG TAB PO SCH ×2 (09:07→21:54)
[2016-04-10] MEDS: TIOTROPIUM BROMIDE 18 MCG INH INH SCH (09:07)
--- NOTE | 2016-04-10 14:44 | HHI.PR ---
Subjective Remarks No acute complaints. No change clinical status. Objective Vitals Vital Signs Date Time Temp Pulse Resp B/P Pulse Ox O2 Delivery O2 Flow Rate FiO2 04/10/16 08:00 97.6 68 20 117/67 98 04/09/16 20:00 96.5 67 18 115/60 95 I/O 04/09/16 04/09/16 04/09/16 04/10/16 04/10/16 04/10/16 07:00 15:00 23:00 07:00 15:00 23:00 Intake Total 750 ml 850 ml Balance 750 ml 850 ml Intake Oral 750 ml 850 ml # Voids 5 3 1 Objective Remarks GENERAL: Tall thin appearing patient in no apparent distress sitting in the day room. SKIN: Warm and dry. HEAD: Atraumatic. Normocephalic. EYES: Pupils equal and round. ENT: MMM. CARDIOVASCULAR: Regular rate and rhythm. RESPIRATORY: No accessory muscle use. Clear to auscultation. Breath sounds equal bilaterally. GASTROINTESTINAL: Abdomen soft, non-tender, nondistended. NEUROLOGICAL: Awake and alert. Normal speech. ~4/5 equal strategic communications specialist strength bilaterally. 5/5 strength in bilateral quadriceps. Procedures none Urinary Catheter: No Vascular Central Line Catheter: No A/P Problem List: (1) Encephalopathy ICD Code: G93.40 Status: Acute (2) Malnutrition ICD Code: E46 Status: Chronic (3) Leukocytosis ICD Code: D72.829 Status: Resolved (4) COPD (chronic obstructive pulmonary disease) ICD Code: J44.9 Status: Chronic Assessment and Plan 60-year-old male with a history of asthma, schizoaffective disorder, COPD presented to the ED with altered mental status from his [facility] who refused to take him back. [facility] reporting increasing confusion despite lactulose use. Transferred to for terminal makeup operator care pending placement. Encephalopathy: Ammonia level on 03/05/16 was 68, on lactulose at [facility]. Presented back to ED on 03/06 with increasing confusion, Ammonia level 16. Has not been on lactulose since admission, and ammonia now wnl. No history of liver cirrhosis. Patient disoriented, likely at baseline. -Chest x-ray 03/02 personally reviewed with scarring at the right lung base, but no acute infection. -Head CT 03/06 without acute abnormality. -UA 03/07 without infection. -Normal ammonia level on 03/14 s/p lactulose treatment. -TSH 1.170 on 03/02 yet 3.780 on 03/06. Free T3 and T4 normal. -Physical therapy indicates that there is no need for continued physical therapy at this time. Physical therapy has been discontinued Leukocytosis: Resolved. UA negative. Malnutrition: Evidenced by low BMI and physical exam. -Consulted wildlife removal specialist, started patient on Regular diet with Ensure Enlive on all meal trays. Ruffling Hemmer Automatic following. COPD: chronic, does not appear to be in exacerbation. -Continue Spiriva and DuoNeb's q4h prn. Bipolar disorder: Continue home meds including [place] and Clozaril. [place] level in the therapeutic range. -Monitor for neutropenia and lithium level periodically. DVT prophylaxis: Low risk, patient ambulating. Lovenox was discontinued. Discharge Planning Patient's sisters would like patient transferred to [place], attempting to get into [facility] home. CM still looking into local placement. Jazmin Lino Apr 10, 2016 14:44 Stacey Leonard DO Apr 11, 2016 00:56
[2016-04-10 20:00] VITALS: BP 118/67; PULSE 85; RESP 18; TEMP 97.3; O2SAT 95
[2016-04-11 08:00] VITALS: BP 111/64; PULSE 69; RESP 17; TEMP 98.4; O2SAT 94
[2016-04-11] MEDS: cloZAPine 100 MG TAB PO SCH ×2 (08:20→22:16)
[2016-04-11] MEDS: LITHIUM CARBONATE 300 MG TAB PO SCH ×2 (08:20→22:16)
[2016-04-11] MEDS: TIOTROPIUM BROMIDE 18 MCG INH INH SCH (10:26)
--- NOTE | 2016-04-11 10:55 | HHI.PR ---
Subjective Remarks No acute complaints. No change in clinical status. Objective Vitals Vital Signs Date Time Temp Pulse Resp B/P Pulse Ox O2 Delivery O2 Flow Rate FiO2 04/11/16 08:00 98.4 69 17 111/64 94 04/10/16 20:00 97.3 85 18 118/67 95 I/O 04/10/16 04/10/16 04/10/16 04/11/16 04/11/16 04/11/16 07:00 15:00 23:00 07:00 15:00 23:00 Intake Total 1100 ml Balance 1100 ml Intake Oral 1100 ml # Voids 1 4 1 # Bowel Movements 0 Objective Remarks GENERAL: Tall thin appearing patient in no apparent distress sitting in the day room. CARDIOVASCULAR: Regular rate and rhythm. RESPIRATORY: No accessory muscle use. Breath sounds diminished throughout although it does not appear that patient is taking deep breaths. GASTROINTESTINAL: Abdomen soft, non-tender, nondistended. NEUROLOGICAL: Awake and alert. Normal speech. Procedures none Urinary Catheter: No Vascular Central Line Catheter: No A/P Problem List: (1) Encephalopathy ICD Code: G93.40 Status: Acute (2) Malnutrition ICD Code: E46 Status: Chronic (3) Leukocytosis ICD Code: D72.829 Status: Resolved (4) COPD (chronic obstructive pulmonary disease) ICD Code: J44.9 Status: Chronic Assessment and Plan 60-year-old male with a history of asthma, schizoaffective disorder, COPD presented to the ED with altered mental status from his [facility] who refused to take him back. [facility] reporting increasing confusion despite lactulose use. Transferred to for halfway care pending placement. Encephalopathy: Ammonia level on 03/05/16 was 68, on lactulose at [facility]. Presented back to ED on 03/06 with increasing confusion, Ammonia level 16. Has not been on lactulose since admission, and ammonia now wnl. No history of liver cirrhosis. Patient disoriented, likely at baseline. -Chest x-ray 03/02 with scarring at the right lung base, but no acute infection. -Head CT 03/06 without acute abnormality. -UA 03/07 without infection. -Normal ammonia level on 03/14 s/p lactulose treatment. -TSH 1.170 on 03/02 yet 3.780 on 03/06. Free T3 and T4 normal. -Physical therapy indicates that there is no need for continued physical therapy at this time. Physical therapy has been discontinued Leukocytosis: Resolved. UA negative. Malnutrition: Evidenced by low BMI and physical exam. Weight has improved since admission. -Consulted geometry tutor; recommends to continue Ensure Enlive tid and double portions/protein with meals COPD: chronic, does not appear to be in exacerbation. -Continue Spiriva and DuoNeb's q4h prn. Bipolar disorder: Continue home meds including [place] and Clozaril. [place] level in the therapeutic range. -Monitor for neutropenia and check lithium level periodically. DVT prophylaxis: Low risk, patient ambulating. Lovenox was discontinued. Discharge Planning Patient's sisters would like patient transferred to [place], attempting to get into [facility] home. CM still looking into local placement. Jazmin Lino Apr 11, 2016 10:55 am Stacey Leonard DO Apr 11, 2016 6:43 pm
[2016-04-11 20:00] VITALS: BP 104/49; PULSE 71; RESP 21; TEMP 99.3; O2SAT 94
[2016-04-12 08:00] VITALS: BP 118/72; PULSE 78; RESP 18; TEMP 97.6; O2SAT 95
[2016-04-12] MEDS: TIOTROPIUM BROMIDE 18 MCG INH INH SCH (08:29)
[2016-04-12] MEDS: LITHIUM CARBONATE 300 MG TAB PO SCH ×2 (08:30→20:42)
[2016-04-12] MEDS: cloZAPine 100 MG TAB PO SCH ×2 (08:30→20:41)
--- NOTE | 2016-04-12 10:04 | HHI.PR ---
Subjective Remarks F/u for encephalopathy. No acute complaints. Objective Vitals Vital Signs Date Time Temp Pulse Resp B/P Pulse Ox O2 Delivery O2 Flow Rate FiO2 04/12/16 08:00 97.6 78 18 118/72 95 04/11/16 20:00 99.3 71 21 104/49 94 I/O 04/11/16 04/11/16 04/11/16 04/12/16 04/12/16 04/12/16 07:00 15:00 23:00 07:00 15:00 23:00 Intake Total 720 ml Balance 720 ml Intake Oral 720 ml # Voids 5 # Bowel Movements 1 Objective Remarks GENERAL: Tall thin appearing patient in no apparent distress sitting in the day room. CARDIOVASCULAR: Regular rate and rhythm. RESPIRATORY: No accessory muscle use. Breath sounds diminished throughout as patient does not take deep breaths. GASTROINTESTINAL: Abdomen soft, non-tender, nondistended. NEUROLOGICAL: Awake and alert. Normal speech. Difficulty following commands. Procedures none Urinary Catheter: No Vascular Central Line Catheter: No A/P Problem List: (1) Encephalopathy ICD Code: G93.40 Status: Acute (2) Malnutrition ICD Code: E46 Status: Chronic (3) Leukocytosis ICD Code: D72.829 Status: Resolved (4) COPD (chronic obstructive pulmonary disease) ICD Code: J44.9 Status: Chronic Assessment and Plan 60-year-old male with a history of asthma, schizoaffective disorder, COPD presented to the ED with altered mental status from his [facility] who refused to take him back. [facility] reporting increasing confusion despite lactulose use. Transferred to [place] [facility] care pending placement. Encephalopathy: Ammonia level on 03/05/16 was 68, on lactulose at [facility]. Presented back to ED on 03/06 with increasing confusion, Ammonia level 16. Has not been on lactulose since admission, and ammonia now wnl. No history of liver cirrhosis. Has difficulty following commands. -Chest x-ray 03/02 with scarring at the right lung base, but no acute infection. -Head CT 03/06 without acute abnormality. -UA 03/07 without infection. -Normal ammonia level on 03/14 s/p lactulose treatment. -TSH 1.170 on 03/02 yet 3.780 on 03/06. Free T3 and T4 normal. -Physical therapy indicates that there is no need for continued physical therapy at this time. Physical therapy has been discontinued -Patient has not had a cognitive evaluation by speech therapy on this hospitalization, will order. Leukocytosis: Resolved. UA negative. Malnutrition: Evidenced by low BMI and physical exam. Weight has improved since admission. -Consulted morgue attendant; recommends to continue Ensure Enlive tid and double portions/protein with meals COPD: chronic, does not appear to be in exacerbation. -Continue Spiriva and DuoNeb's q4h prn. Bipolar disorder: Continue home meds including [place] and Clozaril. [place] level in the therapeutic range. -Monitor for neutropenia and check lithium level periodically. DVT prophylaxis: Low risk, patient ambulating. Lovenox was discontinued. Discharge Planning Patient's sisters would like patient transferred to [place], attempting to get into [facility] home. CM still looking into local placement. Jazmin Lino Apr 12, 2016 10:04
[2016-04-12 20:00] VITALS: BP 116/65; PULSE 72; RESP 20; TEMP 97.1; O2SAT 94
[2016-04-13 08:00] VITALS: BP 120/71; PULSE 76; RESP 20; TEMP 96.7; O2SAT 93
[2016-04-13] MEDS: cloZAPine 100 MG TAB PO SCH ×2 (08:03→21:21)
[2016-04-13] MEDS: TIOTROPIUM BROMIDE 18 MCG INH INH SCH (08:03)
[2016-04-13] MEDS: LITHIUM CARBONATE 300 MG TAB PO SCH ×2 (09:00→21:21)
--- NOTE | 2016-04-13 09:50 | HHI.PR ---
Subjective Remarks F/u for encephalopathy. No acute complaints. Objective Vitals Vital Signs Date Time Temp Pulse Resp B/P Pulse Ox O2 Delivery O2 Flow Rate FiO2 04/13/16 08:00 96.7 76 20 120/71 93 04/12/16 20:00 97.1 72 20 116/65 94 I/O 04/12/16 04/12/16 04/12/16 04/13/16 04/13/16 04/13/16 07:00 15:00 23:00 07:00 15:00 23:00 Intake Total 620 ml 960 ml Balance 620 ml 960 ml Intake Oral 620 ml 960 ml # Voids 2 # Bowel Movements 0 Objective Remarks GENERAL: Tall thin appearing patient in no apparent distress sitting in the day room. CARDIOVASCULAR: Regular rate and rhythm. RESPIRATORY: No accessory muscle use. CTAB. GASTROINTESTINAL: Abdomen soft, non-tender, nondistended. No hepatomegaly. NEUROLOGICAL: Awake and alert. Normal speech. Difficulty following commands. Witnessed to be ambulating without issue. Procedures none Urinary Catheter: No Vascular Central Line Catheter: No A/P Problem List: (1) Encephalopathy ICD Code: G93.40 Status: Acute (2) Malnutrition ICD Code: E46 Status: Chronic (3) Leukocytosis ICD Code: D72.829 Status: Resolved (4) COPD (chronic obstructive pulmonary disease) ICD Code: J44.9 Status: Chronic Assessment and Plan 60-year-old male with a history of asthma, schizoaffective disorder, COPD presented to the ED with altered mental status from his [facility] who refused to take him back. [facility] reporting increasing confusion despite lactulose use. Transferred to for senior care care pending placement. Encephalopathy: Ammonia level on 03/05/16 was 68, on lactulose at [facility]. Presented back to ED on 03/06 with increasing confusion, Ammonia level 16. Has not been on lactulose since admission, and ammonia now wnl. No history of liver cirrhosis. Has difficulty following commands. -Chest x-ray 03/02 with scarring at the right lung base, but no acute infection. -Head CT 03/06 without acute abnormality. -UA 03/07 without infection. -Normal ammonia level on 03/14 s/p lactulose treatment. -TSH 1.170 on 03/02 yet 3.780 on 03/06. Free T3 and T4 normal. -Physical therapy indicates that there is no need for continued physical therapy at this time. Physical therapy has been discontinued -Speech therapy evaluated patient on 04/12. MOCA score 8/30 indicating severe cognitive impairment, which may be his baseline. ST following. Leukocytosis: Resolved. UA negative. Malnutrition: Evidenced by low BMI and physical exam. Weight has improved since admission. -Consulted thickener operator; recommends to continue Ensure Enlive tid and double portions/protein with meals COPD: chronic, does not appear to be in exacerbation. -Continue Spiriva and DuoNeb's q4h prn. Bipolar disorder: Continue home meds including [place] and Clozaril. [place] level in the therapeutic range on 03/14. -Monitor for neutropenia periodically due to Clozaril use. AM CBC ordered. -Check lithium level periodically. AM [place] level ordered. DVT prophylaxis: Low risk, patient ambulating. Lovenox was discontinued. Discharge Planning Patient's sisters would like patient transferred to [place], attempting to get into [facility] home. CM still looking into local placement. Jazmin Lino Apr 13, 2016 09:50
[2016-04-13 20:00] VITALS: BP 112/61; PULSE 65; RESP 20; TEMP 98.4; O2SAT 95
[2016-04-14 06:53] LABS: AUTOMATED NEUTROPHIL # 2.5 TH/MM3 (1.8-7.7); BASOPHIL % 0.4 % (0.0-2.0); EOSINOPHIL # 0.2 TH/MM3 (0-0.4); EOSINOPHIL % 5.1 % (0.0-4.0); HEMATOCRIT 36.3 % (39.0-51.0); HEMO FLAGS DIFF FINAL; LYMPH % 26.7 % (9.0-44.0); LYMPHOCYTE # 1.3 TH/MM3 (1.0-4.8); MEAN CELL VOLUME 92.4 FL (80.0-100.0); MEAN CORPUSCULAR HEMOGLOBIN 29.9 PG (27.0-34.0); MEAN CORPUSCULAR HGB CONC 32.3 % (32.0-36.0); MONO % 16.5 % (0.0-8.0); NEUT % 51.3 % (16.0-70.0); PLATELET COUNT 257 TH/MM3 (150-450); RED BLOOD COUNT 3.93 MIL/MM3 (4.50-5.90); RED CELL DISTRIBUTION WIDTH 13.3 % (11.6-17.2); WHITE BLOOD COUNT 4.8 TH/MM3 (4.0-11.0)
[2016-04-14 08:00] VITALS: BP 111/68; PULSE 77; RESP 18; TEMP 96.9; O2SAT 94
[2016-04-14] MEDS: cloZAPine 100 MG TAB PO SCH ×2 (08:22→21:40)
[2016-04-14] MEDS: TIOTROPIUM BROMIDE 18 MCG INH INH SCH (08:22)
[2016-04-14] MEDS: LITHIUM CARBONATE 300 MG TAB PO SCH ×2 (09:00→21:40)
--- NOTE | 2016-04-14 09:47 | HHI.PR ---
Subjective Remarks F/u for encephalopathy. No acute complaints. No change in clinical status. Objective Vitals Vital Signs Date Time Temp Pulse Resp B/P Pulse Ox O2 Delivery O2 Flow Rate FiO2 04/14/16 08:00 96.9 77 18 111/68 94 04/13/16 20:00 98.4 65 20 112/61 95 I/O 04/13/16 04/13/16 04/13/16 04/14/16 04/14/16 04/14/16 06:59 14:59 22:59 06:59 14:59 22:59 Intake Total 1470 ml Balance 1470 ml Intake Oral 1470 ml # Voids 6 # Bowel Movements 1 Result Diagram: 04/14/16 0550 Objective Remarks GENERAL: Thin patient in no apparent distress. Dentures on the bedside table. CARDIOVASCULAR: Regular rate and rhythm. RESPIRATORY: Limited exam. No accessory muscle use. CTAB. GASTROINTESTINAL: Abdomen soft, non-tender, nondistended. NEUROLOGICAL: Awake and alert. Normal speech. Procedures none Urinary Catheter: No Vascular Central Line Catheter: No A/P Problem List: (1) Encephalopathy ICD Code: G93.40 Status: Acute (2) Malnutrition ICD Code: E46 Status: Chronic (3) Leukocytosis ICD Code: D72.829 Status: Resolved (4) COPD (chronic obstructive pulmonary disease) ICD Code: J44.9 Status: Chronic Assessment and Plan 60-year-old male with a history of asthma, schizoaffective disorder, COPD presented to the ED with altered mental status from his [facility] who refused to take him back. [facility] reporting increasing confusion despite lactulose use. 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 Encephalopathy: Ammonia level on 03/05/16 was 68, on lactulose at [facility]. Presented back to ED on 03/06 with increasing confusion, Ammonia level 16. Has not been on lactulose since admission, and ammonia now wnl. No history of liver cirrhosis. Has difficulty following commands. -Chest x-ray 03/02 with scarring at the right lung base, but no acute infection. -Head CT 03/06 without acute abnormality. -UA 03/07 without infection. -Normal ammonia level on 03/14 s/p lactulose treatment. -TSH 1.170 on 03/02 yet 3.780 on 03/06. Free T3 and T4 normal. -Physical therapy indicates that there is no need for continued physical therapy at this time. Physical therapy has been discontinued -Speech therapy evaluated patient on 04/12. MOCA score 8/30 indicating severe cognitive impairment, which may be his baseline. ST following. Leukocytosis: Resolved. UA negative. Malnutrition: Evidenced by low BMI and physical exam. Weight has improved since admission. -Consulted ship's electronic warfare officer; recommends to continue Ensure Enlive tid and double portions/protein with meals COPD: chronic, does not appear to be in exacerbation. -Continue Spiriva and DuoNeb's q4h prn. Bipolar disorder: Continue home meds including [place] and Clozaril. -Monitor for neutropenia periodically due to Clozaril use. Neutrophils normal at 51.3% today. -Check lithium level periodically. [place] level today wnl. DVT prophylaxis: Low risk, patient ambulating. Lovenox was discontinued. Discharge Planning Patient's sisters would like patient transferred to [place], attempting to get into [facility] home. CM still looking into local placement. Jazmin Lino Apr 14, 2016 09:47
[2016-04-14 20:00] VITALS: BP 122/66; PULSE 72; RESP 20; TEMP 97.9; O2SAT 94
[2016-04-15 08:00] VITALS: BP_SYST 114; BP_SYST 76; BP_DIAS 76; PULSE 81; RESP 20; TEMP 97.3; O2SAT 93
[2016-04-15] MEDS: TIOTROPIUM BROMIDE 18 MCG INH INH SCH (08:52)
[2016-04-15] MEDS: LITHIUM CARBONATE 300 MG TAB PO SCH ×2 (08:52→20:33)
[2016-04-15] MEDS: cloZAPine 100 MG TAB PO SCH ×2 (08:53→20:33)
--- NOTE | 2016-04-15 10:55 | HHI.PR ---
Subjective Remarks F/u for encephalopathy. No acute complaints. No change in clinical status. Objective Vitals Vital Signs Date Time Temp Pulse Resp B/P Pulse Ox O2 Delivery O2 Flow Rate FiO2 04/15/16 08:00 97.3 81 20 76/ 93 04/14/16 20:00 97.9 72 20 122/66 94 I/O 04/14/16 04/14/16 04/14/16 04/15/16 04/15/16 04/15/16 07:00 15:00 23:00 07:00 15:00 23:00 Intake Total 840 ml Balance 840 ml Intake Oral 840 ml # Voids 4 # Bowel Movements 1 Result Diagram: 04/14/16 0550 Objective Remarks GENERAL: Thin patient in no apparent distress sitting in day room. CARDIOVASCULAR: Regular rate and rhythm. RESPIRATORY: No accessory muscle use. CTAB. GASTROINTESTINAL: Abdomen soft, non-tender, nondistended. NEUROLOGICAL: Awake and alert. Normal speech. Procedures none Urinary Catheter: No Vascular Central Line Catheter: No A/P Problem List: (1) Encephalopathy ICD Code: G93.40 Status: Acute (2) Malnutrition ICD Code: E46 Status: Chronic (3) Leukocytosis ICD Code: D72.829 Status: Resolved (4) COPD (chronic obstructive pulmonary disease) ICD Code: J44.9 Status: Chronic Assessment and Plan 60-year-old male with a history of asthma, schizoaffective disorder, COPD presented to the ED with altered mental status from his [facility] who refused to take him back. [facility] reporting increasing confusion despite lactulose use. 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 Encephalopathy: Ammonia level on 03/05/16 was 68, on lactulose at [facility]. Presented back to ED on 03/06 with increasing confusion, Ammonia level 16. Has not been on lactulose since admission, and ammonia now wnl. No history of liver cirrhosis. Has difficulty following commands. -Chest x-ray 03/02 with scarring at the right lung base, but no acute infection. -Head CT 03/06 without acute abnormality. -UA 03/07 without infection. -Normal ammonia level on 03/14 s/p lactulose treatment. -TSH 1.170 on 03/02 yet 3.780 on 03/06. Free T3 and T4 normal. -Physical therapy indicates that there is no need for continued physical therapy at this time. Physical therapy has been discontinued -Speech therapy evaluated patient on 04/12. MOCA score 8/30 indicating severe cognitive impairment, which may be his baseline. ST following. Leukocytosis: Resolved. UA negative. Malnutrition: Evidenced by low BMI and physical exam. Weight has improved since admission. -Consulted canceling machine operator; recommends to continue Ensure Enlive tid and double portions/protein with meals COPD: chronic, does not appear to be in exacerbation. -Continue Spiriva and DuoNeb's q4h prn. Bipolar disorder: Continue home meds including [place] and Clozaril. -Monitor for neutropenia periodically due to Clozaril use. Neutrophils normal at 51.3% on 04/14. -Check lithium level periodically. [place] level 04/14 wnl. DVT prophylaxis: Low risk, patient ambulating. Lovenox was discontinued. Discharge Planning Patient's sisters would like patient transferred to [place], attempting to get into [facility] home. CM still looking into local placement. Jazmin Lino Apr 15, 2016 10:55
[2016-04-15 20:00] VITALS: BP 109/59; PULSE 69; RESP 20; TEMP 97.8; O2SAT 97
[2016-04-16 08:00] VITALS: BP 104/63; PULSE 64; RESP 19; TEMP 97.4; O2SAT 93
[2016-04-16] MEDS: TIOTROPIUM BROMIDE 18 MCG INH INH SCH (08:45)
[2016-04-16] MEDS: cloZAPine 100 MG TAB PO SCH ×2 (08:46→20:59)
[2016-04-16] MEDS: LITHIUM CARBONATE 300 MG TAB PO SCH ×2 (08:46→21:00)
--- NOTE | 2016-04-16 11:07 | HHI.PR ---
Subjective Remarks Patient seen and examined today. Patient denies any new complaints. No change in clinical status. Objective Vitals Vital Signs Date Time Temp Pulse Resp B/P Pulse Ox O2 Delivery O2 Flow Rate FiO2 04/16/16 08:00 97.4 64 19 104/63 93 04/15/16 20:00 97.8 69 20 109/59 97 I/O 04/15/16 04/15/16 04/15/16 04/16/16 04/16/16 04/16/16 07:00 15:00 23:00 07:00 15:00 23:00 Intake Total 1200 ml 240 ml 480 ml Balance 1200 ml 240 ml 480 ml Intake Oral 1200 ml 240 ml 480 ml # Voids 7 1 2 # Bowel Movements 1 0 1 Result Diagram: 04/14/16 0550 Objective Remarks GENERAL: Well-developed, well-nourished, in no acute distress. alert, orientated to [facility], person, not orientated to year, month, state HEENT: Head is normocephalic without any lesions or masses noted. Facial features are symmetric. Eyes: Pupils equal round reactive to light. Extraocular muscles are intact. Conjunctivae were clear NECK: Supple without any masses. Trachea midline no deviation. No JVD, CARDIAC: Regular rhythm, regular rate. S1/S2 are heard. No murmurs gallops or rubs. LUNGS: Clear to auscultation bilaterally. No wheeze, rhonchi or rales. No use of accessory muscles on inspiration or expiration. ABDOMEN: Soft, nontender. Nondistended. Bowel sounds heard in all 4 quadrants. No organomegaly or masses. Negative rebound, negative guarding EXTREMITIES: No edema, pulses are equal bilaterally. No cyanosis or clubbing NEUROLOGY: Mood and affect appear appropriate. Cranial nerves II through XII grossly intact. Moving all extremities, speech is clear Procedures none Urinary Catheter: No Vascular Central Line Catheter: No A/P Assessment and Plan 60-year-old male with a history of asthma, schizoaffective disorder, COPD presented to the ED with altered mental status from his [facility] who refused to take [facility] back[facility] reporting increasing confusion despite lactulose use. Records reviewed. Encephalopathy: baseline. -Chest x-ray 03/02 personally reviewed with scarring at the right lung base, but no acute infection. -Head CT 03/06 without acute abnormality. -UA 03/07 without infection. -Normal ammonia level on 03/14 s/p lactulose treatment. -TSH 1.170 on 03/02 yet 3.780 on 03/06. Free T3, free T4 were normal -Physical therapy indicates that there is no need for continued physical therapy at this time. Physical therapy has been discontinued Malnutrition: Evidenced by low BMI and physical exam. -Consulted service writer advisor, started patient on Regular diet with Ensure Enlive on all meal trays. Clinical Psychology Professor following. -Prealbumin 22 COPD: chronic, does not appear to be in exacerbation. Bipolar disorder: Continue home meds including [place] and Clozaril. [place] level in the therapeutic range. -Monitor for neutropenia and lithium level periodically. DVT prophylaxis: Low risk, patient ambulating Discharge Planning Patient's sisters would like patient transferred to [place], attempting to get into [facility]. CM still looking into local placement. 04/15/16 3456 SPOKE WITH PATIENTS DCF CASE WORKR THIS AM AND REQUESTED SHE FAX FINANCIAL INFORMATION [facility] ASSIST WITH CONSIDERATION IN PLACEMNT THERE IN [place] CLOSE TO FAMILY. SHE WILL FAXE REQUEST IN AM. WILL F/U POST THIS FOR UPDATE KENDRICK LOJA LPN/BAIRON/CHARGE Surya Neely Apr 16, 2016 11:07
[2016-04-16 20:30] VITALS: BP 107/63; PULSE 71; RESP 20; TEMP 97.6; O2SAT 98
[2016-04-17 08:00] VITALS: BP 108/62; PULSE 62; RESP 20; TEMP 97; O2SAT 96
--- NOTE | 2016-04-17 08:53 | HHI.PR ---
Subjective Remarks Patient seen and examined today. Patient denies any new complaints. No change in clinical status. Objective Vitals Vital Signs Date Time Temp Pulse Resp B/P Pulse Ox O2 Delivery O2 Flow Rate FiO2 04/17/16 08:00 97.0 62 20 108/62 96 04/16/16 20:30 97.6 71 20 107/63 98 I/O 04/16/16 04/16/16 04/16/16 04/17/16 04/17/16 04/17/16 07:00 15:00 23:00 07:00 15:00 23:00 Intake Total 480 ml 920 ml Balance 480 ml 920 ml Intake Oral 480 ml 920 ml # Voids 2 7 # Bowel Movements 1 2 Result Diagram: 04/14/16 0550 Objective Remarks GENERAL: Well-developed, well-nourished, in no acute distress. alert, orientated to [facility], person, not orientated to year, month, state HEENT: Head is normocephalic without any lesions or masses noted. Facial features are symmetric. Eyes: Pupils equal round reactive to light. Extraocular muscles are intact. Conjunctivae were clear NECK: Supple without any masses. Trachea midline no deviation. No JVD, CARDIAC: Regular rhythm, regular rate. S1/S2 are heard. No murmurs gallops or rubs. LUNGS: Clear to auscultation bilaterally. No wheeze, rhonchi or rales. No use of accessory muscles on inspiration or expiration. ABDOMEN: Soft, nontender. Nondistended. Bowel sounds heard in all 4 quadrants. No organomegaly or masses. Negative rebound, negative guarding EXTREMITIES: No edema, pulses are equal bilaterally. No cyanosis or clubbing NEUROLOGY: Mood and affect appear appropriate. Cranial nerves II through XII grossly intact. Moving all extremities, speech is clear Procedures none Urinary Catheter: No Vascular Central Line Catheter: No A/P Assessment and Plan 60-year-old male with a history of asthma, schizoaffective disorder, COPD presented to the ED with altered mental status from his [facility] who refused to take him back. [facility] reporting increasing confusion despite lactulose use. Records reviewed. Encephalopathy: baseline. -Chest x-ray 03/02 personally reviewed with scarring at the right lung base, but no acute infection. -Head CT 03/06 without acute abnormality. -UA 03/07 without infection. -Normal ammonia level on 03/14 s/p lactulose treatment. -TSH 1.170 on 03/02 yet 3.780 on 03/06. Free T3, free T4 were normal -Physical therapy indicates that there is no need for continued physical therapy at this time. Physical therapy has been discontinued Malnutrition: Evidenced by low BMI and physical exam. -Consulted assembly manager, started patient on Regular diet with Ensure Enlive on all meal trays. Transportation Manager following. -Prealbumin 22 COPD: chronic, does not appear to be in exacerbation. Bipolar disorder: Continue home meds including [place] and Clozaril. [place] level in the therapeutic range. -Monitor for neutropenia and lithium level periodically. DVT prophylaxis: Low risk, patient ambulating Discharge Planning Patient's sisters would like patient transferred to [place], attempting to get into [facility]. CM still looking into local placement. 04/15/16 8954 SPOKE WITH PATIENTS DCF CASE WORKR THIS AM AND REQUESTED SHE FAX FINANCIAL INFORMATION [facility] WITH CONSIDERATION IN PLACEMNT THERE IN [place] CLOSE TO FAMILY. SHE WILL FAXE REQUEST IN AM. WILL F/U POST THIS FOR UPDATE KENDRICK LOJA LPN/BIARON/Surya [place] Apr 17, 2016 08:53
[2016-04-17] MEDS: cloZAPine 100 MG TAB PO SCH ×2 (09:34→20:37)
[2016-04-17] MEDS: TIOTROPIUM BROMIDE 18 MCG INH INH SCH (09:35)
[2016-04-17] MEDS: LITHIUM CARBONATE 300 MG TAB PO SCH ×2 (09:35→20:38)
[2016-04-17 20:15] VITALS: BP 139/69; PULSE 77; RESP 18; TEMP 96.8; O2SAT 96
[2016-04-18 08:00] VITALS: BP 113/67; PULSE 80; RESP 18; TEMP 98.2; O2SAT 97
[2016-04-18] MEDS: LITHIUM CARBONATE 300 MG TAB PO SCH ×2 (08:31→20:27)
[2016-04-18] MEDS: cloZAPine 100 MG TAB PO SCH ×2 (08:32→20:26)
--- NOTE | 2016-04-18 09:22 | HHI.PR ---
Subjective Remarks Patient seen and examined today. Patient denies any new complaints. No change in clinical status. Objective Vitals Vital Signs Date Time Temp Pulse Resp B/P Pulse Ox O2 Delivery O2 Flow Rate FiO2 04/17/16 20:15 96.8 77 18 139/69 96 I/O 04/17/16 04/17/16 04/17/16 04/18/16 04/18/16 04/18/16 07:00 15:00 23:00 07:00 15:00 23:00 Intake Total 1320 ml 1110 ml 360 ml Balance 1320 ml 1110 ml 360 ml Intake Oral 1320 ml 1110 ml 360 ml # Voids 5 3 Result Diagram: 04/14/16 0550 Objective Remarks GENERAL: Well-developed, well-nourished, in no acute distress. alert, orientated to [facility], person, not orientated to year, month, state HEENT: Head is normocephalic without any lesions or masses noted. Facial features are symmetric. Eyes: Pupils equal round reactive to light. Extraocular muscles are intact. Conjunctivae were clear NECK: Supple without any masses. Trachea midline no deviation. No JVD, CARDIAC: Regular rhythm, regular rate. S1/S2 are heard. No murmurs gallops or rubs. LUNGS: Clear to auscultation bilaterally. No wheeze, rhonchi or rales. No use of accessory muscles on inspiration or expiration. ABDOMEN: Soft, nontender. Nondistended. Bowel sounds heard in all 4 quadrants. No organomegaly or masses. Negative rebound, negative guarding EXTREMITIES: No edema, pulses are equal bilaterally. No cyanosis or clubbing NEUROLOGY: Mood and affect appear appropriate. Cranial nerves II through XII grossly intact. Moving all extremities, speech is clear Procedures none Urinary Catheter: No Vascular Central Line Catheter: No A/P Assessment and Plan 60-year-old male with a history of asthma, schizoaffective disorder, COPD presented to the ED with altered mental status from his [facility] who refused to take him back. [facility] reporting increasing confusion despite lactulose use. Records reviewed. Encephalopathy: baseline. -Chest x-ray 03/02 personally reviewed with scarring at the right lung base, but no acute infection. -Head CT 03/06 without acute abnormality. -UA 03/07 without infection. -Normal ammonia level on 03/14 s/p lactulose treatment. -TSH 1.170 on 03/02 yet 3.780 on 03/06. Free T3, free T4 were normal -Physical therapy indicates that there is no need for continued physical therapy at this time. Physical therapy has been discontinued Malnutrition: Evidenced by low BMI and physical exam. -Consulted utility worker forge, started patient on Regular diet with Ensure Enlive on all meal trays. Construction And Maintenance Inspector following. -Prealbumin 22 COPD: chronic, does not appear to be in exacerbation. Bipolar disorder: Continue home meds including [place] and Clozaril. [place] level in the therapeutic range. -Monitor for neutropenia and lithium level periodically. DVT prophylaxis: Low risk, patient ambulating Discharge Planning Patient's sisters would like patient transferred to [place], attempting to get into [facility]. CM still looking into local placement. 04/18/16 0852 WAS REQUESTED BY THE [facility] TO SEND ADDITIONAL FINANCIAL INFO NEED FOR FINAL DETERMINATION. SPOKE WITH PATIENT'S DCF [employer] FLOOR SANDER AND SHE HAS NEEDED INFO AND SHE SENT IT REQUESTED YESTERDAY. WILL F/U WITH SNF AND FAMILY FOR OUTCOME KENDRICK CRAIN MUSHROOM SPAWN MAKER/CM/CHARGE Surya Neely Apr 18, 2016 09:22
[2016-04-18] MEDS: TIOTROPIUM BROMIDE 18 MCG INH INH SCH (09:51)
[2016-04-18 20:00] VITALS: BP 112/64; PULSE 75; RESP 20; TEMP 97.7; O2SAT 93
[2016-04-19 08:00] VITALS: BP 95/60; PULSE 68; RESP 20; TEMP 97.5; O2SAT 94
[2016-04-19] MEDS: TIOTROPIUM BROMIDE 18 MCG INH INH SCH (08:31)
[2016-04-19] MEDS: cloZAPine 100 MG TAB PO SCH ×2 (08:31→19:50)
[2016-04-19] MEDS: LITHIUM CARBONATE 300 MG TAB PO SCH ×2 (08:31→19:51)
--- NOTE | 2016-04-19 14:28 | HHI.PR ---
Subjective Remarks Patient seen and examined today. Patient denies any new complaints. No change in clinical status. Objective Vitals Vital Signs Date Time Temp Pulse Resp B/P Pulse Ox O2 Delivery O2 Flow Rate FiO2 04/19/16 08:00 97.5 68 20 95/60 94 04/18/16 20:00 97.7 75 20 112/64 93 I/O 04/18/16 04/18/16 04/18/16 04/19/16 04/19/16 04/19/16 07:00 15:00 23:00 07:00 15:00 23:00 Intake Total 360 ml 600 ml 780 ml Balance 360 ml 600 ml 780 ml Intake Oral 360 ml 600 ml 780 ml # Voids 3 2 # Bowel Movements 1 Objective Remarks GENERAL: Well-developed, well-nourished, in no acute distress. alert, orientated to [facility], person, not orientated to year, month, state HEENT: Head is normocephalic without any lesions or masses noted. Facial features are symmetric. Eyes: Pupils equal round reactive to light. Extraocular muscles are intact. Conjunctivae were clear NECK: Supple without any masses. Trachea midline no deviation. No JVD, CARDIAC: Regular rhythm, regular rate. S1/S2 are heard. No murmurs gallops or rubs. LUNGS: Clear to auscultation bilaterally. No wheeze, rhonchi or rales. No use of accessory muscles on inspiration or expiration. ABDOMEN: Soft, nontender. Nondistended. Bowel sounds heard in all 4 quadrants. No organomegaly or masses. Negative rebound, negative guarding EXTREMITIES: No edema, pulses are equal bilaterally. No cyanosis or clubbing NEUROLOGY: Mood and affect appear appropriate. Cranial nerves II through XII grossly intact. Moving all extremities, speech is clear Procedures none Urinary Catheter: No Vascular Central Line Catheter: No A/P Assessment and Plan 60-year-old male with a history of asthma, schizoaffective disorder, COPD presented to the ED with altered mental status from his [facility] who refused to take him back. [facility] reporting increasing confusion despite lactulose use. Records reviewed. Encephalopathy: baseline. -Chest x-ray 03/02 personally reviewed with scarring at the right lung base, but no acute infection. -Head CT 03/06 without acute abnormality. -UA 03/07 without infection. -Normal ammonia level on 03/14 s/p lactulose treatment. -TSH 1.170 on 03/02 yet 3.780 on 03/06. Free T3, free T4 were normal -Physical therapy indicates that there is no need for continued physical therapy at this time. Physical therapy has been discontinued Malnutrition: Evidenced by low BMI and physical exam. -Consulted motor grader operator, started patient on Regular diet with Ensure Enlive on all meal trays. Job Honer following. -Prealbumin 22 COPD: chronic, does not appear to be in exacerbation. Bipolar disorder: Continue home meds including [place] and Clozaril. [place] level in the therapeutic range. -Monitor for neutropenia and lithium level periodically. DVT prophylaxis: Low risk, patient ambulating Discharge Planning Patient's sisters would like patient transferred to [place], attempting to get into [facility]. CM still looking into local placement. 04/18/16 0852 WAS REQUESTED BY THE SKILLED FACILTITY [facility] TO SEND ADDITIONAL FINANCIAL INFO NEED FOR FINAL DETERMINATION. SPOKE WITH PATIENT'S DCF COBBLER APPRENTICE AND SHE HAS NEEDED INFO AND SHE SENT IT REQUESTED YESTERDAY. WILL F/U WITH SNF AND FAMILY FOR OUTCOME KENDRICK CRAIN SPOOL MAKER/CM/CHARGE 04/19/16 Case management requesting forms be filled out to indicate that the patient is unable to manage his own finances. Will consult psychiatry to evaluate for competency. Surya Neely Apr 19, 2016 14:28
[2016-04-19 20:00] VITALS: BP 120/68; PULSE 78; RESP 20; TEMP 97.3; O2SAT 96
[2016-04-20 08:00] VITALS: BP 110/73; PULSE 74; RESP 18; TEMP 96.7; O2SAT 96
[2016-04-20] MEDS: LITHIUM CARBONATE 300 MG TAB PO SCH ×2 (08:19→21:12)
[2016-04-20] MEDS: TIOTROPIUM BROMIDE 18 MCG INH INH SCH (08:19)
[2016-04-20] MEDS: cloZAPine 100 MG TAB PO SCH ×2 (08:19→21:12)
--- NOTE | 2016-04-20 10:05 | HHI.PR ---
Subjective Remarks Patient seen and examined today. Patient denies any new complaints. No change in clinical status Objective Vitals Vital Signs Date Time Temp Pulse Resp B/P Pulse Ox O2 Delivery O2 Flow Rate FiO2 04/20/16 08:00 96.7 74 18 110/73 96 04/19/16 20:00 97.3 78 20 120/68 96 I/O 04/19/16 04/19/16 04/19/16 04/20/16 04/20/16 04/20/16 07:00 15:00 23:00 07:00 15:00 23:00 Intake Total 780 ml 810 ml 240 ml Balance 780 ml 810 ml 240 ml Intake Oral 780 ml 810 ml 240 ml # Voids 2 2 3 # Bowel Movements 1 0 Objective Remarks GENERAL: Well-developed, well-nourished, in no acute distress. alert, orientated to [facility], person, not orientated to year, month, state HEENT: Head is normocephalic without any lesions or masses noted. Facial features are symmetric. Eyes: Pupils equal round reactive to light. Extraocular muscles are intact. Conjunctivae were clear NECK: Supple without any masses. Trachea midline no deviation. No JVD, CARDIAC: Regular rhythm, regular rate. S1/S2 are heard. No murmurs gallops or rubs. LUNGS: Clear to auscultation bilaterally. No wheeze, rhonchi or rales. No use of accessory muscles on inspiration or expiration. ABDOMEN: Soft, nontender. Nondistended. Bowel sounds heard in all 4 quadrants. No organomegaly or masses. Negative rebound, negative guarding EXTREMITIES: No edema, pulses are equal bilaterally. No cyanosis or clubbing NEUROLOGY: Mood and affect appear appropriate. Cranial nerves II through XII grossly intact. Moving all extremities, speech is clear Procedures none A/P Assessment and Plan 60-year-old male with a history of asthma, schizoaffective disorder, COPD presented to the ED with altered mental status from his [facility] who refused to take him back. [facility] reporting increasing confusion despite lactulose use. Records reviewed. Encephalopathy: baseline. -Chest x-ray 03/02 personally reviewed with scarring at the right lung base, but no acute infection. -Head CT 03/06 without acute abnormality. -UA 03/07 without infection. -Normal ammonia level on 03/14 s/p lactulose treatment. -TSH 1.170 on 03/02 yet 3.780 on 03/06. Free T3, free T4 were normal -Physical therapy indicates that there is no need for continued physical therapy at this time. Physical therapy has been discontinued Malnutrition: Evidenced by low BMI and physical exam. -Consulted machine shop apprentice, started patient on Regular diet with Ensure Enlive on all meal trays. Glass Tube Bender following. -Prealbumin 22 COPD: chronic, does not appear to be in exacerbation. Bipolar disorder: Continue home meds including [place] and Clozaril. [place] level in the therapeutic range. -Monitor for neutropenia and lithium level periodically. DVT prophylaxis: Low risk, patient ambulating Discharge Planning Patient's sisters would like patient transferred to [place], attempting to get into [facility]. CM still looking into local placement. 04/19/16 1330 [facility] IN [place] REQUESTED PROOF OF MEDICAID ELIGIBLITY FAXED CONFIRMATION TO RANDA SHUKLA AT [facility] PH- [phone] FAX [phone]. WILL F/U FOR FURTHER NEEDS/DETERMINATION FOR ACCEPTANCE. SPOKE WITH PATIENTS SISTER ZI ZHAO [phone] GAVE HER UPDATE ON WHAT WAS SENT. SHE IS IN DIRECT CONTACT WITH THE [facility] AND VERY ACTIVE IN ASSISTING WITH TRYING TO GET FACILITY TO ACCEPT. KENDRICK LOJA LPN/CM/CHARGE 04/19/16 Case management requesting forms be filled out to indicate that the patient is unable to manage his own finances. Will consult psychiatry to evaluate for competency. Surya Neely Apr 20, 2016 10:05
[2016-04-20 20:00] VITALS: BP 107/66; PULSE 65; RESP 20; TEMP 96.9; O2SAT 96
[2016-04-21 08:00] VITALS: BP 97/59; PULSE 64; RESP 20; TEMP 96.9; O2SAT 93
[2016-04-21] MEDS: TIOTROPIUM BROMIDE 18 MCG INH INH SCH (08:40)
[2016-04-21] MEDS: LITHIUM CARBONATE 300 MG TAB PO SCH ×2 (08:40→21:11)
[2016-04-21] MEDS: cloZAPine 100 MG TAB PO SCH ×2 (08:40→21:12)
--- NOTE | 2016-04-21 09:21 | HHI.PR ---
Subjective Remarks Patient seen and examined today. Patient denies any new complaints. No change in clinical status. Objective Vitals Vital Signs Date Time Temp Pulse Resp B/P Pulse Ox O2 Delivery O2 Flow Rate FiO2 04/21/16 08:00 96.9 64 20 97/59 93 04/20/16 20:00 96.9 65 20 107/66 96 I/O 04/20/16 04/20/16 04/20/16 04/21/16 04/21/16 04/21/16 07:00 15:00 23:00 07:00 15:00 23:00 Intake Total 240 ml 720 ml Output Total 720 ml Balance 240 ml 0 ml Intake Oral 240 ml 720 ml Output Urine Total 720 ml # Voids 3 # Bowel Movements 0 0 Objective Remarks GENERAL: Well-developed, well-nourished, in no acute distress. alert, orientated to [facility], person, not orientated to year, month, state HEENT: Head is normocephalic without any lesions or masses noted. Facial features are symmetric. Eyes: Pupils equal round reactive to light. Extraocular muscles are intact. Conjunctivae were clear NECK: Supple without any masses. Trachea midline no deviation. No JVD, CARDIAC: Regular rhythm, regular rate. S1/S2 are heard. No murmurs gallops or rubs. LUNGS: Clear to auscultation bilaterally. No wheeze, rhonchi or rales. No use of accessory muscles on inspiration or expiration. ABDOMEN: Soft, nontender. Nondistended. Bowel sounds heard in all 4 quadrants. No organomegaly or masses. Negative rebound, negative guarding EXTREMITIES: No edema, pulses are equal bilaterally. No cyanosis or clubbing NEUROLOGY: Mood and affect appear appropriate. Cranial nerves II through XII grossly intact. Moving all extremities, speech is clear Procedures none Urinary Catheter: No Vascular Central Line Catheter: No A/P Assessment and Plan 60-year-old male with a history of asthma, schizoaffective disorder, COPD presented to the ED with altered mental status from his [facility] who refused to take him back. BO[facility] reporting increasing confusion despite lactulose use. Records reviewed. Encephalopathy: baseline. -Chest x-ray 03/02 personally reviewed with scarring at the right lung base, but no acute infection. -Head CT 03/06 without acute abnormality. -UA 03/07 without infection. -Normal ammonia level on 03/14 s/p lactulose treatment. -TSH 1.170 on 03/02 yet 3.780 on 03/06. Free T3, free T4 were normal -Physical therapy indicates that there is no need for continued physical therapy at this time. Physical therapy has been discontinued Malnutrition: Evidenced by low BMI and physical exam. -Consulted riveter helper, started patient on Regular diet with Ensure Enlive on all meal trays. Tag Writer following. -Prealbumin 22 COPD: chronic, does not appear to be in exacerbation. Bipolar disorder: Continue home meds including [place] and Clozaril. [place] level in the therapeutic range. -Monitor for neutropenia and lithium level periodically. DVT prophylaxis: Low risk, patient ambulating Discharge Planning Patient's sisters would like patient transferred to [place], attempting to get into [facility]. CM still looking into local placement. 04/19/[address] [place] [address] IN [place] REQUESTED PROOF OF MEDICAID ELIGIBLITY FAXED CONFIRMATION TO RANDA SHUKLA AT [facility] PH- [phone] FAX [phone]. WILL F/U FOR FURTHER NEEDS/DETERMINATION FOR ACCEPTANCE. SPOKE WITH PATIENTS SISTER ZI ZHAO [phone] GAVE HER UPDATE ON WHAT WAS SENT. SHE IS IN DIRECT CONTACT WITH THE [facility] AND VERY ACTIVE IN ASSISTING WITH TRYING TO GET FACILITY TO ACCEPT. KENDRICK LOJA THERAPEUTIC PROGRAM WORKER/CM/CHARGE 04/19/16 Case management requesting forms be filled out to indicate that the patient is unable to manage his own finances. Will consult psychiatry to evaluate for competency. Surya Neely Apr 21, 2016 09:21
[2016-04-21 20:00] VITALS: BP 122/70; PULSE 70; RESP 20; TEMP 97.8; O2SAT 98
[2016-04-22 08:00] VITALS: BP 117/80; PULSE 76; RESP 19; TEMP 98.4; O2SAT 94
[2016-04-22] MEDS: TIOTROPIUM BROMIDE 18 MCG INH INH SCH (08:29)
[2016-04-22] MEDS: cloZAPine 100 MG TAB PO SCH ×2 (08:29→21:31)
[2016-04-22] MEDS: LITHIUM CARBONATE 300 MG TAB PO SCH ×2 (08:33→21:32)
--- NOTE | 2016-04-22 14:41 | HHI.PR ---
Subjective Remarks Patient seen and examined today with Dr. Moon, patient denies any new complaints. No change in clinical status Objective Vitals Vital Signs Date Time Temp Pulse Resp B/P Pulse Ox O2 Delivery O2 Flow Rate FiO2 04/22/16 08:00 98.4 76 19 117/80 94 04/21/16 20:00 97.8 70 20 122/70 98 I/O 04/21/16 04/21/16 04/21/16 04/22/16 04/22/16 04/22/16 06:59 14:59 22:59 06:59 14:59 22:59 Intake Total 1110 ml 1110 ml 600 ml Balance 1110 ml 1110 ml 600 ml Intake Oral 1110 ml 1110 ml 600 ml # Voids 4 3 5 # Bowel Movements 1 Objective Remarks GENERAL: Well-developed, well-nourished, in no acute distress. alert, orientated to [facility], person, not orientated to year, month, state HEENT: Head is normocephalic without any lesions or masses noted. Facial features are symmetric. Eyes: Pupils equal round reactive to light. Extraocular muscles are intact. Conjunctivae were clear NECK: Supple without any masses. Trachea midline no deviation. No JVD, CARDIAC: Regular rhythm, regular rate. S1/S2 are heard. No murmurs gallops or rubs. LUNGS: Clear to auscultation bilaterally. No wheeze, rhonchi or rales. No use of accessory muscles on inspiration or expiration. ABDOMEN: Soft, nontender. Nondistended. Bowel sounds heard in all 4 quadrants. No organomegaly or masses. Negative rebound, negative guarding EXTREMITIES: No edema, pulses are equal bilaterally. No cyanosis or clubbing NEUROLOGY: Mood and affect appear appropriate. Cranial nerves II through XII grossly intact. Moving all extremities, speech is clear Procedures none Urinary Catheter: No Vascular Central Line Catheter: No A/P Assessment and Plan 60-year-old male with a history of asthma, schizoaffective disorder, COPD presented to the ED with altered mental status from his [facility] who refused to take him back. [facility] reporting increasing confusion despite lactulose use. Records reviewed. Encephalopathy: baseline. -Chest x-ray 03/02 personally reviewed with scarring at the right lung base, but no acute infection. -Head CT 03/06 without acute abnormality. -UA 03/07 without infection. -Normal ammonia level on 03/14 s/p lactulose treatment. -TSH 1.170 on 03/02 yet 3.780 on 03/06. Free T3, free T4 were normal -Physical therapy indicates that there is no need for continued physical therapy at this time. Physical therapy has been discontinued Malnutrition: Evidenced by low BMI and physical exam. -Consulted systems auditor, started patient on Regular diet with Ensure Enlive on all meal trays. Insights Analyst following. -Prealbumin 22 COPD: chronic, does not appear to be in exacerbation. Bipolar disorder: Continue home meds including [place] and Clozaril. [place] level in the therapeutic range. -Monitor for neutropenia and lithium level periodically. DVT prophylaxis: Low risk, patient ambulating Discharge Planning Patient's sisters would like patient transferred to [place], attempting to get into [facility]. CM still looking into local placement. 04/19/16 1330 [facility] IN [place] REQUESTED PROOF OF MEDICAID ELIGIBLITY FAXED CONFIRMATION TO RANDA SHUKLA AT [facility] PH- [phone] FAX [phone]. WILL F/U FOR FURTHER NEEDS/DETERMINATION FOR ACCEPTANCE. SPOKE WITH PATIENTS SISTER ZI ZHAO [phone] GAVE HER UPDATE ON WHAT WAS SENT. SHE IS IN DIRECT CONTACT WITH THE [facility] AND VERY ACTIVE IN ASSISTING WITH TRYING TO GET FACILITY TO ACCEPT. KENDRICK LOJA LPN/CM/CHARGE 04/19/16 Case management requesting forms be filled out to indicate that the patient is unable to manage his own finances. Will consult psychiatry to evaluate for competency. Surya Neely Apr 22, 2016 14:41
[2016-04-22 20:48] VITALS: BP 128/69; PULSE 72; RESP 16; TEMP 98.1; O2SAT 97
[2016-04-23 08:00] VITALS: BP 107/60; PULSE 69; RESP 18; TEMP 98.5; O2SAT 94
[2016-04-23] MEDS: cloZAPine 100 MG TAB PO SCH ×2 (08:53→21:52)
[2016-04-23] MEDS: TIOTROPIUM BROMIDE 18 MCG INH INH SCH (08:55)
[2016-04-23] MEDS: LITHIUM CARBONATE 300 MG TAB PO SCH ×2 (08:57→21:55)
--- NOTE | 2016-04-23 10:34 | HHI.PR ---
Subjective Remarks No acute complaints. No change in clinical status. Objective Vitals Vital Signs Date Time Temp Pulse Resp B/P Pulse Ox O2 Delivery O2 Flow Rate FiO2 04/23/16 08:00 98.5 69 18 107/60 94 04/22/16 20:48 98.1 72 16 128/69 97 I/O 04/22/16 04/22/16 04/22/16 04/23/16 04/23/16 04/23/16 07:00 15:00 23:00 07:00 15:00 23:00 Intake Total 600 ml 960 ml 720 ml Output Total 250 ml Balance 600 ml 960 ml 720 ml -250 ml Intake Oral 600 ml 960 ml 720 ml Output Urine Total 250 ml # Voids 5 7 2 # Bowel Movements 1 1 Objective Remarks GENERAL: Thin patient in no apparent distress. EYES: Pupils equal and round. ENT: MMM. CARDIOVASCULAR: Regular rate and rhythm. RESPIRATORY: Limited anterior exam. No accessory muscle use. CTAB. GASTROINTESTINAL: Abdomen soft, non-tender, nondistended. NEUROLOGICAL: Awake and alert. Normal speech. Follows commands. Procedures none Urinary Catheter: No Vascular Central Line Catheter: No A/P Problem List: (1) Encephalopathy ICD Code: G93.40 Status: Acute (2) Malnutrition ICD Code: E46 Status: Chronic (3) Leukocytosis ICD Code: D72.829 Status: Resolved (4) COPD (chronic obstructive pulmonary disease) ICD Code: J44.9 Status: Chronic Assessment and Plan 60-year-old male with a history of asthma, schizoaffective disorder, COPD presented to the ED with altered mental status from his [facility] who refused to take him back. [facility] reporting increasing confusion despite lactulose use. Transferred to for superintendent container terminal care pending placement. Encephalopathy: Ammonia level on 03/05/16 was 68, on lactulose at [facility]. Presented back to ED on 03/06 with increasing confusion, Ammonia level 16. Has not been on lactulose since admission, and ammonia now wnl. No history of liver cirrhosis. Has difficulty following commands. -Chest x-ray 03/02 with scarring at the right lung base, but no acute infection. -Head CT 03/06 without acute abnormality. -UA 03/07 without infection. -Normal ammonia level on 03/14 s/p lactulose treatment. -TSH 1.170 on 03/02 yet 3.780 on 03/06. Free T3 and T4 normal. -Physical therapy indicates that there is no need for continued physical therapy at this time. Physical therapy has been discontinued -Speech therapy initially evaluated patient on 04/12. MOCA score 8/30 indicating severe cognitive impairment, which may be his baseline. ST last evaluated patient on 04/22, still with severe cognitive deficits. Leukocytosis: Resolved. UA negative. Malnutrition: Evidenced by low BMI and physical exam. Weight has improved since admission. Pre-albumin 22. -Consulted x ray examiner of aircraft; recommends to continue Ensure Enlive tid and double portions/protein with meals COPD: chronic, does not appear to be in exacerbation. -Continue Spiriva Bipolar disorder: Continue home meds including [place] and Clozaril. -Monitor for neutropenia periodically due to Clozaril use. -Check lithium level periodically. DVT prophylaxis: Low risk, patient ambulating. Lovenox was discontinued. Discharge Planning Patient's sisters would like patient transferred to [place], attempting to get into [facility], waiting for acceptance. Jazmin Lino Apr 23, 2016 10:34
[2016-04-23 20:00] VITALS: BP 128/81; PULSE 76; RESP 20; TEMP 96.2; O2SAT 95
[2016-04-24 07:44] VITALS: BP 107/66; PULSE 66; RESP 18; TEMP 98.3; O2SAT 93
[2016-04-24] MEDS: cloZAPine 100 MG TAB PO SCH ×2 (07:48→19:41)
[2016-04-24] MEDS: TIOTROPIUM BROMIDE 18 MCG INH INH SCH (07:49)
[2016-04-24] MEDS: LITHIUM CARBONATE 300 MG TAB PO SCH ×2 (07:49→19:42)
[2016-04-24 09:09] VITALS: BP 107/66; PULSE 66; RESP 18; TEMP 98.3; O2SAT 93
--- NOTE | 2016-04-24 11:51 | HHI.PR ---
Subjective Remarks No acute complaints. No change in clinical status. Objective Vitals Vital Signs Date Time Temp Pulse Resp B/P Pulse Ox O2 Delivery O2 Flow Rate FiO2 04/24/16 09:09 98.3 66 18 107/66 93 04/24/16 07:44 98.3 66 18 107/66 93 04/23/16 20:00 96.2 76 20 128/81 95 I/O 04/23/16 04/23/16 04/23/16 04/24/16 04/24/16 04/24/16 06:59 14:59 22:59 06:59 14:59 22:59 Intake Total 1560 ml 960 ml 60 ml Output Total 250 ml Balance -250 ml 1560 ml 960 ml 60 ml Intake Oral 1560 ml 960 ml 60 ml Output Urine Total 250 ml # Voids 3 4 3 # Bowel Movements 1 1 0 0 Objective Remarks GENERAL: Thin patient in no apparent distress, sleeping. CARDIOVASCULAR: Regular rate and rhythm. RESPIRATORY: Limited anterior exam. No accessory muscle use. CTAB. GASTROINTESTINAL: Abdomen soft, non-tender, nondistended. NEUROLOGICAL: Follows commands. Procedures none Urinary Catheter: No Vascular Central Line Catheter: No A/P Problem List: (1) Encephalopathy ICD Code: G93.40 Status: Acute (2) Malnutrition ICD Code: E46 Status: Chronic (3) Leukocytosis ICD Code: D72.829 Status: Resolved (4) COPD (chronic obstructive pulmonary disease) ICD Code: J44.9 Status: Chronic Assessment and Plan 60-year-old male with a history of asthma, schizoaffective disorder, COPD presented to the ED with altered mental status from his [facility] who refused to take him back. [facility] reporting increasing confusion despite lactulose use. Transferred to for laborer marine terminal care pending placement. Encephalopathy: Ammonia level on 03/05/16 was 68, on lactulose at [facility]. Presented back to ED on 03/06 with increasing confusion, Ammonia level 16. Has not been on lactulose since admission, and ammonia now wnl. No history of liver cirrhosis. -Chest x-ray 03/02 with scarring at the right lung base, but no acute infection. -Head CT 03/06 without acute abnormality. -UA 03/07 without infection. -Normal ammonia level on 03/14 s/p lactulose treatment. -TSH 1.170 on 03/02 yet 3.780 on 03/06. Free T3 and T4 normal. -Physical therapy indicates that there is no need for continued physical therapy at this time. Physical therapy has been discontinued -Speech therapy initially evaluated patient on 04/12. MOCA score 8/30 indicating severe cognitive impairment, which may be his baseline. ST last evaluated patient on 04/23, still with severe cognitive deficits. Leukocytosis: Resolved. UA negative. Malnutrition: Evidenced by low BMI and physical exam. Weight has improved since admission. Pre-albumin 22. -Consulted transportation supervisor; recommends to continue Ensure Enlive tid and double portions/protein with meals COPD: chronic, does not appear to be in exacerbation. -Continue Spiriva Bipolar disorder: Continue home meds including [place] and Clozaril. -Monitor for neutropenia periodically due to Clozaril use. -Check lithium level periodically. DVT prophylaxis: Low risk, patient ambulating. Lovenox was discontinued. Discharge Planning Patient's sisters would like patient transferred to [place], attempting to get into [facility], waiting for acceptance. Jazmin Lino Apr 24, 2016 11:50
[2016-04-24 20:00] VITALS: BP 117/70; PULSE 77; RESP 18; TEMP 98; O2SAT 96
[2016-04-25] MEDS: TIOTROPIUM BROMIDE 18 MCG INH INH SCH (07:49)
[2016-04-25] MEDS: cloZAPine 100 MG TAB PO SCH ×2 (07:49→19:49)
[2016-04-25] MEDS: LITHIUM CARBONATE 300 MG TAB PO SCH ×2 (07:49→19:49)
[2016-04-25 08:00] VITALS: BP 92/45; PULSE 69; RESP 20; TEMP 97; O2SAT 93
--- NOTE | 2016-04-25 11:17 | HHI.PR ---
Subjective Remarks No acute complaints. No change in clinical status. Objective Vitals Vital Signs Date Time Temp Pulse Resp B/P Pulse Ox O2 Delivery O2 Flow Rate FiO2 04/25/16 08:00 97.0 69 20 92/45 93 04/24/16 20:00 98.0 77 18 117/70 96 I/O 04/24/16 04/24/16 04/24/16 04/25/16 04/25/16 04/25/16 07:00 15:00 23:00 07:00 15:00 23:00 Intake Total 60 ml 600 ml 0 ml Balance 60 ml 600 ml 0 ml Intake Oral 60 ml 600 ml IV Total 0 ml 0 ml # Voids 3 3 # Bowel Movements 0 Objective Remarks GENERAL: Thin patient in no apparent distress lying supine in bed. CARDIOVASCULAR: Regular rate and rhythm. RESPIRATORY: Limited anterior exam. No accessory muscle use. CTAB. GASTROINTESTINAL: Abdomen soft, non-tender, nondistended. NEUROLOGICAL: Awake and alert. Procedures none Urinary Catheter: No Vascular Central Line Catheter: No A/P Problem List: (1) Encephalopathy ICD Code: G93.40 Status: Acute (2) Malnutrition ICD Code: E46 Status: Chronic (3) Leukocytosis ICD Code: D72.829 Status: Resolved (4) COPD (chronic obstructive pulmonary disease) ICD Code: J44.9 Status: Chronic Assessment and Plan 60-year-old male with a history of asthma, schizoaffective disorder, COPD presented to the ED with altered mental status from his [facility] who refused to take him back. [facility] reporting increasing confusion despite lactulose use. Transferred to for local company intermodal truck driver care pending placement. Encephalopathy: Ammonia level on 03/05/16 was 68, on lactulose at [facility]. Presented back to ED on 03/06 with increasing confusion, Ammonia level 16. Has not been on lactulose since admission, and ammonia now wnl. No history of liver cirrhosis. -Chest x-ray 03/02 with scarring at the right lung base, but no acute infection. -Head CT 03/06 without acute abnormality. -UA 03/07 without infection. -Normal ammonia level on 03/14 s/p lactulose treatment. -TSH 1.170 on 03/02 yet 3.780 on 03/06. Free T3 and T4 normal. -Physical therapy indicates that there is no need for continued physical therapy at this time. Physical therapy has been discontinued -Speech therapy initially evaluated patient on 04/12. MOCA score 8/30 indicating severe cognitive impairment, which may be his baseline. ST last evaluated patient on 04/23, still with severe cognitive deficits. Leukocytosis: Resolved. UA negative. Malnutrition: Evidenced by low BMI and physical exam. Weight has improved since admission. Pre-albumin 22. -Consulted policy issue clerk; recommends to continue Ensure Enlive tid and double portions/protein with meals COPD: chronic, does not appear to be in exacerbation. -Continue Spiriva Bipolar disorder: Continue home meds including [place] and Clozaril. -Monitor for neutropenia periodically due to Clozaril use. -Check lithium level periodically. DVT prophylaxis: Low risk, patient ambulating. Lovenox was discontinued. Patient hypotensive 92/45 this morning. Will recheck BP and address accordingly. Discharge Planning Patient's sisters would like patient transferred to [place], attempting to get into [facility] home, waiting for acceptance. Jazmin Lino Apr 25, 2016 11:17
[2016-04-25 16:24] VITALS: BP 118/72
[2016-04-25 20:00] VITALS: BP 118/70; PULSE 71; RESP 18; TEMP 97.8; O2SAT 95
[2016-04-26 08:00] VITALS: BP 134/79; PULSE 72; RESP 18; TEMP 96.7; O2SAT 95
[2016-04-26] MEDS: cloZAPine 100 MG TAB PO SCH ×2 (08:34→21:53)
[2016-04-26] MEDS: LITHIUM CARBONATE 300 MG TAB PO SCH ×2 (08:34→21:53)
[2016-04-26] MEDS: TIOTROPIUM BROMIDE 18 MCG INH INH SCH (08:35)
--- NOTE | 2016-04-26 18:08 | HHI.PR ---
Subjective Remarks No acute complaints. No change in clinical status. Objective Vitals Vital Signs Date Time Temp Pulse Resp B/P Pulse Ox O2 Delivery O2 Flow Rate FiO2 04/26/16 08:00 96.7 72 18 134/79 95 04/25/16 20:00 97.8 71 18 118/70 95 I/O 04/25/16 04/25/16 04/25/16 04/26/16 04/26/16 04/26/16 07:00 15:00 23:00 07:00 15:00 23:00 Intake Total 0 ml 1530 ml 1080 ml Balance 0 ml 1530 ml 1080 ml Intake Oral 1530 ml 1080 ml IV Total 0 ml # Voids 4 5 # Bowel Movements 1 Objective Remarks GENERAL: Thin patient in no apparent distress. CARDIOVASCULAR: Regular rate and rhythm. RESPIRATORY: No accessory muscle use. CTAB. GASTROINTESTINAL: Abdomen soft, non-tender, nondistended. NEUROLOGICAL: Awake and alert. Patient had to be guided by RN back to correct room prior to my evaluation. Procedures none Urinary Catheter: No Vascular Central Line Catheter: No A/P Problem List: (1) Encephalopathy ICD Code: G93.40 Status: Acute (2) Malnutrition ICD Code: E46 Status: Chronic (3) Leukocytosis ICD Code: D72.829 Status: Resolved (4) COPD (chronic obstructive pulmonary disease) ICD Code: J44.9 Status: Chronic Assessment and Plan 60-year-old male with a history of asthma, schizoaffective disorder, COPD presented to the ED with altered mental status from his [facility] who refused to take him back. [facility] reporting increasing confusion despite lactulose use. Transferred to for equipment operator intermodal yard care pending placement. Encephalopathy: Ammonia level on 03/05/16 was 68, on lactulose at [facility]. Presented back to ED on 03/06 with increasing confusion, Ammonia level 16. Has not been on lactulose since admission, and ammonia now wnl. No history of liver cirrhosis. -Chest x-ray 03/02 with scarring at the right lung base, but no acute infection. -Head CT 03/06 without acute abnormality. -UA 03/07 without infection. -Normal ammonia level on 03/14 s/p lactulose treatment. -TSH 1.170 on 03/02 yet 3.780 on 03/06. Free T3 and T4 normal. -Physical therapy indicates that there is no need for continued physical therapy at this time. Physical therapy has been discontinued -Speech therapy initially evaluated patient on 04/12. MOCA score 8/30 indicating severe cognitive impairment, which may be his baseline. ST last evaluated patient on 04/23, still with severe cognitive deficits. Leukocytosis: Resolved. UA negative. Malnutrition: Evidenced by low BMI and physical exam. Weight has improved since admission. Pre-albumin 22. -Consulted insole taper; recommends to continue Ensure Enlive tid and double portions/protein with meals COPD: chronic, does not appear to be in exacerbation. -Continue Spiriva Bipolar disorder: Continue home meds including [place] and Clozaril. -Monitor for neutropenia periodically due to Clozaril use. -Check lithium level periodically. DVT prophylaxis: Low risk, patient ambulating. Lovenox was discontinued. Discharge Planning Patient's sisters would like patient transferred to [place], attempting to get into [facility] home, waiting for acceptance. Jazmin Lino Apr 26, 2016 18:08
[2016-04-26 20:03] VITALS: BP 122/65; PULSE 86; RESP 16; TEMP 98.2; O2SAT 97
[2016-04-27 08:00] VITALS: BP 107/67; PULSE 16; RESP 16; TEMP 98.2; O2SAT 97
[2016-04-27] MEDS: TIOTROPIUM BROMIDE 18 MCG INH INH SCH (08:32)
[2016-04-27] MEDS: cloZAPine 100 MG TAB PO SCH ×2 (08:32→21:35)
[2016-04-27] MEDS: LITHIUM CARBONATE 300 MG TAB PO SCH ×2 (08:32→21:35)
--- NOTE | 2016-04-27 16:12 | HHI.PR ---
Subjective Remarks No acute complaints. No change in clinical status. Objective Vitals Vital Signs Date Time Temp Pulse Resp B/P Pulse Ox O2 Delivery O2 Flow Rate FiO2 04/27/16 08:00 98.2 16 16 107/67 97 04/26/16 20:03 98.2 86 16 122/65 97 I/O 04/26/16 04/26/16 04/26/16 04/27/16 04/27/16 04/27/16 07:00 15:00 23:00 07:00 15:00 23:00 Intake Total 1080 ml 480 ml 120 ml Balance 1080 ml 480 ml 120 ml Intake Oral 1080 ml 480 ml 120 ml # Voids 5 1 # Bowel Movements 1 Objective Remarks GENERAL: Thin disheveled patient in no apparent distress sitting on side of bed eating. CARDIOVASCULAR: Regular rate and rhythm. RESPIRATORY: No accessory muscle use. CTAB. GASTROINTESTINAL: Abdomen soft, non-tender, nondistended. NEUROLOGICAL: Awake and alert. Procedures none Urinary Catheter: No Vascular Central Line Catheter: No A/P Problem List: (1) Encephalopathy ICD Code: G93.40 Status: Acute (2) Malnutrition ICD Code: E46 Status: Chronic (3) Leukocytosis ICD Code: D72.829 Status: Resolved (4) COPD (chronic obstructive pulmonary disease) ICD Code: J44.9 Status: Chronic Assessment and Plan 60-year-old male with a history of asthma, schizoaffective disorder, COPD presented to the ED with altered mental status from his [facility] who refused to take him back. [facility] reporting increasing confusion despite lactulose use. 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 Encephalopathy: Ammonia level on 03/05/16 was 68, on lactulose at [facility]. Presented back to ED on 03/06 with increasing confusion, Ammonia level 16. Has not been on lactulose since admission, and ammonia now wnl. No history of liver cirrhosis. -Chest x-ray 03/02 with scarring at the right lung base, but no acute infection. -Head CT 03/06 without acute abnormality. -UA 03/07 without infection. -Normal ammonia level on 03/14 s/p lactulose treatment. -TSH 1.170 on 03/02 yet 3.780 on 03/06. Free T3 and T4 normal. -Physical therapy indicates that there is no need for continued physical therapy at this time. Physical therapy has been discontinued -Speech therapy initially evaluated patient on 04/12. MOCA score 8/30 indicating severe cognitive impairment, which may be his baseline. ST last evaluated patient on 04/23, still with severe cognitive deficits. Leukocytosis: Resolved. UA negative. Malnutrition: Evidenced by low BMI and physical exam. Weight has improved since admission. Pre-albumin 22. -Consulted cold type composing machine operator; recommends to continue Ensure Enlive tid and double portions/protein with meals COPD: chronic, does not appear to be in exacerbation. -Continue Spiriva Bipolar disorder: Continue home meds including [place] and Clozaril. -Monitor for neutropenia periodically due to Clozaril use. -Check lithium level periodically. DVT prophylaxis: Low risk, patient ambulating. Lovenox was discontinued. Discharge Planning Patient's sisters would like patient transferred to [place], attempting to get into [facility], waiting for acceptance. Jazmin Lino Apr 27, 2016 16:12
[2016-04-27 20:00] VITALS: BP 109/60; PULSE 71; RESP 18; TEMP 97.8; O2SAT 96
[2016-04-28] MEDS: LITHIUM CARBONATE 300 MG TAB PO SCH ×2 (01:17→09:18)
[2016-04-28 08:00] VITALS: BP 121/65; PULSE 68; RESP 18; TEMP 98.7; O2SAT 96
[2016-04-28] MEDS: cloZAPine 100 MG TAB PO SCH ×2 (09:18→21:15)
[2016-04-28] MEDS: TIOTROPIUM BROMIDE 18 MCG INH INH SCH (09:18)
--- NOTE | 2016-04-28 11:22 | HHI.PR ---
Subjective Remarks No acute complaints. No change in clinical status. Objective Vitals Vital Signs Date Time Temp Pulse Resp B/P Pulse Ox O2 Delivery O2 Flow Rate FiO2 04/28/16 08:00 98.7 68 18 121/65 96 04/27/16 20:00 97.8 71 18 109/60 96 I/O 04/27/16 04/27/16 04/27/16 04/28/16 04/28/16 04/28/16 06:59 14:59 22:59 06:59 14:59 22:59 Intake Total 120 ml 600 ml Balance 120 ml 600 ml Intake Oral 120 ml 600 ml # Voids 4 Objective Remarks GENERAL: Well developed patient in no apparent distress. EYES: Pupils normal. CARDIOVASCULAR: Regular rate and rhythm. RESPIRATORY: No accessory muscle use. CTAB. GASTROINTESTINAL: Abdomen soft, non-tender, nondistended. NEUROLOGICAL: Awake and alert. Procedures none A/P Problem List: (1) Encephalopathy ICD Code: G93.40 Status: Acute (2) Malnutrition ICD Code: E46 Status: Chronic (3) Leukocytosis ICD Code: D72.829 Status: Resolved (4) COPD (chronic obstructive pulmonary disease) ICD Code: J44.9 Status: Chronic Assessment and Plan 60-year-old male with a history of asthma, schizoaffective disorder, COPD presented to the ED with altered mental status from his [facility] who refused to take him back. [facility] reporting increasing confusion despite lactulose use. Transferred to for assisted care pending placement. Encephalopathy: Ammonia level on 03/05/16 was 68, on lactulose at [facility]. Presented back to ED on 03/06 with increasing confusion, Ammonia level 16. Has not been on lactulose since admission, and ammonia now wnl. No history of liver cirrhosis. -Chest x-ray 03/02 with scarring at the right lung base, but no acute infection. -Head CT 03/06 without acute abnormality. -UA 03/07 without infection. -Normal ammonia level on 03/14 s/p lactulose treatment. -TSH 1.170 on 03/02 yet 3.780 on 03/06. Free T3 and T4 normal. -Physical therapy indicates that there is no need for continued physical therapy at this time. Physical therapy has been discontinued -Speech therapy initially evaluated patient on 04/12. MOCA score 8/30 indicating severe cognitive impairment, which may be his baseline. ST last evaluated patient on 04/23, still with severe cognitive deficits. Leukocytosis: Resolved. UA negative. Malnutrition: Evidenced by low BMI and physical exam. Weight has improved since admission. Pre-albumin 22. -Consulted second vp hr assessment; recommends to continue Ensure Enlive tid and double portions/protein with meals COPD: chronic, does not appear to be in exacerbation. -Continue Spiriva Bipolar disorder: Continue home meds including [place] and Clozaril. -Monitor for neutropenia periodically due to Clozaril use. -Check lithium level periodically. DVT prophylaxis: Low risk, patient ambulating. Lovenox was discontinued. Discharge Planning Patient's sisters would like patient transferred to [place], attempting to get into [facility], waiting for acceptance. Jazmin Lino Apr 28, 2016 11:22
[2016-04-28 20:00] VITALS: BP 112/56; PULSE 67; RESP 16; TEMP 97.9; O2SAT 95
[2016-04-29 08:00] VITALS: BP 104/65; PULSE 65; RESP 18; TEMP 98; O2SAT 95
--- NOTE | 2016-04-29 08:39 | HHI.PR ---
Subjective Remarks No acute complaints. No change in clinical status. Objective Vitals Vital Signs Date Time Temp Pulse Resp B/P Pulse Ox O2 Delivery O2 Flow Rate FiO2 04/29/16 08:00 98.0 65 18 104/65 95 04/28/16 20:00 97.9 67 16 112/56 95 I/O 04/28/16 04/28/16 04/28/16 04/29/16 04/29/16 04/29/16 06:59 14:59 22:59 06:59 14:59 22:59 Intake Total 1920 ml Balance 1920 ml Intake Oral 1920 ml # Voids 3 4 # Bowel Movements 1 0 Objective Remarks GENERAL: Well developed patient in no apparent distress sleeping when I enter the room. CARDIOVASCULAR: Regular rate and rhythm. RESPIRATORY: No accessory muscle use. CTAB. GASTROINTESTINAL: Abdomen soft, non-tender, nondistended. NEUROLOGICAL: Sleeping, but arouses to voice. Procedures none Urinary Catheter: No Vascular Central Line Catheter: No A/P Problem List: (1) Encephalopathy ICD Code: G93.40 Status: Acute (2) Malnutrition ICD Code: E46 Status: Chronic (3) Leukocytosis ICD Code: D72.829 Status: Resolved (4) COPD (chronic obstructive pulmonary disease) ICD Code: J44.9 Status: Chronic Assessment and Plan 60-year-old male with a history of asthma, schizoaffective disorder, COPD presented to the ED with altered mental status from his [facility] who refused to take him back. [facility] reporting increasing confusion despite lactulose use. 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 Encephalopathy: Ammonia level on 03/05/16 was 68, on lactulose at [facility]. Presented back to ED on 03/06 with increasing confusion, Ammonia level 16. Has not been on lactulose since admission, and ammonia now wnl. No history of liver cirrhosis. -Chest x-ray 03/02 with scarring at the right lung base, but no acute infection. -Head CT 03/06 without acute abnormality. -UA 03/07 without infection. -Normal ammonia level on 03/14 s/p lactulose treatment. -TSH 1.170 on 03/02 yet 3.780 on 03/06. Free T3 and T4 normal. -Physical therapy indicates that there is no need for continued physical therapy at this time. Physical therapy has been discontinued -Speech therapy initially evaluated patient on 04/12. MOCA score 8/30 indicating severe cognitive impairment, which may be his baseline. ST last evaluated patient on 04/23, still with severe cognitive deficits. Leukocytosis: Resolved. UA negative. Malnutrition: Evidenced by low BMI and physical exam. Weight has improved since admission. Pre-albumin 22. -Consulted hand cutter; recommends to continue Ensure Enlive tid and double portions/protein with meals COPD: chronic, does not appear to be in exacerbation. -Continue Spiriva Bipolar disorder: Continue home meds including [place] and Clozaril. -Monitor for neutropenia periodically due to Clozaril use. -Check lithium level periodically. DVT prophylaxis: Low risk, patient ambulating. Lovenox was discontinued. Discharge Planning Patient's sisters would like patient transferred to [place], attempting to get into [facility], waiting for acceptance. Jazmin Lino Apr 29, 2016 08:39
[2016-04-29] MEDS: TIOTROPIUM BROMIDE 18 MCG INH INH SCH (09:40)
[2016-04-29] MEDS: LITHIUM CARBONATE 300 MG TAB PO SCH ×2 (09:40→21:37)
[2016-04-29] MEDS: cloZAPine 100 MG TAB PO SCH ×2 (09:40→21:37)
[2016-04-29 20:00] VITALS: BP 107/61; PULSE 74; RESP 18; TEMP 96.7; O2SAT 94
[2016-04-30 08:01] VITALS: BP 117/71; PULSE 71; RESP 18; TEMP 98; O2SAT 95
--- NOTE | 2016-04-30 08:24 | HHI.PR ---
Subjective Remarks Patient seen and examined today. Patient denies any new complaints. No change in clinical status. Objective Vitals Vital Signs Date Time Temp Pulse Resp B/P Pulse Ox O2 Delivery O2 Flow Rate FiO2 04/30/16 08:01 98.0 71 18 117/71 95 04/29/16 20:00 96.7 74 18 107/61 94 I/O 04/29/16 04/29/16 04/29/16 04/30/16 04/30/16 04/30/16 07:00 15:00 23:00 07:00 15:00 23:00 Intake Total 500 ml 360 ml Balance 500 ml 360 ml Intake Oral 500 ml 360 ml # Voids 4 1 3 # Bowel Movements 0 0 Objective Remarks GENERAL: Well-developed, well-nourished, in no acute distress. alert, orientated to [facility], person, not orientated to year, month, state HEENT: Head is normocephalic without any lesions or masses noted. Facial features are symmetric. Eyes: Extraocular muscles are intact. Conjunctivae were clear NECK: Trachea midline no deviation. CARDIAC: Regular rhythm, regular rate. S1/S2 are heard. No murmurs gallops or rubs. LUNGS: Clear to auscultation bilaterally. No wheeze, rhonchi or rales. No use of accessory muscles on inspiration or expiration. ABDOMEN: Soft, nontender. Nondistended. Bowel sounds heard in all 4 quadrants. No organomegaly or masses. Negative rebound, negative guarding EXTREMITIES: No edema, pulses are equal bilaterally. No cyanosis or clubbing NEUROLOGY: Mood and affect appear appropriate. Cranial nerves II through XII grossly intact. Moving all extremities, speech is clear Procedures none Urinary Catheter: No Vascular Central Line Catheter: No A/P Assessment and Plan 60-year-old male with a history of asthma, schizoaffective disorder, COPD presented to the ED with altered mental status from his [facility] who refused to take him back. [facility] reporting increasing confusion despite lactulose use. Records reviewed. Encephalopathy: baseline. -Chest x-ray 03/02 personally reviewed with scarring at the right lung base, but no acute infection. -Head CT 03/06 without acute abnormality. -UA 03/07 without infection. -Normal ammonia level on 03/14 s/p lactulose treatment. -TSH 1.170 on 03/02 yet 3.780 on 03/06. Free T3, free T4 were normal -Physical therapy indicates that there is no need for continued physical therapy at this time. Physical therapy has been discontinued on 03/29. However they recommend patient to have PT at rehabilitation Malnutrition: Evidenced by low BMI and physical exam. -Consulted plant operations engineer, started patient on Regular diet with Ensure Enlive on all meal trays. Rolling Mill Operator Helper following. -Prealbumin 22 COPD: chronic, does not appear to be in exacerbation. Bipolar disorder: Continue home meds including [place] and Clozaril. [place] level in the therapeutic range. -Monitor for neutropenia and lithium level monthly, next time 05/15/15. DVT prophylaxis: Low risk, patient ambulating Discharge Planning Patient's sisters would like patient transferred to [place], attempting to get into [facility]. CM still looking into local placement. 04/29/16 1432 CONT TO WORK WITH [facility] [place] FOR PATIENT ACCEPTANCE. SENT REQUESTED PROOF OF MEDICAID PAPERWORK TODAY. WILL F/U KENDRICK LOJA LPN/CM/CHARGE Surya Neely Apr 30, 2016 08:24
[2016-04-30] MEDS: TIOTROPIUM BROMIDE 18 MCG INH INH SCH (08:34)
[2016-04-30] MEDS: cloZAPine 100 MG TAB PO SCH ×2 (08:34→20:36)
[2016-04-30] MEDS: LITHIUM CARBONATE 300 MG TAB PO SCH ×2 (08:35→20:37)
[2016-04-30 20:00] VITALS: BP 111/62; PULSE 79; RESP 18; TEMP 98.2; O2SAT 96
[2016-05-01 08:00] VITALS: BP 121/69; PULSE 94; RESP 20; TEMP 96.9; O2SAT 95
[2016-05-01] MEDS: cloZAPine 100 MG TAB PO SCH ×2 (08:22→20:04)
[2016-05-01] MEDS: TIOTROPIUM BROMIDE 18 MCG INH INH SCH (08:22)
[2016-05-01] MEDS: LITHIUM CARBONATE 300 MG TAB PO SCH ×2 (08:23→20:09)
--- NOTE | 2016-05-01 08:29 | HHI.PR ---
Subjective Remarks Patient seen and examined today. Patient has any new complaints. No change in clinical status. Objective Vitals Vital Signs Date Time Temp Pulse Resp B/P Pulse Ox O2 Delivery O2 Flow Rate FiO2 04/30/16 20:00 98.2 79 18 111/62 96 I/O 04/30/16 04/30/16 04/30/16 05/01/16 05/01/16 05/01/16 07:00 15:00 23:00 07:00 15:00 23:00 Intake Total 360 ml 360 ml 360 ml Balance 360 ml 360 ml 360 ml Intake Oral 360 ml 360 ml 360 ml # Voids 3 1 1 # Bowel Movements 1 0 Objective Remarks GENERAL: Well-developed, well-nourished, in no acute distress. alert, orientated to [facility], person, not orientated to year, month, state HEENT: Head is normocephalic without any lesions or masses noted. Facial features are symmetric. Eyes: Extraocular muscles are intact. Conjunctivae were clear NECK: Trachea midline no deviation. CARDIAC: Regular rhythm, regular rate. S1/S2 are heard. No murmurs gallops or rubs. LUNGS: Clear to auscultation bilaterally. No wheeze, rhonchi or rales. No use of accessory muscles on inspiration or expiration. ABDOMEN: Soft, nontender. Nondistended. Bowel sounds heard in all 4 quadrants. No organomegaly or masses. Negative rebound, negative guarding EXTREMITIES: No edema, pulses are equal bilaterally. No cyanosis or clubbing NEUROLOGY: Mood and affect appear appropriate. Cranial nerves II through XII grossly intact. Moving all extremities, speech is clear Procedures none Urinary Catheter: No Vascular Central Line Catheter: No A/P Assessment and Plan 60-year-old male with a history of asthma, schizoaffective disorder, COPD presented to the ED with altered mental status from his [facility] who refused to take him back. [facility] reporting increasing confusion despite lactulose use. Records reviewed. Encephalopathy: baseline. -Chest x-ray 03/02 personally reviewed with scarring at the right lung base, but no acute infection. -Head CT 03/06 without acute abnormality. -UA 03/07 without infection. -Normal ammonia level on 03/14 s/p lactulose treatment. -TSH 1.170 on 03/02 yet 3.780 on 03/06. Free T3, free T4 were normal -Physical therapy indicates that there is no need for continued physical therapy at this time. Physical therapy has been discontinued on 03/29. However they recommend patient to have PT at rehabilitation Malnutrition: Evidenced by low BMI and physical exam. Improved -Consulted independent distributor, started patient on Regular diet with Ensure Enlive on all meal trays. Cattle Knocker following. -Prealbumin 22 COPD: chronic and stable, does not appear to be in exacerbation. Bipolar disorder: Continue home meds including [place] and Clozaril. [place] level in the therapeutic range. -Monitor for neutropenia and lithium level monthly, next time 05/15/15. DVT prophylaxis: Low risk, patient ambulating Discharge Planning Patient's sisters would like patient transferred to [place], attempting to get into [facility]. CM still looking into local placement. 04/29/16 1432 CONT TO WORK WITH [facility] [place] FOR PATIENT ACCEPTANCE. SENT REQUESTED PROOF OF MEDICAID PAPERWORK TODAY. WILL F/U KENDRICK LOJA LPN/CM/CHARGE Surya Neely May 01, 2016 08:29
[2016-05-01 20:00] VITALS: BP 109/62; PULSE 66; RESP 18; TEMP 97.9; O2SAT 95
[2016-05-02] MEDS: LITHIUM CARBONATE 300 MG TAB PO SCH ×2 (07:42→20:13)
[2016-05-02] MEDS: TIOTROPIUM BROMIDE 18 MCG INH INH SCH (07:42)
[2016-05-02] MEDS: cloZAPine 100 MG TAB PO SCH ×2 (07:44→20:13)
[2016-05-02 07:48] VITALS: BP 111/67; PULSE 79; RESP 17; TEMP 98.4; O2SAT 97
--- NOTE | 2016-05-02 09:10 | HHI.PR ---
Subjective Remarks Patient seen and examined today. Patient denies any new complaints. No change in clinical status. Objective Vitals Vital Signs Date Time Temp Pulse Resp B/P Pulse Ox O2 Delivery O2 Flow Rate FiO2 05/02/16 07:48 98.4 79 17 111/67 97 05/01/16 20:00 97.9 66 18 109/62 95 I/O 05/01/16 05/01/16 05/01/16 05/02/16 05/02/16 05/02/16 07:00 15:00 23:00 07:00 15:00 23:00 Intake Total 360 ml 1200 ml Balance 360 ml 1200 ml Intake Oral 360 ml 1200 ml # Voids 1 7 # Bowel Movements 0 2 Objective Remarks GENERAL: Well-developed, well-nourished, in no acute distress. alert, orientated to [facility], person, not orientated to year, month, state HEENT: Head is normocephalic without any lesions or masses noted. Facial features are symmetric. Eyes: Extraocular muscles are intact. Conjunctivae were clear NECK: Trachea midline no deviation. CARDIAC: Regular rhythm, regular rate. S1/S2 are heard. No murmurs gallops or rubs. LUNGS: Clear to auscultation bilaterally. No wheeze, rhonchi or rales. No use of accessory muscles on inspiration or expiration. ABDOMEN: Soft, nontender. Nondistended. Bowel sounds heard in all 4 quadrants. No organomegaly or masses. Negative rebound, negative guarding EXTREMITIES: No edema, pulses are equal bilaterally. No cyanosis or clubbing NEUROLOGY: Mood and affect appear appropriate. Cranial nerves II through XII grossly intact. Moving all extremities, speech is clear Procedures none Urinary Catheter: No Vascular Central Line Catheter: No A/P Assessment and Plan 60-year-old male with a history of asthma, schizoaffective disorder, COPD presented to the ED with altered mental status from his [facility]RE[facility] who refused to take him back. CORRECTION reporting increasing confusion despite lactulose use. Records reviewed. Encephalopathy: baseline. -Chest x-ray 03/02 personally reviewed with scarring at the right lung base, but no acute infection. -Head CT 03/06 without acute abnormality. -UA 03/07 without infection. -Normal ammonia level on 03/14 s/p lactulose treatment. -TSH 1.170 on 03/02 yet 3.780 on 03/06. Free T3, free T4 were normal -Physical therapy indicates that there is no need for continued physical therapy at this time. Physical therapy has been discontinued on 03/29. However they recommend patient to have PT at rehabilitation Malnutrition: Evidenced by low BMI and physical exam. Improved -Consulted psychological aide, started patient on Regular diet with Ensure Enlive on all meal trays. Rn Oncology Research following. -Prealbumin 22 COPD: chronic and stable, does not appear to be in exacerbation. Bipolar disorder: Continue home meds including [place] and Clozaril. [place] level in the therapeutic range. -Monitor for neutropenia and lithium level monthly, next time 05/15/15. DVT prophylaxis: Low risk, patient ambulating Discharge Planning Patient's sisters would like patient transferred to [place], attempting to get into [facility]. CM still looking into local placement. 04/29/16 1432 CONT TO WORK WITH [facility] IN [place] FOR PATIENT ACCEPTANCE. SENT REQUESTED PROOF OF MEDICAID PAPERWORK TODAY. WILL F/U KENDRICK LOJA LPN/CM/CHARGE Surya Neely May 02, 2016 09:10
[2016-05-02 09:50] VITALS: BP 111/67; PULSE 79; RESP 17; TEMP 98.4; O2SAT 97
[2016-05-02 20:00] VITALS: BP 104/61; PULSE 75; RESP 16; TEMP 98.8; O2SAT 96
[2016-05-03] MEDS: TIOTROPIUM BROMIDE 18 MCG INH INH SCH (07:56)
[2016-05-03] MEDS: LITHIUM CARBONATE 300 MG TAB PO SCH ×2 (07:57→20:50)
[2016-05-03] MEDS: cloZAPine 100 MG TAB PO SCH ×2 (07:57→20:50)
[2016-05-03 09:07] VITALS: BP 125/66; PULSE 71; RESP 22; TEMP 97.9; O2SAT 96
--- NOTE | 2016-05-03 09:32 | HHI.PR ---
Subjective Remarks Patient seen and examined today. Patient denies any new complaints. No change in clinical status. Objective Vitals Vital Signs Date Time Temp Pulse Resp B/P Pulse Ox O2 Delivery O2 Flow Rate FiO2 05/03/16 09:07 97.9 71 22 125/66 96 05/02/16 20:00 98.8 75 16 104/61 96 05/02/16 09:50 98.4 79 17 111/67 97 Objective Remarks GENERAL: Well-developed, well-nourished, in no acute distress. alert, orientated to [facility], person, not orientated to year, month, state HEENT: Head is normocephalic without any lesions or masses noted. Facial features are symmetric. Eyes: Extraocular muscles are intact. Conjunctivae were clear NECK: Trachea midline no deviation. CARDIAC: Regular rhythm, regular rate. S1/S2 are heard. No murmurs gallops or rubs. LUNGS: Clear to auscultation bilaterally. No wheeze, rhonchi or rales. No use of accessory muscles on inspiration or expiration. ABDOMEN: Soft, nontender. Nondistended. Bowel sounds heard in all 4 quadrants. No organomegaly or masses. Negative rebound, negative guarding EXTREMITIES: No edema, pulses are equal bilaterally. No cyanosis or clubbing NEUROLOGY: Mood and affect appear appropriate. Cranial nerves II through XII grossly intact. Moving all extremities, speech is clear Procedures none Urinary Catheter: No Vascular Central Line Catheter: No A/P Assessment and Plan 60-year-old male with a history of asthma, schizoaffective disorder, COPD presented to the ED with altered mental status from his BAOZ who refused to take him back. BOAZ reporting increasing confusion despite lactulose use. Records reviewed. Encephalopathy: baseline. -Chest x-ray 03/02 personally reviewed with scarring at the right lung base, but no acute infection. -Head CT 03/06 without acute abnormality. -UA 03/07 without infection. -Normal ammonia level on 03/14 s/p lactulose treatment. -TSH 1.170 on 03/02 yet 3.780 on 03/06. Free T3, free T4 were normal -Physical therapy indicates that there is no need for continued physical therapy at this time. Physical therapy has been discontinued on 03/29. However they recommend patient to have PT at rehabilitation Malnutrition: Evidenced by low BMI and physical exam. Improved -Consulted inspector and tester, started patient on Regular diet with Ensure Enlive on all meal trays. Marketing Area Manager following. -Prealbumin 22 COPD: chronic and stable, does not appear to be in exacerbation. Bipolar disorder: Continue home meds including [place] and Clozaril. [place] level in the therapeutic range. -Monitor for neutropenia and lithium level monthly, next time 05/15/15. DVT prophylaxis: Low risk, patient ambulating Discharge Planning Patient's sisters would like patient transferred to [place], attempting to get into [facility]. CM still looking into local placement. 04/29/16 1432 CONT TO WORK WITH [facility] IN [place] FOR PATIENT ACCEPTANCE. SENT REQUESTED PROOF OF MEDICAID PAPERWORK TODAY. WILL F/U KENDRICK LOJA LPN/CM/CHARGE Surya Neely May 03, 2016 09:32
[2016-05-03 20:10] VITALS: BP 118/61; PULSE 72; RESP 18; TEMP 98.4; O2SAT 95
[2016-05-04 08:00] VITALS: BP 115/76; PULSE 67; RESP 18; TEMP 98; O2SAT 97
--- NOTE | 2016-05-04 08:02 | HHI.PR ---
Subjective Remarks Patient seen and examined today. Patient denies any new complaints. No change in clinical status. Objective Vitals Vital Signs Date Time Temp Pulse Resp B/P Pulse Ox O2 Delivery O2 Flow Rate FiO2 05/03/16 20:10 98.4 72 18 118/61 95 05/03/16 09:07 97.9 71 22 125/66 96 I/O 05/03/16 05/03/16 05/03/16 05/04/16 05/04/16 05/04/16 07:00 15:00 23:00 07:00 15:00 23:00 Intake Total 1000 ml 600 ml Balance 1000 ml 600 ml Intake Oral 1000 ml 600 ml # Voids 5 2 3 # Bowel Movements 1 Objective Remarks GENERAL: Well-developed, well-nourished, in no acute distress. alert, orientated to [facility], person, not orientated to year, month, state HEENT: Head is normocephalic without any lesions or masses noted. Facial features are symmetric. Eyes: Extraocular muscles are intact. Conjunctivae were clear NECK: Trachea midline no deviation. CARDIAC: Regular rhythm, regular rate. S1/S2 are heard. No murmurs gallops or rubs. LUNGS: Clear to auscultation bilaterally. No wheeze, rhonchi or rales. No use of accessory muscles on inspiration or expiration. ABDOMEN: Soft, nontender. Nondistended. Bowel sounds heard in all 4 quadrants. No organomegaly or masses. Negative rebound, negative guarding EXTREMITIES: No edema, pulses are equal bilaterally. No cyanosis or clubbing NEUROLOGY: Mood and affect appear appropriate. Cranial nerves II through XII grossly intact. Moving all extremities, speech is clear Procedures none Urinary Catheter: No Vascular Central Line Catheter: No A/P Assessment and Plan 60-year-old male with a history of asthma, schizoaffective disorder, COPD presented to the ED with altered mental status from his [facility] who refused to take him back. [facility] reporting increasing confusion despite lactulose use. Records reviewed. Encephalopathy: baseline. -Chest x-ray 03/02 personally reviewed with scarring at the right lung base, but no acute infection. -Head CT 03/06 without acute abnormality. -UA 03/07 without infection. -Normal ammonia level on 03/14 s/p lactulose treatment. -TSH 1.170 on 03/02 yet 3.780 on 03/06. Free T3, free T4 were normal -Physical therapy indicates that there is no need for continued physical therapy at this time. Physical therapy has been discontinued on 03/29. However they recommend patient to have PT at rehabilitation Malnutrition: Evidenced by low BMI and physical exam. Improved -Consulted yarn mercerizer operator, started patient on Regular diet with Ensure Enlive on all meal trays. Rollway Worker following. -Prealbumin 22 COPD: chronic and stable, does not appear to be in exacerbation. Bipolar disorder: Continue home meds including [place] and Clozaril. [place] level in the therapeutic range. -Monitor for neutropenia and lithium level monthly, next time 05/15/15. DVT prophylaxis: Low risk, patient ambulating Discharge Planning Patient's sisters would like patient transferred to [place], attempting to get into [facility]. CM still looking into local placement. 04/29/16 [address] [facility] [place] FOR PATIENT ACCEPTANCE. SENT REQUESTED PROOF OF MEDICAID PAPERWORK TODAY. WILL F/U KENDRICK LOJA LPN/CM/CHARGE Surya Neely May 04, 2016 08:02
[2016-05-04] MEDS: TIOTROPIUM BROMIDE 18 MCG INH INH SCH (08:21)
[2016-05-04] MEDS: cloZAPine 100 MG TAB PO SCH ×2 (08:21→19:14)
[2016-05-04] MEDS: LITHIUM CARBONATE 300 MG TAB PO SCH ×2 (08:21→19:14)
[2016-05-04 21:00] VITALS: BP 129/78; PULSE 78; RESP 16; TEMP 96.5; O2SAT 98
[2016-05-05 08:00] VITALS: BP 115/74; PULSE 66; RESP 18; TEMP 98; O2SAT 97
[2016-05-05] MEDS: LITHIUM CARBONATE 300 MG TAB PO SCH ×2 (08:02→20:01)
[2016-05-05] MEDS: TIOTROPIUM BROMIDE 18 MCG INH INH SCH (08:02)
[2016-05-05] MEDS: cloZAPine 100 MG TAB PO SCH ×2 (08:02→20:01)
--- NOTE | 2016-05-05 10:08 | HHI.PR ---
Subjective Remarks Patient seen and examined today. Patient has any new complaints. No change in clinical status. Objective Vitals Vital Signs Date Time Temp Pulse Resp B/P Pulse Ox O2 Delivery O2 Flow Rate FiO2 05/05/16 08:00 98.0 66 18 115/74 97 05/04/16 21:00 96.5 78 16 129/78 98 I/O 05/04/16 05/04/16 05/04/16 05/05/16 05/05/16 05/05/16 07:00 15:00 23:00 07:00 15:00 23:00 Intake Total 600 ml 1320 ml 1080 ml Balance 600 ml 1320 ml 1080 ml Intake Oral 600 ml 1320 ml 1080 ml # Voids 3 7 2 4 # Bowel Movements 1 Objective Remarks GENERAL: Well-developed, well-nourished, in no acute distress. alert, orientated to [facility], person, not orientated to year, month, state HEENT: Head is normocephalic without any lesions or masses noted. Facial features are symmetric. Eyes: Extraocular muscles are intact. Conjunctivae were clear NECK: Trachea midline no deviation. CARDIAC: Regular rhythm, regular rate. S1/S2 are heard. No murmurs gallops or rubs. LUNGS: Clear to auscultation bilaterally. No wheeze, rhonchi or rales. No use of accessory muscles on inspiration or expiration. ABDOMEN: Soft, nontender. Nondistended. Bowel sounds heard in all 4 quadrants. No organomegaly or masses. Negative rebound, negative guarding EXTREMITIES: No edema, pulses are equal bilaterally. No cyanosis or clubbing NEUROLOGY: Mood and affect appear appropriate. Cranial nerves II through XII grossly intact. Moving all extremities, speech is clear Procedures none Urinary Catheter: No Vascular Central Line Catheter: No A/P Assessment and Plan 60-year-old male with a history of asthma, schizoaffective disorder, COPD presented to the ED with altered mental status from his BOAZ who refused to take him back. BOAZ reporting increasing confusion despite lactulose use. Records reviewed. Encephalopathy: baseline. -Chest x-ray 03/02 personally reviewed with scarring at the right lung base, but no acute infection. -Head CT 03/06 without acute abnormality. -UA 03/07 without infection. -Normal ammonia level on 03/14 s/p lactulose treatment. -TSH 1.170 on 03/02 yet 3.780 on 03/06. Free T3, free T4 were normal -Physical therapy indicates that there is no need for continued physical therapy at this time. Physical therapy has been discontinued on 03/29. However they recommend patient to have PT at rehabilitation Malnutrition: Evidenced by low BMI and physical exam. Improved -Consulted eyeglass fitter, started patient on Regular diet with Ensure Enlive on all meal trays. High Pressure Boiler Operator following. -Prealbumin 22 COPD: chronic and stable, does not appear to be in exacerbation. Bipolar disorder: Continue home meds including [place] and Clozaril. [place] level in the therapeutic range. -Monitor for neutropenia and lithium level monthly, next time 05/15/15. DVT prophylaxis: Low risk, patient ambulating Discharge Planning Patient's sisters would like patient transferred to [place], attempting to get into [facility]. CM still looking into local placement. 04/29/16 1432 CONT TO WORK WITH [facility] IN [place] FOR PATIENT ACCEPTANCE. SENT REQUESTED PROOF OF MEDICAID PAPERWORK TODAY. WILL F/U KENDRICK LOJA LPN/BAIRON/CHARGE Surya Neely May 05, 2016 10:08
[2016-05-05 20:00] VITALS: BP 111/61; PULSE 69; RESP 20; TEMP 99; O2SAT 97
[2016-05-06] MEDS: LITHIUM CARBONATE 300 MG TAB PO SCH ×2 (07:32→20:32)
[2016-05-06] MEDS: cloZAPine 100 MG TAB PO SCH ×2 (07:32→20:32)
[2016-05-06] MEDS: TIOTROPIUM BROMIDE 18 MCG INH INH SCH (07:32)
[2016-05-06 08:00] VITALS: BP 131/64; PULSE 82; RESP 20; TEMP 96; O2SAT 98
--- NOTE | 2016-05-06 11:49 | HHI.PR ---
Subjective Remarks Patient seen and examined today. Patient denies any new complaints. No change clinical status. Objective Vitals Vital Signs Date Time Temp Pulse Resp B/P Pulse Ox O2 Delivery O2 Flow Rate FiO2 05/06/16 08:00 96.0 82 20 131/64 98 05/05/16 20:00 99.0 69 20 111/61 97 I/O 05/05/16 05/05/16 05/05/16 05/06/16 05/06/16 05/06/16 07:00 15:00 23:00 07:00 15:00 23:00 Intake Total 1080 ml 920 ml Balance 1080 ml 920 ml Intake Oral 1080 ml 920 ml # Voids 4 8 1 1 # Bowel Movements 1 Objective Remarks GENERAL: Well-developed, well-nourished, in no acute distress. alert, orientated to [facility], person, not orientated to year, month, state HEENT: Head is normocephalic without any lesions or masses noted. Facial features are symmetric. Eyes: Extraocular muscles are intact. Conjunctivae were clear NECK: Trachea midline no deviation. CARDIAC: Regular rhythm, regular rate. S1/S2 are heard. No murmurs gallops or rubs. LUNGS: Clear to auscultation bilaterally. No wheeze, rhonchi or rales. No use of accessory muscles on inspiration or expiration. ABDOMEN: Soft, nontender. Nondistended. Bowel sounds heard in all 4 quadrants. No organomegaly or masses. Negative rebound, negative guarding EXTREMITIES: No edema, pulses are equal bilaterally. No cyanosis or clubbing NEUROLOGY: Mood and affect appear appropriate. Cranial nerves II through XII grossly intact. Moving all extremities, speech is clear Procedures none Urinary Catheter: No Vascular Central Line Catheter: No A/P Assessment and Plan 60-year-old male with a history of asthma, schizoaffective disorder, COPD presented to the ED with altered mental status from his RESIDENTIAL who refused to take him back. RESIDENTIAL reporting increasing confusion despite lactulose use. Records reviewed. Encephalopathy: baseline. -Chest x-ray 03/02 personally reviewed with scarring at the right lung base, but no acute infection. -Head CT 03/06 without acute abnormality. -UA 03/07 without infection. -Normal ammonia level on 03/14 s/p lactulose treatment. -TSH 1.170 on 03/02 yet 3.780 on 03/06. Free T3, free T4 were normal -Physical therapy indicates that there is no need for continued physical therapy at this time. Physical therapy has been discontinued on 03/29. However they recommend patient to have PT at rehabilitation Malnutrition: Evidenced by low BMI and physical exam. Improved -Consulted roof painter, started patient on Regular diet with Ensure Enlive on all meal trays. Envelope Adjuster following. -Prealbumin 22 COPD: chronic and stable, does not appear to be in exacerbation. Bipolar disorder: Continue home meds including [place] and Clozaril. [place] level in the therapeutic range. -Monitor for neutropenia and lithium level monthly, next time 05/15/15. DVT prophylaxis: Low risk, patient ambulating Discharge Planning Patient's sisters would like patient transferred to [place], attempting to get into [facility]. CM still looking into local placement. 04/29/16 1432 CONT TO WORK WITH [facility] IN [place] FOR PATIENT ACCEPTANCE. SENT REQUESTED PROOF OF MEDICAID PAPERWORK TODAY. WILL F/U KENDRICK LOJA LPN/BAIRON/CHARGE Surya Neely May 06, 2016 11:49
[2016-05-06 20:00] VITALS: BP 121/65; PULSE 73; RESP 16; TEMP 96.1; O2SAT 96
[2016-05-07 08:42] VITALS: BP 130/71; PULSE 71; RESP 18; TEMP 98.1; O2SAT 97
--- NOTE | 2016-05-07 09:05 | HHI.PR ---
Subjective Remarks No acute complaints. No change in clinical status. Objective Vitals Vital Signs Date Time Temp Pulse Resp B/P Pulse Ox O2 Delivery O2 Flow Rate FiO2 05/07/16 08:42 98.1 71 18 130/71 97 05/06/16 20:00 96.1 73 16 121/65 96 I/O 05/06/16 05/06/16 05/06/16 05/07/16 05/07/16 05/07/16 07:00 15:00 23:00 07:00 15:00 23:00 Intake Total 1080 ml 240 ml 240 ml Balance 1080 ml 240 ml 240 ml Intake Oral 1080 ml 240 ml 240 ml # Voids 1 2 3 2 # Bowel Movements 1 0 0 Objective Remarks GENERAL: Well developed patient in no apparent distress sitting in dayroom. EYES: Pupils equal. CARDIOVASCULAR: Regular rate and rhythm. RESPIRATORY: No accessory muscle use. Diminished breath sounds as patient does not properly take deep breaths. GASTROINTESTINAL: Abdomen soft, non-tender, nondistended. NEUROLOGICAL: Awake and alert. Procedures none Urinary Catheter: No Vascular Central Line Catheter: No A/P Problem List: (1) Encephalopathy ICD Code: G93.40 Status: Acute (2) Malnutrition ICD Code: E46 Status: Chronic (3) Leukocytosis ICD Code: D72.829 Status: Resolved (4) COPD (chronic obstructive pulmonary disease) ICD Code: J44.9 Status: Chronic Assessment and Plan 60-year-old male with a history of asthma, schizoaffective disorder, COPD presented to the ED with altered mental status from his [facility] who refused to take him back. [facility] reporting increasing confusion despite lactulose use. Transferred to for senior care care pending placement. Encephalopathy: Stable. Ammonia level on 03/05/16 was 68, on lactulose at [facility]. Presented back to ED on 03/06 with increasing confusion, Ammonia level 16. Has not been on lactulose since admission, and ammonia now wnl. No history of liver cirrhosis. -Chest x-ray 03/02 with scarring at the right lung base, but no acute infection. -Head CT 03/06 without acute abnormality. -UA 03/07 without infection. -Normal ammonia level on 03/14 s/p lactulose treatment. -TSH 1.170 on 03/02 yet 3.780 on 03/06. Free T3 and T4 normal. -Physical therapy indicates that there is no need for continued physical therapy at this time. Physical therapy has been discontinued -Speech therapy initially evaluated patient on 04/12. MOCA score 8/30 indicating severe cognitive impairment, which may be his baseline. ST last evaluated patient on 05/06 still with moderate to severe cognitive deficits. Malnutrition: Evidenced by low BMI and physical exam. Weight has improved since admission. Pre-albumin 22. -Consulted bottom turner; recommends to continue Ensure Enlive tid and double portions/protein with meals COPD: chronic, does not appear to be in exacerbation. -Continue Spiriva Bipolar disorder: Continue home meds including [place] and Clozaril. -Monitor for neutropenia periodically due to Clozaril use. -Check lithium level periodically. DVT prophylaxis: Low risk, patient ambulating. Lovenox was discontinued. Discharge Planning Patient's sisters would like patient transferred to [place], attempting to get into [facility] home, waiting for acceptance. CM requested [facility] to evaluate for placement locally in the meantime. Jazmin Lino May 07, 2016 09:05
[2016-05-07] MEDS: TIOTROPIUM BROMIDE 18 MCG INH INH SCH (09:57)
[2016-05-07] MEDS: cloZAPine 100 MG TAB PO SCH ×2 (09:57→20:20)
[2016-05-07] MEDS: LITHIUM CARBONATE 300 MG TAB PO SCH ×2 (09:57→20:20)
[2016-05-07 20:00] VITALS: BP 104/64; PULSE 77; RESP 16; TEMP 97.2; O2SAT 94
[2016-05-08 08:00] VITALS: BP 118/78; PULSE 91; RESP 17; TEMP 97.6; O2SAT 95
[2016-05-08] MEDS: cloZAPine 100 MG TAB PO SCH ×2 (08:34→20:49)
[2016-05-08] MEDS: TIOTROPIUM BROMIDE 18 MCG INH INH SCH (08:34)
[2016-05-08] MEDS: LITHIUM CARBONATE 300 MG TAB PO SCH ×2 (08:34→20:49)
--- NOTE | 2016-05-08 13:56 | HHI.PR ---
Subjective Remarks Patient seen today for encephalopathy. No new complaints and no change. Care plan discussed with Kyung LOPEZ Objective Vitals Vital Signs Date Time Temp Pulse Resp B/P Pulse Ox O2 Delivery O2 Flow Rate FiO2 05/08/16 08:00 97.6 91 17 118/78 95 05/07/16 20:00 97.2 77 16 104/64 94 I/O 05/07/16 05/07/16 05/07/16 05/08/16 05/08/16 05/08/16 07:00 15:00 23:00 07:00 15:00 23:00 Intake Total 240 ml Balance 240 ml Intake Oral 240 ml # Voids 2 # Bowel Movements 0 Objective Remarks GENERAL: This is a well-nourished, well-developed patient, in no apparent distress. CARDIOVASCULAR: Regular rate and rhythm without murmurs, gallops, or rubs. RESPIRATORY: Clear to auscultation. Breath sounds equal bilaterally. No wheezes , rales, or rhonchi. GASTROINTESTINAL: Abdomen soft, non-tender, nondistended. Normal active bowel sounds MUSCULOSKELETAL: Extremities without clubbing, cyanosis, or edema. NEURO: Alert & Oriented x4 to person, place, time, situation. Moves all ext x4 Procedures none A/P Problem List: (1) Encephalopathy ICD Code: G93.40 Status: Acute Assessment and Plan Hospital day #63. Encephalopathy improving but still with moderate to severe cognitive deficits. COPD and bipolar disorder are stable Discharge Planning Case management aware of barriers to discharge Nighat Negron MD May 08, 2016 13:56
[2016-05-08 20:00] VITALS: BP 103/47; PULSE 74; RESP 20; TEMP 98.2; O2SAT 95
[2016-05-09 08:00] VITALS: BP 121/66; PULSE 76; RESP 18; TEMP 98.2; O2SAT 94
[2016-05-09] MEDS: LITHIUM CARBONATE 300 MG TAB PO SCH ×2 (08:36→20:07)
[2016-05-09] MEDS: cloZAPine 100 MG TAB PO SCH ×2 (08:36→20:07)
[2016-05-09] MEDS: TIOTROPIUM BROMIDE 18 MCG INH INH SCH (08:36)
--- NOTE | 2016-05-09 08:58 | HHI.PR ---
Subjective Remarks F/u for encephalopathy. No acute complaints. No change in clinical status. Objective Vitals Vital Signs Date Time Temp Pulse Resp B/P Pulse Ox O2 Delivery O2 Flow Rate FiO2 05/08/16 20:00 98.2 74 20 103/47 95 I/O 05/08/16 05/08/16 05/08/16 05/09/16 05/09/16 05/09/16 07:00 15:00 23:00 07:00 15:00 23:00 Intake Total 1420 ml Output Total 400 ml Balance 1020 ml Intake Oral 1420 ml Output Urine Total 400 ml # Bowel Movements 0 Objective Remarks GENERAL: Well developed patient in no apparent distress sitting in day room. CARDIOVASCULAR: Regular rate and rhythm. RESPIRATORY: No accessory muscle use. Mild wheezing throughout. GASTROINTESTINAL: Abdomen soft, non-tender, nondistended. NEUROLOGICAL: Awake and alert. Procedures none Urinary Catheter: No Vascular Central Line Catheter: No A/P Problem List: (1) Encephalopathy ICD Code: G93.40 Status: Acute Assessment and Plan 60-year-old male with a history of asthma, schizoaffective disorder, COPD presented to the ED with altered mental status from his [facility] who refused to take him back. [facility] reporting increasing confusion despite lactulose use. Transferred to for assisted care pending placement. Encephalopathy: Stable. Ammonia level on 03/05/16 was 68, on lactulose at [facility]. Presented back to ED on 03/06 with increasing confusion, Ammonia level 16. Has not been on lactulose since admission, and ammonia now wnl. No history of liver cirrhosis. -Chest x-ray 03/02 with scarring at the right lung base, but no acute infection. -Head CT 03/06 without acute abnormality. -UA 03/07 without infection. -Normal ammonia level on 03/14 s/p lactulose treatment. -TSH 1.170 on 03/02 yet 3.780 on 03/06. Free T3 and T4 normal. -Physical therapy indicates that there is no need for continued physical therapy at this time. Physical therapy has been discontinued -Speech therapy initially evaluated patient on 04/12. MOCA score 8/30 indicating severe cognitive impairment. ST last evaluated patient on 05/06 still with moderate to severe cognitive deficits with no functional progress toward goals; at baseline. ST signed off. Malnutrition: Evidenced by low BMI and physical exam. Weight has improved since admission. Pre-albumin 22. -Consulted construction pit worker; recommends to continue Ensure Enlive tid and double portions/protein with meals COPD: chronic, does not appear to be in exacerbation. -Continue Spiriva -Patient has some mild wheezing on exam today. Order Albuterol as needed. Bipolar disorder: Continue home meds including [place] and Clozaril. -Monitor for neutropenia periodically due to Clozaril use. -Check lithium level periodically. DVT prophylaxis: Low risk, patient ambulating. Lovenox was discontinued. Discharge Planning Patient's sisters would like patient transferred to [place], attempting to get into [facility], waiting for acceptance. CM requested [facility] to evaluate for placement locally in the meantime. Jazmin Lino May 09, 2016 08:58 Jazmin Lino May 09, 2016 08:58
[2016-05-09] MEDS ORDERED: RESP: ALBUTEROL 2.5 MG/3 ML NEB (PRN) NEB (10:15)
[2016-05-09 20:00] VITALS: BP 101/51; PULSE 78; RESP 20; TEMP 96; O2SAT 94
[2016-05-10 08:00] VITALS: BP 142/69; PULSE 76; RESP 20; TEMP 97.6; O2SAT 94
[2016-05-10] MEDS: cloZAPine 100 MG TAB PO SCH ×2 (08:30→21:29)
[2016-05-10] MEDS: LITHIUM CARBONATE 300 MG TAB PO SCH ×2 (08:30→21:29)
[2016-05-10] MEDS: TIOTROPIUM BROMIDE 18 MCG INH INH SCH (08:30)
[2016-05-10] MEDS ORDERED: CLOZ100T3 PO (11:01)
[2016-05-10] MEDS ORDERED: VENTAER INH (11:01)
[2016-05-10] MEDS ORDERED: SPIRCAP INH (11:01)
[2016-05-10] MEDS ORDERED: LITH300C2 PO (11:01)
--- NOTE | 2016-05-10 11:03 | HHI.DCPOC ---
Discharge Care Plan Diagnosis: (1) Encephalopathy (2) Malnutrition Goals to Promote Your Health * To prevent worsening of your condition and complications * To maintain your health at the optimal level Directions to Meet Your Goals Take your medications as prescribed Follow your dietary instruction Follow activity as directed Keep your appointments as scheduled Take your immunizations and boosters as scheduled If your symptoms worsen call your PCP, if no PCP go to Urgent Care Center or Emergency Room Smoking is Dangerous to Your Health. Avoid second hand smoke Call the 24-hour hour crisis hotline for domestic abuse at Jazmin Lino May 10, 2016 11:03
--- NOTE | 2016-05-10 12:12 | HHI.PR ---
Subjective Remarks No acute complaints. No change in clinical status. Objective Vitals Vital Signs Date Time Temp Pulse Resp B/P Pulse Ox O2 Delivery O2 Flow Rate FiO2 05/10/16 08:00 97.6 76 20 142/69 94 05/09/16 20:00 96.0 78 20 101/51 94 I/O 05/09/16 05/09/16 05/09/16 05/10/16 05/10/16 05/10/16 07:00 15:00 23:00 07:00 15:00 23:00 Intake Total 1200 ml 400 ml Balance 1200 ml 400 ml Intake Oral 1200 ml 400 ml # Voids 6 2 # Bowel Movements 0 0 Objective Remarks GENERAL: Well developed patient in no apparent distress. CARDIOVASCULAR: Regular rate and rhythm. RESPIRATORY: No accessory muscle use. Mild inspiratory wheezing anteriorly. Mild expiratory wheezing over B/L upper lobes posteriorly. GASTROINTESTINAL: Abdomen soft, non-tender, nondistended. NEUROLOGICAL: Awake and alert. Procedures none Urinary Catheter: No Vascular Central Line Catheter: No A/P Problem List: (1) Encephalopathy ICD Code: G93.40 Status: Acute Assessment and Plan 60-year-old male with a history of asthma, schizoaffective disorder, COPD presented to the ED with altered mental status from his [facility] who refused to take him back. [facility] reporting increasing confusion despite lactulose use. Transferred to for senior care care pending placement. Encephalopathy: Stable. Ammonia level on 03/05/16 was 68, on lactulose at [facility]. Presented back to ED on 03/06 with increasing confusion, Ammonia level 16. Has not been on lactulose since admission, and ammonia now wnl. No history of liver cirrhosis. -Chest x-ray 03/02 with scarring at the right lung base, but no acute infection. -Head CT 03/06 without acute abnormality. -UA 03/07 without infection. -Normal ammonia level on 03/14 s/p lactulose treatment. -TSH 1.170 on 03/02 yet 3.780 on 03/06. Free T3 and T4 normal. -Physical therapy indicates that there is no need for continued physical therapy at this time. Physical therapy has been discontinued -Speech therapy initially evaluated patient on 04/12. MOCA score 8/30 indicating severe [address] impairment. ST last evaluated patient on 05/06 still with moderate to severe cognitive deficits with no functional progress toward goals; at baseline. ST signed off. Malnutrition: Evidenced by low BMI and physical exam. Weight has improved since admission. Pre-albumin 22. -Consulted dispatcher relay; recommends to continue Ensure Enlive tid and double portions/protein with meals COPD: chronic, does not appear to be in exacerbation. Patient only has mild wheezing on exam, likely chronic. -Continue Spiriva -Albuterol prn Bipolar disorder: Continue home meds including [place] and Clozaril. -Monitor for neutropenia periodically due to Clozaril use. -Check lithium level periodically. DVT prophylaxis: Low risk, patient ambulating. Lovenox was discontinued. Discharge Planning Patient's sisters would like patient transferred to [place]. 05/10/16: Spoke with Tim Cedillo, disease case manager rn. Patient has been financially accepted to [facility]; just awaiting final medical acceptance. Patient is medically cleared for discharge. Patient to be discharged once case management arrangements made. Prescriptions printed, in chart. Jazmin Lino May 10, 2016 12:12
[2016-05-10 20:00] VITALS: BP 119/65; PULSE 73; RESP 20; TEMP 97.6; O2SAT 95
[2016-05-11 08:00] VITALS: BP 121/65; PULSE 69; RESP 19; TEMP 97.6; O2SAT 91
[2016-05-11] MEDS: LITHIUM CARBONATE 300 MG TAB PO SCH ×2 (08:25→19:36)
[2016-05-11] MEDS: cloZAPine 100 MG TAB PO SCH ×2 (08:25→19:36)
[2016-05-11] MEDS: TIOTROPIUM BROMIDE 18 MCG INH INH SCH (08:26)
--- NOTE | 2016-05-11 09:52 | HHI.PR ---
Subjective Remarks No acute complaints. No change in clinical status. Objective Vitals Vital Signs Date Time Temp Pulse Resp B/P Pulse Ox O2 Delivery O2 Flow Rate FiO2 05/11/16 08:00 97.6 69 19 121/65 91 05/10/16 20:00 97.6 73 20 119/65 95 I/O 05/10/16 05/10/16 05/10/16 05/11/16 05/11/16 05/11/16 07:00 15:00 23:00 07:00 15:00 23:00 Intake Total 400 ml 1250 ml 0 ml 240 ml Balance 400 ml 1250 ml 0 ml 240 ml Intake Oral 400 ml 1250 ml 240 ml IV Total 0 ml # Voids 2 6 1 # Bowel Movements 0 1 0 Objective Remarks GENERAL: Well developed patient in no apparent distress sitting in day room. CARDIOVASCULAR: Regular rate and rhythm. RESPIRATORY: No accessory muscle use. Mild expiratory wheezing anteriorly and posteriorly. NEUROLOGICAL: Awake and alert. Procedures none Urinary Catheter: No Vascular Central Line Catheter: No A/P Problem List: (1) Encephalopathy ICD Code: G93.40 Status: Acute Assessment and Plan 60-year-old male with a history of asthma, schizoaffective disorder, COPD presented to the ED with altered mental status from his [facility] who refused to take him back. [facility] reporting increasing confusion despite lactulose use. Transferred to for superintendent container terminal care pending placement. Encephalopathy: Stable. Ammonia level on 03/05/16 was 68, on lactulose at [facility]. Presented back to ED on 03/06 with increasing confusion, Ammonia level 16. Has not been on lactulose since admission, and ammonia now wnl. No history of liver cirrhosis. -Chest x-ray 03/02 with scarring at the right lung base, but no acute infection. -Head CT 03/06 without acute abnormality. -UA 03/07 without infection. -Normal ammonia level on 03/14 s/p lactulose treatment. -TSH 1.170 on 03/02 yet 3.780 on 03/06. Free T3 and T4 normal. -Physical therapy indicates that there is no need for continued physical therapy at this time. Physical therapy has been discontinued -Speech therapy initially evaluated patient on 04/12. MOCA score 8/30 indicating severe cognitive impairment. ST last evaluated patient on 05/06 still with moderate to severe cognitive deficits with no functional progress toward goals; at baseline. ST signed off. Malnutrition: Evidenced by low BMI and physical exam. Weight has improved since admission. Pre-albumin 22. -Consulted medical doctor nuclear medicine; recommends to continue Ensure Enlive tid and double portions/protein with meals COPD: chronic, does not appear to be in exacerbation. Patient only has mild wheezing on exam, likely chronic. -Continue Spiriva -Albuterol prn; I asked patient if he wanted treatment this morning and he declined. Bipolar disorder: Continue home meds including [place] and Clozaril. -Monitor for neutropenia periodically due to Clozaril use. -Check lithium level periodically. DVT prophylaxis: Low risk, patient ambulating. Lovenox was discontinued. Discharge Planning Patient's sisters would like patient transferred to [place]. 05/10/16: Spoke with Tim Cedillo, case sealer. Patient has been financially accepted to [facility]; just awaiting final medical acceptance. Patient is medically cleared for discharge. Patient to be discharged once case management arrangements made. Prescriptions printed, in chart. Jazmin Lino May 11, 2016 09:52
[2016-05-11 21:06] VITALS: BP 115/63; PULSE 73; RESP 16; TEMP 97.8; O2SAT 95
[2016-05-12 08:00] VITALS: BP 110/64; PULSE 67; RESP 18; TEMP 97.9; O2SAT 93
[2016-05-12] MEDS: LITHIUM CARBONATE 300 MG TAB PO SCH ×2 (08:21→20:31)
[2016-05-12] MEDS: cloZAPine 100 MG TAB PO SCH ×2 (08:21→20:31)
[2016-05-12] MEDS: TIOTROPIUM BROMIDE 18 MCG INH INH SCH (08:21)
[2016-05-12 09:42] VITALS: O2SAT 91
--- NOTE | 2016-05-12 17:06 | HHI.PR ---
Subjective Remarks Patient seen in dayroom without complaints. No new events. Hospital day 67 Objective Vitals Vital Signs Date Time Temp Pulse Resp B/P Pulse Ox O2 Delivery O2 Flow Rate FiO2 05/12/16 09:42 91 05/12/16 08:00 97.9 67 18 110/64 93 05/11/16 21:06 97.8 73 16 115/63 95 I/O 05/11/16 05/11/16 05/11/16 05/12/16 05/12/16 05/12/16 07:00 15:00 23:00 07:00 15:00 23:00 Intake Total 240 ml Balance 240 ml Intake Oral 240 ml # Voids 1 3 3 # Bowel Movements 0 Objective Remarks GENERAL: This is a well-nourished, well-developed patient, in no apparent distress. CARDIOVASCULAR: Regular rate and rhythm without murmurs, gallops, or rubs. RESPIRATORY: Clear to auscultation. Breath sounds equal bilaterally. No wheezes , rales, or rhonchi. GASTROINTESTINAL: Abdomen soft, non-tender, nondistended. Normal active bowel sounds MUSCULOSKELETAL: Extremities without clubbing, cyanosis, or edema. NEURO: Alert & Oriented x4 to person, place, time, situation. Moves all ext x4 Procedures none A/P Problem List: (1) Encephalopathy ICD Code: G93.40 Status: Acute Assessment and Plan Hospital day #67. Encephalopathy improving but still with moderate to severe cognitive deficits requiring placement. We'll check lithium level as well as BMP tomorrow. COPD and bipolar disorder are stable Patient continues to gain weight with diet and with supplements Discharge Planning Case management aware of barriers to discharge Nighat Negron MD May 12, 2016 17:06
[2016-05-12 21:15] VITALS: BP 112/63; PULSE 74; RESP 16; TEMP 98; O2SAT 94
[2016-05-13 05:57] LABS: POTASSIUM 4.1 MEQ/L (3.5-5.1)
[2016-05-13 06:04] LABS: BICARBONATE 29.1 MEQ/L (21.0-32.0)
[2016-05-13 08:00] VITALS: BP 123/68; PULSE 85; RESP 20; TEMP 97.2; O2SAT 93
[2016-05-13] MEDS: cloZAPine 100 MG TAB PO SCH ×2 (09:55→20:56)
[2016-05-13] MEDS: TIOTROPIUM BROMIDE 18 MCG INH INH SCH (09:55)
[2016-05-13] MEDS: LITHIUM CARBONATE 300 MG TAB PO SCH ×2 (09:55→20:55)
--- NOTE | 2016-05-13 10:05 | HHI.PR ---
Subjective Remarks No acute complaints. No change in clinical status. Objective Vitals Vital Signs Date Time Temp Pulse Resp B/P Pulse Ox O2 Delivery O2 Flow Rate FiO2 05/13/16 08:00 97.2 85 20 123/68 93 05/12/16 21:15 98.0 74 16 112/63 94 I/O 05/12/16 05/12/16 05/12/16 05/13/16 05/13/16 05/13/16 07:00 15:00 23:00 07:00 15:00 23:00 # Voids 3 3 3 Result Diagram: 05/13/16 0520 Objective Remarks GENERAL: Well developed patient in no apparent distress sitting in day room. CARDIOVASCULAR: Regular rate and rhythm. RESPIRATORY: No accessory muscle use. Clear to auscultation bilaterally. GASTROINTESTINAL: Abdomen soft, nontender, nondistended. NEUROLOGICAL: Awake and alert. Ambulatory. Procedures none Urinary Catheter: No Vascular Central Line Catheter: No A/P Problem List: (1) Encephalopathy ICD Code: G93.40 Status: Acute Assessment and Plan 60-year-old male with a history of asthma, schizoaffective disorder, COPD presented to the ED with altered mental status from his [facility] who refused to take him back. [facility] reporting increasing confusion despite lactulose use. Transferred to for extermination inspector care pending placement. Encephalopathy: Stable. Ammonia level on 03/05/16 was 68, on lactulose at [facility]. Presented back to ED on 03/06 with increasing confusion, Ammonia level 16. Has not been on lactulose since admission, and ammonia now wnl. No history of liver cirrhosis. -Chest x-ray 03/02 with scarring at the right lung base, but no acute infection. -Head CT 03/06 without acute abnormality. -UA 03/07 without infection. -Normal ammonia level on 03/14 s/p lactulose treatment. -TSH 1.170 on 03/02 yet 3.780 on 03/06. Free T3 and T4 normal. -Physical therapy indicates that there is no need for continued physical therapy at this time. Physical therapy has been discontinued -Speech therapy initially evaluated patient on 04/12. MOCA score 8/30 indicating severe cognitive impairment. ST last evaluated patient on 05/06 still with moderate to severe cognitive deficits with no functional progress toward goals; at baseline. ST signed off. Malnutrition: Evidenced by low BMI and physical exam. Weight has improved since admission. Pre-albumin 22. -Consulted office technician; recommends to continue Ensure Enlive tid and double portions/protein with meals COPD: chronic, does not appear to be in exacerbation. -Continue Spiriva -Albuterol prn. Bipolar disorder: Continue home meds including [place] and Clozaril. -Monitor for neutropenia periodically due to Clozaril use. -Check lithium level periodically. DVT prophylaxis: Low risk, patient ambulating. Lovenox was discontinued. Discharge Planning Patient's sisters would like patient transferred to [place]. 05/10/16: Spoke with Tim Cedillo, test case developer. Patient has been financially accepted to [facility]; just awaiting final medical acceptance. Patient is medically cleared for discharge. Patient to be discharged once case management arrangements made. Prescriptions printed, in chart. Jazmin Lino May 13, 2016 10:05
[2016-05-13 20:00] VITALS: BP 106/52; PULSE 80; RESP 16; TEMP 97.6; O2SAT 96
[2016-05-14 08:00] VITALS: BP 120/71; PULSE 74; RESP 18; TEMP 97.7; O2SAT 93
[2016-05-14] MEDS: LITHIUM CARBONATE 300 MG TAB PO SCH ×2 (08:30→20:41)
[2016-05-14] MEDS: cloZAPine 100 MG TAB PO SCH ×2 (08:30→20:41)
[2016-05-14] MEDS: TIOTROPIUM BROMIDE 18 MCG INH INH SCH (08:31)
--- NOTE | 2016-05-14 09:43 | HHI.PR ---
Subjective Remarks Patient's exam today. Patient denies any new complaints. No change in clinical status. Objective Vitals Vital Signs Date Time Temp Pulse Resp B/P Pulse Ox O2 Delivery O2 Flow Rate FiO2 05/14/16 08:00 97.7 74 18 120/71 93 05/13/16 20:00 97.6 80 16 106/52 96 I/O 05/13/16 05/13/16 05/13/16 05/14/16 05/14/16 05/14/16 07:00 15:00 23:00 07:00 15:00 23:00 Intake Total 1100 ml 500 ml 250 ml Balance 1100 ml 500 ml 250 ml Intake Oral 1100 ml 500 ml 250 ml # Voids 3 5 2 2 # Bowel Movements 1 Result Diagram: 05/13/16 0520 Objective Remarks GENERAL: Well-developed, well-nourished, in no acute distress. alert, orientated to [facility], person, not orientated to year, month, state HEENT: Head is normocephalic without any lesions or masses noted. Facial features are symmetric. Eyes: Extraocular muscles are intact. Conjunctivae were clear NECK: Trachea midline no deviation. CARDIAC: Regular rhythm, regular rate. S1/S2 are heard. No murmurs gallops or rubs. LUNGS: Clear to auscultation bilaterally. No wheeze, rhonchi or rales. No use of accessory muscles on inspiration or expiration. ABDOMEN: Soft, nontender. Nondistended. Bowel sounds heard in all 4 quadrants. No organomegaly or masses. Negative rebound, negative guarding EXTREMITIES: No edema, pulses are equal bilaterally. No cyanosis or clubbing NEUROLOGY: Mood and affect appear appropriate. Cranial nerves II through XII grossly intact. Moving all extremities, speech is clear Procedures none Urinary Catheter: No Vascular Central Line Catheter: No A/P Assessment and Plan 60-year-old male with a history of asthma, schizoaffective disorder, COPD presented to the ED with altered mental status from his [facility] who refused to take him back. [facility] reporting increasing confusion despite lactulose use. Records reviewed. Encephalopathy: baseline. -Chest x-ray 03/02 personally reviewed with scarring at the right lung base, but no acute infection. -Head CT 03/06 without acute abnormality. -UA 03/07 without infection. -Normal ammonia level on 03/14 s/p lactulose treatment. -TSH 1.170 on 03/02 yet 3.780 on 03/06. Free T3, free T4 were normal -Physical therapy indicates that there is no need for continued physical therapy at this time. Physical therapy has been discontinued on 03/29. However they recommend patient to have PT at rehabilitation Malnutrition: Evidenced by low BMI and physical exam. Improved -Consulted construction consultant, started patient on Regular diet with Ensure Enlive on all meal trays. Petroleum Refining Firer following. -Prealbumin 22 COPD: chronic and stable, does not appear to be in exacerbation. Bipolar disorder: Continue home meds including [place] and Clozaril. [place] level in the therapeutic range. -Monitor for neutropenia and lithium level monthly, next time 05/15/15. DVT prophylaxis: Low risk, patient ambulating Discharge Planning Patient's sisters would like patient transferred to [place], attempting to get into [facility]. CM still looking into local placement. 05/09/16 1359 SPOKE WITH RANDA JORGENSEN AT [facility] IN [place] AND PER FINANCIAL STATUS PATIENT ACCEPTED. WAS DIRECTED TO CALL ADMISSIONS AND SPEAK TO JONATHON TOUSSAINT AT [phone] FAX [phone]. SHE REQUESTED UPDATED CLINICAL AND STATED SHE WILL GET BACK TO ME WILL F/U KENDRICK LOJA LPN/BAIRON/Surya Galicia May 14, 2016 09:43
[2016-05-14 20:00] VITALS: BP 117/59; PULSE 75; RESP 20; TEMP 97.9; O2SAT 94
[2016-05-15 08:00] VITALS: BP 104/58; PULSE 68; RESP 18; TEMP 97; O2SAT 94
--- NOTE | 2016-05-15 08:39 | HHI.PR ---
Subjective Remarks Patient seen and examined today. Patient denies any new complaints. Awaiting case management for discharge planning Objective Vitals Vital Signs Date Time Temp Pulse Resp B/P Pulse Ox O2 Delivery O2 Flow Rate FiO2 05/14/16 20:00 97.9 75 20 117/59 94 I/O 05/14/16 05/14/16 05/14/16 05/15/16 05/15/16 05/15/16 07:00 15:00 23:00 07:00 15:00 23:00 Intake Total 250 ml 1200 ml 480 ml 480 ml Balance 250 ml 1200 ml 480 ml 480 ml Intake Oral 250 ml 1200 ml 480 ml 480 ml # Voids 2 7 3 2 # Bowel Movements 1 0 0 Result Diagram: 05/13/16 0520 Objective Remarks GENERAL: Well-developed, well-nourished, in no acute distress. alert, orientated to [facility], person, not orientated to year, month, state HEENT: Head is normocephalic without any lesions or masses noted. Facial features are symmetric. Eyes: Extraocular muscles are intact. Conjunctivae were clear NECK: Trachea midline no deviation. CARDIAC: Regular rhythm, regular rate. S1/S2 are heard. No murmurs gallops or rubs. LUNGS: Clear to auscultation bilaterally. No wheeze, rhonchi or rales. No use of accessory muscles on inspiration or expiration. ABDOMEN: Soft, nontender. Nondistended. Bowel sounds heard in all 4 quadrants. No organomegaly or masses. Negative rebound, negative guarding EXTREMITIES: No edema, pulses are equal bilaterally. No cyanosis or clubbing NEUROLOGY: Mood and affect appear appropriate. Cranial nerves II through XII grossly intact. Moving all extremities, speech is clear Procedures none Urinary Catheter: No Vascular Central Line Catheter: No A/P Assessment and Plan 60-year-old male with a history of asthma, schizoaffective disorder, COPD presented to the ED with altered mental status from his [facility] who refused to take him back. [facility] reporting increasing confusion despite lactulose use. Records reviewed. Encephalopathy: baseline. -Chest x-ray 03/02 personally reviewed with scarring at the right lung base, but no acute infection. -Head CT 03/06 without acute abnormality. -UA 03/07 without infection. -Normal ammonia level on 03/14 s/p lactulose treatment. -TSH 1.170 on 03/02 yet 3.780 on 03/06. Free T3, free T4 were normal -Physical therapy indicates that there is no need for continued physical therapy at this time. Physical therapy has been discontinued on 03/29. However they recommend patient to have PT at rehabilitation Malnutrition: Evidenced by low BMI and physical exam. Improved -Consulted emergency nurse, started patient on Regular diet with Ensure Enlive on all meal trays. Purchasing Department Clerk following. -Prealbumin 22 COPD: chronic and stable, does not appear to be in exacerbation. Bipolar disorder: Continue home meds including [place] and Clozaril. [place] level in the therapeutic range. -Monitor for neutropenia and lithium level monthly, next time 05/15/15. DVT prophylaxis: Low risk, patient ambulating Discharge Planning Patient's sisters would like patient transferred to [place], attempting to get into [facility] home. CM still looking into local placement. Surya Neely May 15, 2016 08:39
[2016-05-15] MEDS: cloZAPine 100 MG TAB PO SCH ×2 (09:01→20:53)
[2016-05-15] MEDS: LITHIUM CARBONATE 300 MG TAB PO SCH ×2 (09:02→20:54)
[2016-05-15] MEDS: TIOTROPIUM BROMIDE 18 MCG INH INH SCH (09:03)
[2016-05-15 20:00] VITALS: BP 107/61; PULSE 70; RESP 18; TEMP 96.9; O2SAT 96
[2016-05-16 08:00] VITALS: BP 112/79; PULSE 79; RESP 20; TEMP 96.7; O2SAT 96
[2016-05-16] MEDS: cloZAPine 100 MG TAB PO SCH ×2 (08:02→20:48)
[2016-05-16] MEDS: LITHIUM CARBONATE 300 MG TAB PO SCH ×2 (08:02→20:57)
[2016-05-16] MEDS: TIOTROPIUM BROMIDE 18 MCG INH INH SCH (08:02)
--- NOTE | 2016-05-16 09:34 | HHI.PR ---
Subjective Remarks Patient seen and examined today. Patient denies any new complaints. No change in clinical status. Awaiting case management for discharge planning Objective Vitals Vital Signs Date Time Temp Pulse Resp B/P Pulse Ox O2 Delivery O2 Flow Rate FiO2 05/16/16 08:00 96.7 79 20 112/79 96 05/15/16 20:00 96.9 70 18 107/61 96 I/O 05/15/16 05/15/16 05/15/16 05/16/16 05/16/16 05/16/16 07:00 15:00 23:00 07:00 15:00 23:00 Intake Total 480 ml 1250 ml 480 ml 600 ml Balance 480 ml 1250 ml 480 ml 600 ml Intake Oral 480 ml 1250 ml 480 ml 600 ml # Voids 2 7 2 3 # Bowel Movements 0 2 0 0 Result Diagram: 05/13/16 0520 Objective Remarks GENERAL: Well-developed, well-nourished, in no acute distress. alert, orientated to [facility], person, not orientated to year, month, state HEENT: Head is normocephalic without any lesions or masses noted. Facial features are symmetric. Eyes: Extraocular muscles are intact. Conjunctivae were clear NECK: Trachea midline no deviation. CARDIAC: Regular rhythm, regular rate. S1/S2 are heard. No murmurs gallops or rubs. LUNGS: Clear to auscultation bilaterally. No wheeze, rhonchi or rales. No use of accessory muscles on inspiration or expiration. ABDOMEN: Soft, nontender. Nondistended. Bowel sounds heard in all 4 quadrants. No organomegaly or masses. Negative rebound, negative guarding EXTREMITIES: No edema, pulses are equal bilaterally. No cyanosis or clubbing NEUROLOGY: Mood and affect appear appropriate. Cranial nerves II through XII grossly intact. Moving all extremities, speech is clear Procedures none Urinary Catheter: No Vascular Central Line Catheter: No A/P Assessment and Plan 60-year-old male with a history of asthma, schizoaffective disorder, COPD presented to the ED with altered mental status from his [facility] who refused to take him back. [facility] reporting increasing confusion despite lactulose use. Records reviewed. Encephalopathy: baseline. -Chest x-ray 03/02 personally reviewed with scarring at the right lung base, but no acute infection. -Head CT 03/06 without acute abnormality. -UA 03/07 without infection. -Normal ammonia level on 03/14 s/p lactulose treatment. -TSH 1.170 on 03/02 yet 3.780 on 03/06. Free T3, free T4 were normal -Physical therapy indicates that there is no need for continued physical therapy at this time. Physical therapy has been discontinued on 03/29. However they recommend patient to have PT at rehabilitation Malnutrition: Evidenced by low BMI and physical exam. Improved -Consulted thread pulling machine attendant, started patient on Regular diet with Ensure Enlive on all meal trays. Montessori Toddler Teacher following. -Prealbumin 22 COPD: chronic and stable, does not appear to be in exacerbation. Bipolar disorder: Continue home meds including [place] and Clozaril. [place] level in the therapeutic range. -Monitor for neutropenia and lithium level monthly, next time 05/15/15. DVT prophylaxis: Low risk, patient ambulating Discharge Planning Patient's sisters would like patient transferred to [place], patient has been discharged since 05/10/16. Awaiting pickup from [place] Surya Neely May 16, 2016 09:34
[2016-05-16 20:00] VITALS: BP 90/44; PULSE 78; RESP 18; TEMP 97.6; O2SAT 93
[2016-05-17 08:00] VITALS: BP 103/54; PULSE 70; RESP 18; TEMP 98; O2SAT 94
--- NOTE | 2016-05-17 08:38 | HHI.PR ---
Subjective Remarks Patient seen and examined today. Patient denies any new complaints. No change in clinical status. Awaiting case management for discharge planning Objective Vitals Vital Signs Date Time Temp Pulse Resp B/P Pulse Ox O2 Delivery O2 Flow Rate FiO2 05/16/16 20:00 97.6 78 18 90/44 93 I/O 05/16/16 05/16/16 05/16/16 05/17/16 05/17/16 05/17/16 07:00 15:00 23:00 07:00 15:00 23:00 Intake Total 600 ml 1260 ml Balance 600 ml 1260 ml Intake Oral 600 ml 1260 ml # Voids 3 4 # Bowel Movements 0 1 Result Diagram: 05/13/16 0520 Objective Remarks GENERAL: Well-developed, well-nourished, in no acute distress. alert, orientated to [facility], person, not orientated to year, month, state HEENT: Head is normocephalic without any lesions or masses noted. Facial features are symmetric. Eyes: Extraocular muscles are intact. Conjunctivae were clear NECK: Trachea midline no deviation. CARDIAC: Regular rhythm, regular rate. S1/S2 are heard. No murmurs gallops or rubs. LUNGS: Clear to auscultation bilaterally. No wheeze, rhonchi or rales. No use of accessory muscles on inspiration or expiration. ABDOMEN: Soft, nontender. Nondistended. Bowel sounds heard in all 4 quadrants. No organomegaly or masses. Negative rebound, negative guarding EXTREMITIES: No edema, pulses are equal bilaterally. No cyanosis or clubbing NEUROLOGY: Mood and affect appear appropriate. Cranial nerves II through XII grossly intact. Moving all extremities, speech is clear Procedures none Urinary Catheter: No Vascular Central Line Catheter: No A/P Assessment and Plan 60-year-old male with a history of asthma, schizoaffective disorder, COPD presented to the ED with altered mental status from his [facility] who refused to take [facility] back. [facility] reporting increasing confusion despite lactulose use. Records reviewed. Encephalopathy: baseline. -Chest x-ray 03/02 personally reviewed with scarring at the right lung base, but no acute infection. -Head CT 03/06 without acute abnormality. -UA 03/07 without infection. -Normal ammonia level on 03/14 s/p lactulose treatment. -TSH 1.170 on 03/02 yet 3.780 on 03/06. Free T3, free T4 were normal -Physical therapy indicates that there is no need for continued physical therapy at this time. Physical therapy has been discontinued on 03/29. However they recommend patient to have PT at rehabilitation Malnutrition: Evidenced by low BMI and physical exam. Improved -Consulted home appliance technician, started patient on Regular diet with Ensure Enlive on all meal trays. Instrumentation And Controls Technician following. -Prealbumin 22 COPD: chronic and stable, does not appear to be in exacerbation. Bipolar disorder: Continue home meds including [place] and Clozaril. [place] level in the therapeutic range. -Monitor for neutropenia and lithium level monthly, next time 05/15/15. DVT prophylaxis: Low risk, patient ambulating Discharge Planning Patient's sisters would like patient transferred to [place], patient has been discharged since 05/10/16. Awaiting pickup from [place] Surya Neely May 17, 2016 08:38
[2016-05-17] MEDS: cloZAPine 100 MG TAB PO SCH ×2 (09:29→20:32)
[2016-05-17] MEDS: TIOTROPIUM BROMIDE 18 MCG INH INH SCH (09:29)
[2016-05-17] MEDS: LITHIUM CARBONATE 300 MG TAB PO SCH ×2 (09:30→20:32)
[2016-05-17 20:00] VITALS: BP 115/67; PULSE 69; RESP 18; TEMP 98; O2SAT 97
[2016-05-18 08:00] VITALS: BP 110/62; PULSE 62; RESP 18; TEMP 97.9; O2SAT 97
[2016-05-18] MEDS: cloZAPine 100 MG TAB PO SCH ×2 (09:06→20:28)
[2016-05-18] MEDS: TIOTROPIUM BROMIDE 18 MCG INH INH SCH (09:06)
[2016-05-18] MEDS: LITHIUM CARBONATE 300 MG TAB PO SCH ×2 (09:06→20:30)
--- NOTE | 2016-05-18 10:12 | HHI.PR ---
Subjective Remarks Patient seen and examined today. Patient denies any new complaints. No change in clinical status. Awaiting case management for discharge planning. Objective Vitals Vital Signs Date Time Temp Pulse Resp B/P Pulse Ox O2 Delivery O2 Flow Rate FiO2 05/18/16 08:00 97.9 62 18 110/62 97 05/17/16 20:00 98.0 69 18 115/67 97 I/O 05/17/16 05/17/16 05/17/16 05/18/16 05/18/16 05/18/16 07:00 15:00 23:00 07:00 15:00 23:00 Intake Total 1400 ml Balance 1400 ml Intake Oral 1400 ml # Voids 4 3 2 # Bowel Movements 1 0 1 Objective Remarks GENERAL: Well-developed, well-nourished, in no acute distress. alert, orientated to [facility], person, not orientated to year, month, state HEENT: Head is normocephalic without any lesions or masses noted. Facial features are symmetric. Eyes: Extraocular muscles are intact. Conjunctivae were clear NECK: Trachea midline no deviation. CARDIAC: Regular rhythm, regular rate. S1/S2 are heard. No murmurs gallops or rubs. LUNGS: Clear to auscultation bilaterally. No wheeze, rhonchi or rales. No use of accessory muscles on inspiration or expiration. ABDOMEN: Soft, nontender. Nondistended. Bowel sounds heard in all 4 quadrants. No organomegaly or masses. Negative rebound, negative guarding EXTREMITIES: No edema, pulses are equal bilaterally. No cyanosis or clubbing NEUROLOGY: Mood and affect appear appropriate. Cranial nerves II through XII grossly intact. Moving all extremities, speech is clear Procedures none Urinary Catheter: No Vascular Central Line Catheter: No A/P Assessment and Plan 60-year-old male with a history of asthma, schizoaffective disorder, COPD presented to the ED with altered mental status from his [facility] who refused to take him back. SNF reporting increasing confusion despite lactulose use. Records reviewed. Encephalopathy: baseline. -Chest x-ray 03/02 personally reviewed with scarring at the right lung base, but no acute infection. -Head CT 03/06 without acute abnormality. -UA 03/07 without infection. -Normal ammonia level on 03/14 s/p lactulose treatment. -TSH 1.170 on 03/02 yet 3.780 on 03/06. Free T3, free T4 were normal -Physical therapy indicates that there is no need for continued physical therapy at this time. Physical therapy has been discontinued on 03/29. However they recommend patient to have PT at rehabilitation Malnutrition: Evidenced by low BMI and physical exam. Improved -Consulted benefit director, started patient on Regular diet with Ensure Enlive on all meal trays. Associate Merchant following. -Prealbumin 22 COPD: chronic and stable, does not appear to be in exacerbation. Bipolar disorder: Continue home meds including [place] and Clozaril. [place] level in the therapeutic range. -Monitor for neutropenia and lithium level monthly, next time 05/15/15. DVT prophylaxis: Low risk, patient ambulating Discharge Planning Patient's sisters would like patient transferred to [place], patient has been discharged since 05/10/16. Awaiting pickup from [place] Surya Neely May 18, 2016 10:12
[2016-05-18 20:00] VITALS: BP 113/65; PULSE 70; RESP 16; TEMP 98; O2SAT 93
[2016-05-19 08:00] VITALS: BP 100/59; PULSE 61; RESP 20; TEMP 97.9; O2SAT 93
[2016-05-19] MEDS: TIOTROPIUM BROMIDE 18 MCG INH INH SCH (09:43)
[2016-05-19] MEDS: LITHIUM CARBONATE 300 MG TAB PO SCH ×2 (09:45→20:48)
[2016-05-19] MEDS: cloZAPine 100 MG TAB PO SCH ×2 (09:45→20:46)
--- NOTE | 2016-05-19 09:53 | HHI.PR ---
Subjective Remarks Patient seen and examined today. Patient denies any new complaints. No change in clinical status. Awaiting case management for discharge planning Objective Vitals Vital Signs Date Time Temp Pulse Resp B/P Pulse Ox O2 Delivery O2 Flow Rate FiO2 05/19/16 08:00 97.9 61 20 100/59 93 05/18/16 20:00 98.0 70 16 113/65 93 I/O 05/18/16 05/18/16 05/18/16 05/19/16 05/19/16 05/19/16 07:00 15:00 23:00 07:00 15:00 23:00 Intake Total 1600 ml 600 ml Balance 1600 ml 600 ml Intake Oral 1600 ml 600 ml # Voids 2 8 3 2 # Bowel Movements 1 1 0 0 Objective Remarks GENERAL: Well-developed, well-nourished, in no acute distress. alert, orientated to [facility], person, not orientated to year, month, state HEENT: Head is normocephalic without any lesions or masses noted. Facial features are symmetric. Eyes: Extraocular muscles are intact. Conjunctivae were clear NECK: Trachea midline no deviation. CARDIAC: Regular rhythm, regular rate. S1/S2 are heard. No murmurs gallops or rubs. LUNGS: Clear to auscultation bilaterally. No wheeze, rhonchi or rales. No use of accessory muscles on inspiration or expiration. ABDOMEN: Soft, nontender. Nondistended. Bowel sounds heard in all 4 quadrants. No organomegaly or masses. Negative rebound, negative guarding EXTREMITIES: No edema, pulses are equal bilaterally. No cyanosis or clubbing NEUROLOGY: Mood and affect appear appropriate. Cranial nerves II through XII grossly intact. Moving all extremities, speech is clear Procedures none Urinary Catheter: No Vascular Central Line Catheter: No A/P Assessment and Plan 60-year-old male with a history of asthma, schizoaffective disorder, COPD presented to the ED with altered mental status from his [facility] who refused to take him back. [facility] reporting increasing confusion despite lactulose use. Records reviewed. Encephalopathy: baseline. -Chest x-ray 03/02 personally reviewed with scarring at the right lung base, but no acute infection. -Head CT 03/06 without acute abnormality. -UA 03/07 without infection. -Normal ammonia level on 03/14 s/p lactulose treatment. -TSH 1.170 on 03/02 yet 3.780 on 03/06. Free T3, free T4 were normal -Physical therapy indicates that there is no need for continued physical therapy at this time. Physical therapy has been discontinued on 03/29. However they recommend patient to have PT at rehabilitation Malnutrition: Evidenced by low BMI and physical exam. Improved -Consulted cloth finishing range operator, started patient on Regular diet with Ensure Enlive on all meal trays. Absorption Operator following. -Prealbumin 22 COPD: chronic and stable, does not appear to be in exacerbation. Bipolar disorder: Continue home meds including [place] and Clozaril. [place] level 0.4. -Monitor for neutropenia and lithium level monthly, next time 06/15. DVT prophylaxis: Low risk, patient ambulating Discharge Planning Patient's sisters would like patient transferred to [place], patient has been discharged since 05/10/16. Awaiting pickup from [place] Surya Neely May 19, 2016 09:53
[2016-05-19 20:00] VITALS: BP 116/66; PULSE 68; RESP 16; TEMP 96.3; O2SAT 94
[2016-05-20 08:00] VITALS: BP 139/73; PULSE 80; RESP 20; TEMP 97.2; O2SAT 94
[2016-05-20] MEDS: cloZAPine 100 MG TAB PO SCH ×2 (08:32→20:45)
[2016-05-20] MEDS: LITHIUM CARBONATE 300 MG TAB PO SCH ×2 (08:32→20:45)
[2016-05-20] MEDS: TIOTROPIUM BROMIDE 18 MCG INH INH SCH (08:32)
--- NOTE | 2016-05-20 11:59 | HHI.PR ---
Subjective Remarks Patient seen and examined today. Patient has any new complaints. No change in clinical status. Awaiting case management for discharge planning Objective Vitals Vital Signs Date Time Temp Pulse Resp B/P Pulse Ox O2 Delivery O2 Flow Rate FiO2 05/20/16 08:00 97.2 80 20 139/73 94 05/19/16 20:00 96.3 68 16 116/66 94 I/O 05/19/16 05/19/16 05/19/16 05/20/16 05/20/16 05/20/16 07:00 15:00 23:00 07:00 15:00 23:00 Intake Total 940 ml 480 ml 480 ml Balance 940 ml 480 ml 480 ml Intake Oral 940 ml 480 ml 480 ml # Voids 2 6 4 3 # Bowel Movements 0 1 0 0 Objective Remarks GENERAL: Well-developed, well-nourished, in no acute distress. alert, orientated to [facility], person, not orientated to year, month, state HEENT: Head is normocephalic without any lesions or masses noted. Facial features are symmetric. Eyes: Extraocular muscles are intact. Conjunctivae were clear NECK: Trachea midline no deviation. CARDIAC: Regular rhythm, regular rate. S1/S2 are heard. No murmurs gallops or rubs. LUNGS: Clear to auscultation bilaterally. No wheeze, rhonchi or rales. No use of accessory muscles on inspiration or expiration. ABDOMEN: Soft, nontender. Nondistended. Bowel sounds heard in all 4 quadrants. No organomegaly or masses. Negative rebound, negative guarding EXTREMITIES: No edema, pulses are equal bilaterally. No cyanosis or clubbing NEUROLOGY: Mood and affect appear appropriate. Cranial nerves II through XII grossly intact. Moving all extremities, speech is clear Procedures none Urinary Catheter: No Vascular Central Line Catheter: No A/P Assessment and Plan 60-year-old male with a history of asthma, schizoaffective disorder, COPD presented to the ED with altered mental status [facility] his [facility] back. [facility] reporting increasing confusion despite lactulose use. Records reviewed. Encephalopathy: baseline. -Chest x-ray 03/02 personally reviewed with scarring at the right lung base, but no acute infection. -Head CT 03/06 without acute abnormality. -UA 03/07 without infection. -Normal ammonia level on 03/14 s/p lactulose treatment. -TSH 1.170 on 03/02 yet 3.780 on 03/06. Free T3, free T4 were normal -Physical therapy indicates that there is no need for continued physical therapy at this time. Physical therapy has been discontinued on 03/29. However they recommend patient to have PT at rehabilitation Malnutrition: Evidenced by low BMI and physical exam. Improved -Consulted manager marketing communication, started patient on Regular diet with Ensure Enlive on all meal trays. Skid Adzer following. -Prealbumin 22 COPD: chronic and stable, does not appear to be in exacerbation. Bipolar disorder: Continue home meds including [place] and Clozaril. [place] level 0.4. -Monitor for neutropenia and lithium level monthly, next time 06/15. DVT prophylaxis: Low risk, patient ambulating Discharge Planning Patient's sisters would like patient transferred to [place], patient has been discharged since 05/10/16. Awaiting pickup from [place] Surya Neely May 20, 2016 11:59
[2016-05-20 20:00] VITALS: BP 120/69; PULSE 71; RESP 20; TEMP 97.9; O2SAT 96
[2016-05-21 08:00] VITALS: BP 115/71; PULSE 80; RESP 20; TEMP 97.3; O2SAT 93
[2016-05-21] MEDS: LITHIUM CARBONATE 300 MG TAB PO SCH ×2 (08:53→20:21)
[2016-05-21] MEDS: cloZAPine 100 MG TAB PO SCH ×2 (08:53→20:21)
[2016-05-21] MEDS: TIOTROPIUM BROMIDE 18 MCG INH INH SCH (08:53)
--- NOTE | 2016-05-21 14:29 | HHI.PR ---
Subjective Remarks Follow-up for chronic encephalopathy. Patient has no acute complaints. Nurse reports patient was having arguments with imaginary person and screaming. Objective Vitals Vital Signs Date Time Temp Pulse Resp B/P Pulse Ox O2 Delivery O2 Flow Rate FiO2 05/21/16 08:00 97.3 80 20 115/71 93 05/20/16 20:00 97.9 71 20 120/69 96 I/O 05/20/16 05/20/16 05/20/16 05/21/16 05/21/16 05/21/16 07:00 15:00 23:00 07:00 15:00 23:00 Intake Total 480 ml 1200 ml 600 ml 300 ml Balance 480 ml 1200 ml 600 ml 300 ml Intake Oral 480 ml 1200 ml 600 ml 300 ml # Voids 3 5 4 3 # Bowel Movements 0 0 Objective Remarks GENERAL: Well developed patient in no apparent distress lying supine in bed. CARDIOVASCULAR: Regular rate and rhythm. RESPIRATORY: No accessory muscle use. Clear to auscultation bilaterally. GASTROINTESTINAL: Abdomen soft, nontender, nondistended. NEUROLOGICAL: Awake and alert. Appropriate. Procedures none Urinary Catheter: No Vascular Central Line Catheter: No A/P Problem List: (1) Encephalopathy ICD Code: G93.40 Status: Acute Assessment and Plan 60-year-old male with a history of asthma, schizoaffective disorder, COPD presented to the ED with altered mental status from his [facility] who refused to take him back. [facility] reporting increasing confusion despite lactulose use. Transferred to for senior care care pending placement. Encephalopathy: Stable. Ammonia level on 03/05/16 was 68, on lactulose at [facility]. Presented back to ED on 03/06 with increasing confusion, Ammonia level 16. Has not been on lactulose since admission, and ammonia now wnl. No history of liver cirrhosis. -Chest x-ray 03/02 with scarring at the right lung base, but no acute infection. -Head CT 03/06 without acute abnormality. -UA 03/07 without infection. -Normal ammonia level on 03/14 s/p lactulose treatment. -TSH 1.170 on 03/02 yet 3.780 on 03/06. Free T3 and T4 normal. -Physical therapy indicates that there is no need for continued physical therapy at this time. Physical therapy has been discontinued -Speech therapy initially evaluated patient on 04/12. MOCA score 8/30 indicating severe cognitive impairment. ST last evaluated patient on 05/06 still with moderate to severe cognitive deficits with no functional progress toward goals; at baseline. ST signed off. Malnutrition: Evidenced by low BMI and physical exam. Weight has improved since admission. Pre-albumin 22. -Consulted supervisor facepiece line; recommends to continue Ensure Enlive tid and double portions/protein with meals COPD: chronic, does not appear to be in exacerbation. -Continue Spiriva -Albuterol prn. Bipolar disorder: Continue home meds including [place] and Clozaril. -Monitor for neutropenia periodically due to Clozaril use. -[place] level low at 0.4 on 05/13. Patient taking medication. Repeat lithium level today normal at 0.6. -Psychiatry consulted for possible hallucinations. DVT prophylaxis: Low risk, patient ambulating. Lovenox was discontinued. Discharge Planning 05/21/16: I spoke with Tim Cedillo, oil field caser. Patient has been accepted to SNF in [place]. Dr. Snider, psychiatrist, has evaluated the patient today. I have put a call out to speak with him regarding any changes to treatment prior to discharging, but I have not hears back. Will hold discharge until tomorrow morning. Jazmin Lino May 21, 2016 14:29
[2016-05-21 20:00] VITALS: BP 117/69; PULSE 72; RESP 21; TEMP 96.8; O2SAT 95
[2016-05-22 08:00] VITALS: BP 129/81; PULSE 76; RESP 18; TEMP 96.9; O2SAT 97
[2016-05-22] MEDS: TIOTROPIUM BROMIDE 18 MCG INH INH SCH (08:02)
[2016-05-22] MEDS: LITHIUM CARBONATE 300 MG TAB PO SCH (08:02)
[2016-05-22] MEDS: cloZAPine 100 MG TAB PO SCH (08:02)
[2016-05-22] MEDS ORDERED: CLOZ100 PO (09:18)
--- NOTE | 2016-05-22 09:24 | HHI.PR ---
Subjective Remarks No acute complaints. No change in clinical status. Objective Vitals Vital Signs Date Time Temp Pulse Resp B/P Pulse Ox O2 Delivery O2 Flow Rate FiO2 05/22/16 08:00 96.9 76 18 129/81 97 05/21/16 20:00 96.8 72 21 117/69 95 I/O 05/21/16 05/21/16 05/21/16 05/22/16 05/22/16 05/22/16 07:00 15:00 23:00 07:00 15:00 23:00 Intake Total 300 ml 240 ml 240 ml Balance 300 ml 240 ml 240 ml Intake Oral 300 ml 240 ml 240 ml # Voids 3 2 1 # Bowel Movements 1 0 Objective Remarks GENERAL: Well developed patient in no apparent distress lying supine in bed. CARDIOVASCULAR: Regular rate and rhythm. RESPIRATORY: No accessory muscle use. Clear to auscultation bilaterally. GASTROINTESTINAL: Abdomen soft, nontender, nondistended. MUSCULOSKELETAL: No lower extremity edema bilaterally. NEUROLOGICAL: Awake and alert. Difficulty following commands. Procedures none Urinary Catheter: No Vascular Central Line Catheter: No A/P Problem List: (1) Encephalopathy ICD Code: G93.40 Status: Acute Assessment and Plan 60-year-old male with a history of asthma, schizoaffective disorder, COPD presented to the ED with altered mental status from his [facility] who refused to take him back. [facility] reporting increasing confusion despite lactulose use. Transferred to for residential care pending placement. Encephalopathy: Stable. Ammonia level on 03/05/16 was 68, on lactulose at [facility]. Presented back to ED on 03/06 with increasing confusion, Ammonia level 16. Has not been on lactulose since admission, and ammonia now wnl. No history of liver cirrhosis. -Chest x-ray 03/02 with scarring at the right lung base, but no acute infection. -Head CT 03/06 without acute abnormality. -UA 03/07 without infection. -Normal ammonia level on 03/14 s/p lactulose treatment. -TSH 1.170 on 03/02 yet 3.780 on 03/06. Free T3 and T4 normal. -Physical therapy indicates that there is no need for continued physical therapy at this time. Physical therapy has been discontinued -Speech therapy initially evaluated patient on 04/12. MOCA score 8/30 indicating severe cognitive impairment. ST last evaluated patient on 05/06 still with moderate to severe cognitive deficits with no functional progress toward goals; at baseline. ST signed off. Malnutrition: Evidenced by low BMI and physical exam. Weight has improved since admission. Pre-albumin 22. -Consulted auxiliary operator; recommends to continue Ensure Enlive tid and double portions/protein with meals COPD: chronic, does not appear to be in exacerbation. -Continue Spiriva -Albuterol prn. Schizoaffective d/o: Continue home meds including [place] and Clozaril. -Monitor for neutropenia periodically due to Clozaril use. -[place] level wnl at 0.6 on 05/22. -Psychiatry evaluated patient yesterday. I spoke with Dr. Snider this morning who would like to increase the patient's Clozaril to 150 mg by mouth twice a day. States he is cleared for discharge. DVT prophylaxis: Low risk, patient ambulating. Lovenox was discontinued. Discharge Planning 05/21/16: I spoke with Tim Cedillo, test case developer. Patient has been accepted to SNF in [place]. 05/22/16: I have spoken with psychiatrist who has increased Clozaril, and prescription has been written on discharge. Discharge order placed. I spoke with nurse who states patient will be picked up at 1330. Jazmin Lino May 22, 2016 09:24
--- NOTE | 2016-05-22 11:24 | PD.CONS ---
Provisional Diagnosis Admission Date Mar 06, 2016 at 18:42 [place]. Schizoaffective disorder History of Present Illness Service Psychiatry Consult Requested By Primary Care Physician Edyta Goode MD HPI The patient is a 60-year-old man, domiciled in [facility], psychiatric history of schizoaffective disorder, multiple psychiatric hospitalizations, no previous suicide attempts, he is on Clozaril 100 mg twice a day and lithium 300 mg twice a day, medical history of asthma, COPD hospitalized due to altered mental status, metabolic encephalopathy, now stable, he was consulted to psychiatry due to disorganized behavior, potential visual hallucinations. Collateral information from her nurse in charge was obtained, was pleased that the patient especially in the last 3-4 days has been increasingly talking to self, making gestures as if he were speaking with another person when nobody is present, but no agitation or aggressive behavior has been observed. Patient has been taking his medication, no significant side effects, he has been mostly calm and cooperative. On psychiatric evaluation today patient seems to be distant and superficial, with flat affect, with marked increase latency in his speech and thought blocking, however he was able to answer mostly monosyllabically to most of our questions. He reports good mood, he denies depressive symptoms, he denies anhedonia, sadness, hopelessness, helplessness, he denies suicidal or homicidal ideation. He denies visual and auditory hallucinations. Patient states that he is motivated to get better medically, be discharged to a place where he can live and take his medication and continue with his life. Patient says that he is willing to follow medical recommendations and follow-ups. Patient is partially oriented, he knows he is in a hospital, in [place], he knows it is April 2016. The patient denies paranoia, sensation of being in an unsafe environment or being followed by people, no delusions could be elicited, he denies ideas of reference, thought control. Patient seems to be internally preoccupied, at times he can deviates his eyes and talk to self. He denies the use of alcohol and illicit drugs. Review of Systems Constitutional: DENIES: Diaphoretic episodes, Fatigue, Fever, Weight gain, Weight loss, Chills, Dizziness, Change in appetite, Night Sweats Endocrine: DENIES: Heat/cold intolerance, Polydipsia, Polyuria, Polyphagia Eyes: DENIES: Blurred vision, Diplopia, Eye inflammation, Eye pain, Vision loss , Photosensitivity, Double Vision Ears, nose, mouth, throat: DENIES: Tinnitus, Hearing loss, Vertigo, Nasal discharge, Oral lesions, Throat pain, Hoarseness, Ear Pain, Running Nose, Epistaxis, Sinus Pain, Toothache, Odynophagia Respiratory: DENIES: Apneas, Cough, Snoring, Wheezing, Hemoptysis, Sputum production, Shortness of breath Cardiovascular: DENIES: Chest pain, Palpitations, Syncope, Dyspnea on Exertion , PND, Lower Extremity Edema, Orthopnea, Claudication Gastrointestinal: DENIES: Abdominal pain, Black stools, Bloody stools, Constipation, Diarrhea, Nausea, Vomiting, Difficulty Swallowing, Anorexia Musculoskeletal: DENIES: Joint pain, Muscle aches, Stiffness, Joint Swelling, Back pain, Neck pain Integumentary: DENIES: Abnormal pigmentation, Nail changes, Pruritus, Rash Hematologic/lymphatic: DENIES: Bruising, Lymphadenopathy Immunologic/allergic: DENIES: Eczema, Urticaria Neurologic: DENIES: Abnormal gait, Headache, Localized weakness, Paresthesias, Seizures, Speech Problems, Tremor, Poor Balance Psychiatric: DENIES: Anxiety, Confusion, Mood changes, Depression, Hallucinations, Agitation, Suicidal Ideation, Homicidal Ideation, Delusions Past Family Social History Coded Allergies: Penicillin (Verified Allergy, Severe, rash, 03/06/16) Active Scripts Tiotropium Inh (Spiriva Handihaler)18 Mcg Cap18 Mcg INH DAILY #30 CAP Ref 0 1 capsule = 18 mcg Prov:Jazmin Lino 05/10/16 Albuterol 18 GM Inh (Ventolin Hfa 18 GM Inh)90 Mcg/Act Aer1 Puff INH Q4-6H #1 INHALER Ref 0 Prov:Jazmin Lino 05/10/16 Clozapine 100 Mg [id number] Mg PO BID #60 TAB Ref 0 Prov:Jazmin Lino 05/10/16 [place] Carbonate 300 Mg [id number] Mg PO BID #60 CAP Ref 0 Prov:Jazmin Lino 05/10/16 Lactulose Liq 10 Gm/15 Ml Soln30 Ml PO TID 7 Days Ref 0 Prov:Radha Cruz MD 03/02/16 Current Medications Medications (Trade) Dose Ordered Sig/Sadaf Route Start Time Stop Time Status Last Admin (Spiriva Inh) 18 mcg DAILY INH 03/08/16 09:00 05/22/16 08:02 (Lithotabs) 300 mg BID PO 04/01/16 21:00 05/22/16 08:02 (Clozaril) 100 mg BID PO 05/01/16 21:00 05/22/16 08:02 Family History He denies Social History Patient is on [facility], he is single, has no kids, living in a [facility], his highest level of education is high school. Physical Exam Vital Signs Vital Signs Date Time Temp Pulse Resp B/P Pulse Ox O2 Delivery O2 Flow Rate FiO2 05/22/16 08:00 96.9 76 18 129/81 97 I/O 05/21/16 05/21/16 05/22/16 08:00 16:00 00:00 Intake Total 300 ml 240 ml Balance 300 ml 240 ml Mental Status Examination Appearance man, age appearing, [facility], fair hygiene, he is superficially cooperative, distant a little bit guarded Speech: Hesitant, Slow Orientation: x3, Place, Time Thought Process: Logical, Thought Blocking Thought Content: Unremarkable Hallucination Type: None Attention and Concentration: Good Suicidal Ideation: No Previous Suicide Attempts: No Homicidal Ideation: No Previous Homicide Attempts: No Insight: Fair Judgement: W[facility] Affect if Inappropriate: Flat Mood: Euthymic Motor Activity: Normal gait Assessment & Plan Problem List: (1) Schizoaffective disorder Assessment & Plan: The patient is a 60-year-old man with psychiatric history of schizoaffective disorder, multiple psychiatric hospitalizations, no previous suicide attempts, he is on Clozaril 100 mg twice a day and lithium 300 mg twice a day, medical history of asthma, COPD hospitalized due to altered mental status, metabolic encephalopathy, now stable, he was consulted to psychiatry due to disorganized behavior, potential visual hallucinations. However, on psychiatric evaluation the patient denies depressive symptoms, denies anxiety, denies perceptual disturbances, such as visual and auditory hallucinations, denies suicidal ideation. Blocking thought, flat affect, internal preoccupation, his speech latency are observed throughout the evaluation, but this symptomatology seems to be negative symptoms secondary to chronic psychosis and no due to an acute psychotic decompensation. Patient hasn 't been agitated, hasn't been aggressive, he doesn't seem to represent a danger to himself or other at this moment. No psychiatric intervention is needed, he does not meet criteria for inpatient psychiatric, his Clozaril can be increased to 150 mg twice a day to help with negative symptoms of his a schizoaffective disorder. Extensive psychoeducation supportive motivation provided. Consult appreciated. ICD Code: F25.9 Assessment & Plan Estimated LOS: days Problem Qualifiers (1) Schizoaffective disorder: Qualified Code: F25.9 - Schizoaffective disorder, unspecified type Niraj Snider MD May 22, 2016 11:24
[2016-05-22] MEDS ORDERED: PILL SPLITTER OTHER PRN (11:45)
--- NOTE | 2016-05-22 18:32 | HHI.DS ---
Discharge Summary Admission Date Mar 06, 2016 at 18:42 Discharge Date: May 22, 2016 Admitting Diagnosis AMS,gen weakness,unsteady gait,schizoaffective (1) Encephalopathy ICD Code: G93.40 Diagnosis: Principal Procedures none Brief History - From Admission 60-year-old male with a history of asthma, schizoaffective disorder, COPD presented to the ED with altered mental status from his [facility]. Per ED report the patient was sent from his [facility] for increased altered mental status and they refused to take him back. Patient was seen with the same symptoms 4 days ago and was noted to have an ammonia level of 68, he was then discharged back to the [facility] with lactulose by mouth. The [facility] facility stated patient has had increasing confusion and altered mental status despite lactulose use. Imaging Last Impressions Head CT 03/06/16 0772 Signed Impressions: Service Date/Time: Sunday, March 06, 2016 16:22 - CONCLUSION: Stable symmetric moderate ventriculomegaly Yuval Chavarria MD PE at Discharge GENERAL: Well developed patient in no apparent distress lying supine in bed. CARDIOVASCULAR: Regular rate and rhythm. RESPIRATORY: No accessory muscle use. Clear to auscultation bilaterally. GASTROINTESTINAL: Abdomen soft, nontender, nondistended. MUSCULOSKELETAL: No lower extremity edema bilaterally. NEUROLOGICAL: Awake and alert. Difficulty following commands. Hospital Course 60-year-old male with history of asthma, schizoaffective disorder, COPD presented to the ED with altered mental status from his [facility] who refused to take him back. His ammonia level on 03/05/16 was 68 and he was on lactulose at the [facility]. [facility] reported increasing confusion despite lactulose use. Ammonia level was only 16 on 03/06. Alcohol level on 03/06 was normal. He has not been on lactulose since admission, and ammonia returned to wnl on 03/14. Head CT was performed without abnormality. Chest x-ray and UA revealed no infection. Thyroid studies normal. Physical therapy initially worked with the patient but the patient has been quite ambulatory and PT was no longer necessary. Speech therapy initially evaluated patient on 04/12. MOCA score 8/30 indicating severe cognitive impairment. ST last evaluated patient on 05/06 still with moderate to severe cognitive deficits with no functional progress toward goals; at baseline. ST signed off. Patient has chronic encephalopathy. No report of alcohol abuse or liver cirrhosis, but patient does have chronic schizoaffective disorder and is on Peoa and Clozaril. Patient was noted to be malnourished on admission and was evaluated by dietitian. Pre-albumin and weight improved. Patient to continue on Ensure Enlive tid and double portions/protein with meals. Patient has a history of COPD but was not noted to be in acute exacerbation. Spiriva and albuterol continued. I was informed yesterday by the nurse that the patient was having arguments with an imaginary person and screaming. Psychiatry was consulted. I spoke with Dr. Snider this morning who states the patient is internally preoccupied. He does advise increasing his Clozaril dose to 150 mg po bid. Patient has been accepted to SNF in [place]. Pt Condition on Discharge: Fair Discharge Disposition: Discharge to SNF Discharge Time: > 30 minutes (SNF paperwork, documentation, case management coordination) Discharge Instructions DIET: Follow Instructions for: As Tolerated, No Restrictions Additional Diet Instructions: Ensure Enlive tid and double portions/protein with meals if possible Activities you can perform: Regular-No Restrictions Follow up Referrals: SNF/[facility]/ New Medications: Clozapine (Clozaril) 100 Mg Tab 150 MG PO BID Schizophrenia #90 Ref 0 TAB Changed Medications: Albuterol 18 GM Inh (Ventolin Hfa 18 GM Inh) 90 Mcg/Act Aer 1 PUFF INH Q4-6H wheezing #1 Ref 0 INHALER (Changed from: Q4H; Removed Reason) Continued Medications: [place] Carbonate ([place] Carbonate) 300 Mg Cap 300 MG PO BID Bipolar D/o #60 Ref 0 CAP (This prescription has been renewed) Tiotropium Inh (Spiriva Handihaler) 18 Mcg Cap 18 MCG INH DAILY 1 capsule = 18 mcg COPD #30 Ref 0 CAP (This prescription has been renewed) Discontinued Medications: Lactulose Liq (Lactulose Liq) 10 Gm/15 Ml Soln 30 ML PO TID hyperammonemia Days 7 Ref 0 ML Jazmin Lino May 22, 2016 18:31
[2016-05-22] MEDS ORDERED: cloZAPine 100 MG TAB PO SCH (21:00)
== END 2016-05-22 13:45 ==
LOC: NEPC 15:03 → NEDA 18:42 → NEPGCP 20:51 → N05A 03-15 20:58 → PH5A 03-29 17:14
PROVIDERS: ADMIT Family Medicine; ATTEND Family Medicine
DX: G93.41 Metabolic encephalopathy (principal); R40.4 Transient alteration of awareness; R26.81 Unsteadiness on feet; F25.9 Schizoaffective disorder, unspecified; F17.210 Nicotine dependence, cigarettes, uncomplicated; J44.9 Chronic obstructive pulmonary disease, unspecified; J45.909 Unspecified asthma, uncomplicated; Z85.118 Personal history of other malignant neoplasm of bronchus and lung; E46 Unspecified protein-calorie malnutrition; D72.829 Elevated white blood cell count, unspecified
CPT/HCPCS: 70450; 80048; 80053; 80178; 80320; 81001; 82140; 84134; 84439; 84443; 84481; 85025; 94664; 96125; 97001; 97110; 97116; 97530; 97532; 99285; G0378; G8987; G8988; J1650; J7030; J7613; P9612; G0479